=== PATIENT | female | born 2000 | race Caucasian/White ===

== ENCOUNTER 2023-06-15 19:53 | Emergency (ER) | payer OTHER, SELFPAY ==
[2023-06-15 19:58] VITALS: BP 107/81; PULSE 113; RESP 15; TEMP 37.2; O2SAT 98; BMI 21.9
--- NOTE | 2023-06-15 21:20 | ED.GENADUL1 ---
Documented by User: LEDY Mares 06/15/23 21:56 HPI - General Adult General Chief complaint: Nausea/Vomiting/Diarrhea Stated complaint: DIZZY Time Seen by Provider: 06/15/23 20:05 Source: patient Mode of arrival: walk-in Limitations: no limitations History of Present Illness HPI narrative: Patient is a 22-year-old female who presents to the emergency department for the evaluation of multiple complaints. Patient is well-known to this emergency department for a longstanding history of Crohn's disease and chronic pain to the abdomen. She states she has not had a Crohn's exacerbation in over a year, she had a colostomy placed in 2018. She sees a GI doctor at the [facility], she is not currently on any daily medications for Crohn's disease due to her recent 3 months ago. She has not had any fevers. She reports 3 days of nausea, vomiting. She has had decreased output to her colostomy bag. She reports a headache, she took a negative COVID test at home. She was apparently at [facility] 2 days ago for the same and states she was given a prescription for potassium pills. She states she saw potassium pill in her colostomy bag so she does not believe it is absorbing. She states she feels dizzy after vomiting. Related Data Allergies Allergy/AdvReac Type Severity Reaction Status Date / Time iron Allergy Intermediate Hives Verified 06/15/23 20:04 ketorolac [From Toradol] Allergy Intermediate hives Verified 06/15/23 20:04 Penicillins Allergy Intermediate Hives Verified 06/15/23 20:04 tramadol Allergy Intermediate Hives Verified 06/15/23 20:04 vancomycin Allergy Intermediate Hives Verified 06/15/23 20:04 chg Allergy Intermediate Hives Uncoded 06/15/23 20:04 Review of Systems ROS Constitutional Denies: fever or chills Ears, nose, mouth, and throat Denies: throat pain or nasal congestion Cardiovascular Denies: chest pain Respiratory Denies: shortness of breath or cough Gastrointestinal Reports: abdominal pain, nausea and vomiting; Denies: diarrhea Genitourinary Denies: painful urination Musculoskeletal Denies: back pain or neck pain Integumentary/Breast Denies: rash Neurological Reports: headache Endocrine Denies: excessive urination Exam Narrative Exam Narrative: Gen.: Awake, alert, in no distress Head: Normocephalic, atraumatic ENT: Moist mucous membranes Respiratory: No respiratory distress, lungs clear bilaterally Cardio: Regular rate and rhythm Gastrointestinal: Abdomen is soft, diffusely tender to palpation with voluntary guarding, colostomy noted to the right abdomen Extremities: Moves extremities equally Psych: Normal mood and affect Neuro: No focal neuro deficit Skin: Warm, dry, intact Constitutional Vital Signs, click to edit/add: Last Vital Signs Temp 98.9 F 06/15/23 19:58 Pulse 79 06/15/23 23:53 Resp 18 06/15/23 23:53 BP 107/72 06/15/23 23:53 Pulse Ox 100 06/15/23 23:53 O2 Del Method Room Air 06/15/23 19:58 Course Vital Signs Vital signs: Vital Signs Temperature 98.9 F 06/15/23 19:58 Pulse Rate 113 H 06/15/23 19:58 Respiratory Rate 15 06/15/23 19:58 Blood Pressure 107/81 06/15/23 19:58 Pulse Oximetry 98 06/15/23 19:58 Oxygen Delivery Method Room Air 06/15/23 19:58 Temperature 98.9 F 06/15/23 19:58 Pulse Rate 79 06/15/23 23:53 Respiratory Rate 18 06/15/23 23:53 Blood Pressure 107/72 06/15/23 23:53 Pulse Oximetry 100 06/15/23 23:53 Oxygen Delivery Method Room Air 06/15/23 19:58 Medical Decision Making MDM Narrative Medical decision making narrative: 2153: Patient found to be orthostatic positive, she was ordered to have IV fluids, medications for nausea and abdominal pain. Patient states she needs to have Benadryl with her medications for pain. I obtain records from [facility] showing the patient was there 2 days ago and signed out AGAINST MEDICAL ADVICE. Case is turned over to attending physician Medical Records Medical records reviewed: Yes I reviewed the patient's medical records Lab Data Labs: Lab Results 06/15/23 06/15/23 06/15/23 Range/Units 21:35 21:50 22:40 WBC 13.1 H (4.0-11.0) 10^3/uL RBC 4.23 (4.20-5.40) 10^6/uL Hgb 11.6 L (12.0-16.0) g/dL Hct 35.2 L (36.0-48.0) % MCV 83.2 (81.0-99.0) fL MCH 27.4 (26.7-34.0) pg MCHC 33.0 (29.9-35.2) g/dL RDW 12.7 (11.0-15.0) % Plt Count 276 (150-450) 10^3/uL MPV 10.1 (9.5-13.5) fL Neut % (Auto) 69.0 (43.0-75.0) % Lymph % (Auto) 20.7 (20.5-60.0) % [place] % (Auto) 6.3 (1.7-12.0) % Eos % (Auto) 3.1 (0.9-7.0) % Baso % (Auto) 0.7 (0.2-2.0) % Neut # (Auto) 9.1 H (1.4-6.5) 10^3/uL Lymph # (Auto) 2.7 (1.2-3.8) 10^3/uL [place] # (Auto) 0.8 (0.3-0.8) 10^3/uL Eos # (Auto) 0.4 (0.0-0.7) 10^3/uL Baso # (Auto) 0.1 (0.0-0.1) 10^3/uL Abs Immat Gran (auto) 0.03 (0.00-0.03) 10^3/uL Imm/Tot Granulo (auto) 0.2 (0.0-0.5) % ESR 34 H (<=20) mm/hr Sodium 126 L (136-145) mmol/L Potassium >10.0 H* 3.1 L (3.5-5.1) mmol/L Chloride 103 (98-107) mmol/L Carbon Dioxide 23.5 (21.0-32.0) mmol/L Anion Gap 9.88260 BUN 17.0 (7.0-18.0) mg/dL Creatinine 1.16 H (0.55-1.02) mg/dL Est GFR ( Amer) >60 (>=60) Est GFR (Non-Af Amer) 57 L (>=60) BUN/Creatinine Ratio 14.7 Glucose 94 (74-106) mg/dL Lactate 0.7 (0.4-2.0) mmol/L Calcium 8.4 L (8.5-10.1) mg/dL Total Bilirubin 1.9 H (0.2-1.0) mg/dL AST 52 H (15-37) U/L ALT 62 H (14-59) U/L Alkaline Phosphatase 185 H (46-116) U/L C-Reactive Protein <0.50 (<=0.50) mg/dL Total Protein 7.6 (6.4-8.2) g/dL Albumin 3.9 (3.4-5.0) g/dL Globulin 3.7 g/dL Albumin/Globulin Ratio 1.1 Lipase 12.0 L (16.0-77.0) U/L Serum HCG, Qual Negative (NEGATIVE) Urine Color Yellow (YELLOW) Urine Clarity Clear (CLEAR) Urine pH 5.5 (5.0-9.0) Ur Specific [place] >=1.030 A (1.005-1.025) Urine Protein 30 A (NEG/TRACE) mg/dL Urine Glucose (UA) Negative (NEGATIVE) mg/dL Urine Ketones Negative (NEGATIVE) mg/dL Urine Occult Blood Trace-i (NEGATIVE) Urine Nitrite Negative (NEGATIVE) Urine Bilirubin Negative (NEGATIVE) Urine Urobilinogen 0.2 (0.2-1.0) EU/dL Ur Leukocyte Esterase Negative (NEGATIVE) Urine RBC 0-2 (0-2) #/HPF Urine WBC 2-5 A (NONE SEEN) #/HPF Ur Squamous Epith Cells Few A (NONE/RARE) #/LPF Urine Crystals None seen (None Seen) #/HPF Urine Bacteria Moderate A (NONE SEEN) #/HPF Urine Casts None seen (NONE SEEN) #/LPF Urine Mucus None seen (NONE SEEN) Ur Culture Indicated? Yes Influenza Type A Ag Negative Influenza Type B Ag Negative Discharge Plan Discharge Chief Complaint: Nausea/Vomiting/Diarrhea Clinical Impression: Nausea and vomiting, Abdominal pain Patient Disposition: Home, Self-Care Time of Disposition Decision: 01:08 Condition: Good Instructions: Acute Nausea and Vomiting (ED), Acute Abdominal Pain (ED) Stand Alone Forms: Portal Instructions Referrals: Physician,Non-Staff, MD [Primary Care Provider] - 1 week Discharge Date/Time: 06/16/23 01:50 Documented by User: Polly Dominguez MD 06/16/23 03:31 HPI - General Adult General Chief complaint: Nausea/Vomiting/Diarrhea Stated complaint: DIZZY Time Seen by Provider: 06/15/23 20:05 Related Data Allergies Allergy/AdvReac Type Severity Reaction Status Date / Time iron Allergy Intermediate Hives Verified 06/15/23 20:04 ketorolac [From Toradol] Allergy Intermediate hives Verified 06/15/23 20:04 Penicillins Allergy Intermediate Hives Verified 06/15/23 20:04 tramadol Allergy Intermediate Hives Verified 06/15/23 20:04 vancomycin Allergy Intermediate Hives Verified 06/15/23 20:04 chg Allergy Intermediate Hives Uncoded 06/15/23 20:04 Exam Constitutional Vital Signs, click to edit/add: Last Vital Signs Temp 98.9 F 06/15/23 19:58 Pulse 79 06/15/23 23:53 Resp 18 06/15/23 23:53 BP 107/72 06/15/23 23:53 Pulse Ox 100 06/15/23 23:53 O2 Del Method Room Air 06/15/23 19:58 Course Vital Signs Vital signs: Vital Signs Temperature 98.9 F 06/15/23 19:58 Pulse Rate 113 H 06/15/23 19:58 Respiratory Rate 15 06/15/23 19:58 Blood Pressure 107/81 06/15/23 19:58 Pulse Oximetry 98 06/15/23 19:58 Oxygen Delivery Method Room Air 06/15/23 19:58 Temperature 98.9 F 06/15/23 19:58 Pulse Rate 79 06/15/23 23:53 Respiratory Rate 18 06/15/23 23:53 Blood Pressure 107/72 06/15/23 23:53 Pulse Oximetry 100 06/15/23 23:53 Oxygen Delivery Method Room Air 06/15/23 19:58 Medical Decision Making MDM Narrative Medical decision making narrative: 2153: Patient found to be orthostatic positive, she was ordered to have IV fluids, medications for nausea and abdominal pain. Patient states she needs to have Benadryl with her medications for pain. I obtain records from [facility] showing the patient was there 2 days ago and signed out AGAINST MEDICAL ADVICE. Case is turned over to attending physician This patient was seen and examined in conjunction with the PA, please refer to her full H&P. She was medicated with 4 mg of morphine for her pain prior to going to CT scan. CT scan which included in the body of this report does not show any acute Crohn's exacerbation. Patient was seen and evaluated. The results of the CT scan and labs were discussed with her at length and her mother was on a call with her to listen to the findings. The patient states that she has had decreased output from her ostomy recently. She wanted to know she is not having a Crohn's exacerbation what was causing her pain. I explained to her that she may be a little bit dehydrated which is causing some abdominal cramping but otherwise everything looked okay. She does feel compelled being discharged home but will receive additional IV fluids while she is awaiting a ride. Medical Records Medical records narrative: The [place] [id number] CT Scan Report Signed Patient: BONNIE JOHANSEN MR#: [id number] : 2000 Acct:[id number] Age/Sex: 22 / F ADM Date: 06/15/23 Loc: ER Attending Dr: Ordering Physician: Polly Dominguez Date of Service: 06/15/23 Procedure(s): CT abdomen pelvis wo con Accession Number(s): [id number] cc: Physician,Non-Staff M.D.~ The [address] [address] Patient Name: BONNIE JOHANSEN MRN: [id number] date: 2000 Sex: F Assigned Patient Location: ER Current Patient Location: ER Accession/Order Number: [id number] Exam Date: 06/15/2023 23:52 Report Date: 06/16/2023 00:49 At the request of: POLLY DOMINGUEZ Procedure: CT abdomen pelvis wo con EXAM: CT abdomen pelvis wo con HISTORY: abd pain, hx Crohn's COMPARISON: CT abdomen pelvis, 12/26/2021. TECHNIQUE: Nonenhanced CT imaging the abdomen and pelvis was performed with sagittal and coronal reconstructions. Dose reduction techniques were achieved by using automated exposure control and/or adjustment of mA and/or kV according to patient size and/or use of iterative reconstruction technique. FINDINGS: CT ABDOMEN: The lung bases are clear. The imaged heart is unremarkable. The exam is limited by the lack of IV contrast. Solid organ lesions or acute abnormalities could be missed. Allowing for this, the liver is mildly enlarged but otherwise unremarkable. The gallbladder, pancreas, spleen, adrenal glands, kidneys, stomach, small bowel, aorta and IVC are grossly unremarkable. Numerous nonenlarged subcentimeter mesenteric lymph nodes are again noted. No pathologically enlarged nodes are identified in the abdomen or pelvis. CT PELVIS: Right hemicolectomy with right lower quadrant ileostomy are unchanged. There is fatty infiltration in the mildly thickened wall of the decompressed transverse and descending colon compatible with prior colitis. No acute inflammation is seen. The pelvic small bowel loops and urinary bladder are unremarkable. There is a tampon in the vagina. The uterus is mildly enlarged with a mildly lobular contour favoring underlying fibroids. No inflammatory fat stranding, free fluid, loculated fluid or free air is seen in the abdomen or pelvis. Postoperative scarring is noted in the anterior abdominal wall in the suprapubic region. No acute osseous abnormality or suspicious bony lesion is seen. CT/CT abdomen pelvis wo con IMPRESSION: Allowing for exam limitations due to the lack of contrast, no acute diagnostic abnormality is seen in the abdomen or pelvis. Specifically, no acute exacerbation of the patient's Crohn's disease is identified on this nonenhanced exam. Chronic changes are described above. Electronically authenticated by: GENIE HALL Date: 06/16/2023 00:49 Lab Data Labs: Lab Results 06/15/23 06/15/23 06/15/23 Range/Units 21:35 21:50 22:40 WBC 13.1 H (4.0-11.0) 10^3/uL RBC 4.23 (4.20-5.40) 10^6/uL Hgb 11.6 L (12.0-16.0) g/dL Hct 35.2 L (36.0-48.0) % MCV 83.2 (81.0-99.0) fL MCH 27.4 (26.7-34.0) pg MCHC 33.0 (29.9-35.2) g/dL RDW 12.7 (11.0-15.0) % Plt Count 276 (150-450) 10^3/uL MPV 10.1 (9.5-13.5) fL Neut % (Auto) 69.0 (43.0-75.0) % Lymph % (Auto) 20.7 (20.5-60.0) % Schley % (Auto) 6.3 (1.7-12.0) % Eos % (Auto) 3.1 (0.9-7.0) % Baso % (Auto) 0.7 (0.2-2.0) % Neut # (Auto) 9.1 H (1.4-6.5) 10^3/uL Lymph # (Auto) 2.7 (1.2-3.8) 10^3/uL [place] # (Auto) 0.8 (0.3-0.8) 10^3/uL Eos # (Auto) 0.4 (0.0-0.7) 10^3/uL Baso # (Auto) 0.1 (0.0-0.1) 10^3/uL Abs Immat Gran (auto) 0.03 (0.00-0.03) 10^3/uL Imm/Tot Granulo (auto) 0.2 (0.0-0.5) % ESR 34 H (<=20) mm/hr Sodium 126 L (136-145) mmol/L Potassium >10.0 H* 3.1 L (3.5-5.1) mmol/L Chloride 103 (98-107) mmol/L Carbon Dioxide 23.5 (21.0-32.0) mmol/L Anion Gap 9.86429 BUN 17.0 (7.0-18.0) mg/dL Creatinine 1.16 H (0.55-1.02) mg/dL Est GFR ( Amer) >60 (>=60) Est GFR (Non-Af Amer) 57 L (>=60) BUN/Creatinine Ratio 14.7 Glucose 94 (74-106) mg/dL Lactate 0.7 (0.4-2.0) mmol/L Calcium 8.4 L (8.5-10.1) mg/dL Total Bilirubin 1.9 H (0.2-1.0) mg/dL AST 52 H (15-37) U/L ALT 62 H (14-59) U/L Alkaline Phosphatase 185 H (46-116) U/L C-Reactive Protein <0.50 (<=0.50) mg/dL Total Protein 7.6 (6.4-8.2) g/dL Albumin 3.9 (3.4-5.0) g/dL Globulin 3.7 g/dL Albumin/Globulin Ratio 1.1 Lipase 12.0 L (16.0-77.0) U/L Serum HCG, Qual Negative (NEGATIVE) Urine Color Yellow (YELLOW) Urine Clarity Clear (CLEAR) Urine pH 5.5 (5.0-9.0) Ur Specific [place] >=1.030 A (1.005-1.025) Urine Protein 30 A (NEG/TRACE) mg/dL Urine Glucose (UA) Negative (NEGATIVE) mg/dL Urine Ketones Negative (NEGATIVE) mg/dL Urine Occult Blood Trace-i (NEGATIVE) Urine Nitrite Negative (NEGATIVE) Urine Bilirubin Negative (NEGATIVE) Urine Urobilinogen 0.2 (0.2-1.0) EU/dL Ur Leukocyte Esterase Negative (NEGATIVE) Urine RBC 0-2 (0-2) #/HPF Urine WBC 2-5 A (NONE SEEN) #/HPF Ur Squamous Epith Cells Few A (NONE/RARE) #/LPF Urine Crystals None seen (None Seen) #/HPF Urine Bacteria Moderate A (NONE SEEN) #/HPF Urine Casts None seen (NONE SEEN) #/LPF Urine Mucus None seen (NONE SEEN) Ur Culture Indicated? Yes Influenza Type A Ag Negative Influenza Type B Ag Negative Discharge Plan Discharge Chief Complaint: Nausea/Vomiting/Diarrhea Clinical Impression: Nausea and vomiting, Abdominal pain Patient Disposition: Home, Self-Care Time of Disposition Decision: 01:08 Condition: Good Instructions: Acute Nausea and Vomiting (ED), Acute Abdominal Pain (ED) Stand Alone Forms: Portal Instructions Referrals: Physician,Non-Staff, MD [Primary Care Provider] - 1 week Discharge Date/Time: 06/16/23 01:50
[2023-06-15 21:27] VITALS: BP 100/76; PULSE 97
[2023-06-15 21:28] VITALS: BP 111/82; BP 119/102; PULSE 105; PULSE 125
[2023-06-15] MEDS: METOCLOPRAMIDE HCL 10 MG/2 ML VIAL IVP (22:00)
[2023-06-15] MEDS: DIPHENHYDRAMINE HCL 50 MG/ML (1ML) VIAL 25 MG IV (22:00)
[2023-06-15] MEDS: 0.9 % SODIUM CHLORIDE 1,000 ML 999 ML IV (22:00)
[2023-06-15] MEDS: HYOSCYAMINE SULFATE 0.125 MG TAB.SUBL SL (22:00)
[2023-06-15 22:01] LABS: Basophils Absolute Auto 0.1 10^3/uL (0.0-0.1); Basophils Percent Auto 0.7 % (0.2-2.0); Bilirubin Urine NEGATIVE (NEGATIVE); Blood Urine TRACE-I (NEGATIVE); Clarity Urine CLEAR (CLEAR); Color Urine YELLOW (YELLOW); Eosinophils Absolute Auto 0.4 10^3/uL (0.0-0.7); Eosinophils Percent Auto 3.1 % (0.9-7.0); Glucose Urine UA NEGATIVE (NEGATIVE); Hematocrit 35.2 % (36.0-48.0); Hemoglobin 11.6 g/dL (12.0-16.0); Immature Granulocytes Abs Auto 0.03 10^3/uL (0.00-0.03); Immature Granulocytes Pct Auto 0.2 % (0.0-0.5); Ketones Urine NEGATIVE (NEGATIVE); Leukocyte Esterase Urine NEGATIVE (NEGATIVE); Lymphocytes Absolute Auto 2.7 10^3/uL (1.2-3.8); Lymphocytes Percent Auto 20.7 % (20.5-60.0); Mean Corpuscular Hemoglobin 27.4 pg (26.7-34.0); Mean Corpuscular Volume 83.2 fL (81.0-99.0); Mean Platelet Volume 10.1 fL (9.5-13.5); Monocytes Absolute Auto 0.8 10^3/uL (0.3-0.8); Monocytes Percent Auto 6.3 % (1.7-12.0); Neutrophils Absolute Auto 9.1 10^3/uL (1.4-6.5); Nitrite Urine NEGATIVE (NEGATIVE); Platelet Count 276 10^3/uL (150-450); Protein Urine 30 mg/dL (NEG/TRACE); Red Blood Count 4.23 10^6/uL (4.20-5.40); Red Cell Distribution Width 12.7 % (11.0-15.0); Specific Gravity Urine >=1.030 (1.005-1.025); Urobilinogen Urine 0.2 EU/dL (0.2-1.0); White Blood Count 13.1 10^3/uL (4.0-11.0); pH Urine 5.5 (5.0-9.0)
[2023-06-15 22:03] LABS: Urine Microscopic Indicated YES
[2023-06-15 22:08] LABS: Erythrocyte Sedimentation Rate 34 mm/hr (<=20)
[2023-06-15 22:11] LABS: Bacteria Urine MODERATE #/HPF (NONE SEEN); Cast Seen? NONE SEEN #/LPF (NONE SEEN); Crystals Seen? None Seen #/HPF (None Seen); Mucus Urine NONE SEEN (NONE SEEN); RBC Urine 0-2 #/HPF (0-2); Squamous Epithelial Cell Urine FEW #/LPF (NONE/RARE)
[2023-06-15 22:12] LABS: Influenza Virus A Antigen Negative; Influenza Virus B Antigen Negative; Internal Control Within Normal Limits
[2023-06-15 22:12] LABS: Urine Culture Indicated YES
[2023-06-15 22:13] LABS: HCG Qualitative NEGATIVE (NEGATIVE)
[2023-06-15 22:16] LABS: Alanine Aminotransferase 62 U/L (14-59); Albumin Globulin Ratio 1.1; Albumin Level 3.9 g/dL (3.4-5.0); Alkaline Phosphatase 185 U/L (46-116); Aspartate Amino Transferase 52 U/L (15-37); BUN Creatinine Ratio 14.7; Bilirubin Total 1.9 mg/dL (0.2-1.0); Calcium 8.4 mg/dL (8.5-10.1); Carbon Dioxide 23.5 mmol/L (21.0-32.0); Chloride 103 mmol/L (98-107); Estimated GFR (African America >60 (>=60); Estimated GFR (Non-African Ame 57 (>=60); Globulin 3.7 g/dL; Glucose 94 mg/dL (74-106); Sodium 126 mmol/L (136-145); Total Protein 7.6 g/dL (6.4-8.2)
[2023-06-15 22:19] LABS: Lactate/Lactic Acid 0.7 mmol/L (0.4-2.0)
[2023-06-15 22:29] LABS: Potassium >10.0 mmol/L (3.5-5.1)
[2023-06-15 22:30] LABS: C Reactive Protein <0.50 mg/dL (<=0.50)
--- NOTE | 2023-06-15 22:34 | CT_ITS ---
The [address] [address] Patient Name: BONNIE JOHANSEN MRN: [id number] date: 2000 Sex: F Assigned Patient Location: ER Current Patient Location: ER Accession/Order Number: [id number] Exam Date: 06/15/2023 23:52 Report Date: 06/16/2023 00:49 At the request of: MELLISSA MARKER Procedure: CT abdomen pelvis wo con EXAM: CT abdomen pelvis wo con HISTORY: abd pain, hx Crohn's COMPARISON: CT abdomen pelvis, 12/26/2021. TECHNIQUE: Nonenhanced CT imaging the abdomen and pelvis was performed with sagittal and coronal reconstructions. Dose reduction techniques were achieved by using automated exposure control and/or adjustment of mA and/or kV according to patient size and/or use of iterative reconstruction technique. FINDINGS: CT ABDOMEN: The lung bases are clear. The imaged heart is unremarkable. The exam is limited by the lack of IV contrast. Solid organ lesions or acute abnormalities could be missed. Allowing for this, the liver is mildly enlarged but otherwise unremarkable. The gallbladder, pancreas, spleen, adrenal glands, kidneys, stomach, small bowel, aorta and IVC are grossly unremarkable. Numerous nonenlarged subcentimeter mesenteric lymph nodes are again noted. No pathologically enlarged nodes are identified in the abdomen or pelvis. CT PELVIS: Right hemicolectomy with right lower quadrant ileostomy are unchanged. There is fatty infiltration in the mildly thickened wall of the decompressed transverse and descending colon compatible with prior colitis. No acute inflammation is seen. The pelvic small bowel loops and urinary bladder are unremarkable. There is a tampon in the vagina. The uterus is mildly enlarged with a mildly lobular contour favoring underlying fibroids. No inflammatory fat stranding, free fluid, loculated fluid or free air is seen in the abdomen or pelvis. Postoperative scarring is noted in the anterior abdominal wall in the suprapubic region. No acute osseous abnormality or suspicious bony lesion is seen. CT/CT abdomen pelvis wo con IMPRESSION: Allowing for exam limitations due to the lack of contrast, no acute diagnostic abnormality is seen in the abdomen or pelvis. Specifically, no acute exacerbation of the patient's Crohn's disease is identified on this nonenhanced exam. Chronic changes are described above. Electronically authenticated by: GENIE HALL Date: 06/16/2023 00:49
[2023-06-15 23:01] LABS: Potassium 3.1 mmol/L (3.5-5.1)
[2023-06-15] MEDS: MORPHINE SULFATE 4 MG/ML VIAL IV (23:40)
[2023-06-15 23:53] VITALS: BP 107/72; PULSE 79; RESP 18; O2SAT 100
[2023-06-16] MEDS: 0.9 % SODIUM CHLORIDE 1,000 ML 1000 ML IV (01:27)
== END 2023-06-16 01:50 | disposition home or self-care (01) ==
PROVIDERS: Physician Assistant; Emergency Provider Emergency Medicine
DX: R11.2 Nausea with vomiting, unspecified (principal); R10.9 Unspecified abdominal pain; K50.90 Crohn's disease, unspecified, without complications; Z93.3 Colostomy status; R51.9 Headache, unspecified; R42 Dizziness and giddiness
CPT/HCPCS: 36415; 74176; 80053; 81001; 83605; 83690; 84132; 84703; 85025; 85652; 86140; 87086; 87804; 96361; 96374; 96375; 99284

== ENCOUNTER 2024-04-03 20:57 | Emergency (ER) | payer OTHER, SELFPAY ==
[2024-04-03 21:05] VITALS: BP 114/75; PULSE 57; TEMP 37; O2SAT 99; BMI 22.9
--- NOTE | 2024-04-03 21:21 | PC.NURSE ---
Patient states she had bright red blood in her colostomy bag at 1860. Patient currently has bag full of yellow liquid stool, no blood noted at this time. stoma is nice and pink. patient bag is leaking. 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
--- NOTE | 2024-04-03 21:22 | ED_ITS ---
HPI - GI Bleed General Chief complaint: GI Bleed Stated complaint: Package Dye Stand Loader Issues Time Seen by Provider: 04/03/24 21:06 Source: patient Mode of arrival: walk-in Limitations: no limitations History of Present Illness HPI Narrative: patient states she has history of Crohn's disease. has colostomy bag. States she is scheduled for reversal surgery at [facility]. States tonight she noticed blood from her stoma. States called [facility] and was advised to go to ER. States her colostomy bag is also leaking and she does not have any replacement bags no fever. States she does have abdominal pain. Related Data Allergies Allergy/AdvReac Type Severity Reaction Status Date / Time iron Allergy Intermediate Hives Verified 04/03/24 21:14 ketorolac (From Toradol) Allergy Intermediate hives Verified 04/03/24 21:14 Penicillins Allergy Intermediate Hives Verified 04/03/24 21:14 tramadol Allergy Intermediate Hives Verified 04/03/24 21:14 vancomycin Allergy Intermediate Hives Verified 04/03/24 21:14 chg Allergy Intermediate Hives Uncoded 04/03/24 21:14 Review of Systems ROS Status of ROS 10 or more systems reviewed and unremark able except as noted in history and below PFSH PFSH Social History Little interest or pleasure in doing things: not at all Feeling down, depressed, or hopeless: not at all Exam Constitutional Vital Signs, click to edit/add: Last Vital Signs Temp 98.6 F 04/03/24 21:05 Pulse 71 04/03/24 21:54 Resp 18 04/03/24 21:05 BP 102/75 04/03/24 21:54 Pulse Ox 99 04/03/24 21:05 Common normals: no apparent distress, average body habitus, oriented x3, no limitations, healthy appearing, alert and well nourished [facility] Common normals: normocephalic and head/scalp atraumatic Eye Common normals: PERRL and EOMs intact bilaterally Respiratory Common normals: normal respiratory effort, no retractions, no use of accessory muscles and clear to auscultation bilaterally Cardio Common normals: regular rate, regular rhythm, S1 normal heart sound and S2 normal heart sound GI Common normals: Normal to inspection, nondistended, normoactive bowel sounds present (colostomy bag in place. Stoma viewed thru the bag appears normal), soft to palpation and non-tender (no evidence of blood in the bag. mild leakage from right side of bag) Extremity Common normals: normal to inspection and full ROM Neuro Common normals: oriented x3, CN's II-XII intact bilaterally and moves all extremities Psych Appearance: grossly normal Course Vital Signs Vital signs: Vital Signs Temperature 98.6 F 04/03/24 21:05 Pulse Rate 57 L 04/03/24 21:05 Respiratory Rate 18 04/03/24 21:05 Blood Pressure 114/75 04/03/24 21:05 Pulse Oximetry 99 04/03/24 21:05 Temperature 98.6 F 04/03/24 21:05 Pulse Rate 71 04/03/24 21:54 Respiratory Rate 18 04/03/24 21:05 Blood Pressure 102/75 04/03/24 21:54 Pulse Oximetry 99 04/03/24 21:05 MDM - GI Bleed MDM Narrative Medical decision making narrative: patient presents complaining of bleeding from her colostomy bag. content in bag appear normal in appearance. bag changed and stoma appears normal as well. No evidence of bleeding. CBC remains at baseline. Patient discharged home to followup with GI. States she is suppose to have her colostomy reversed next week Lab Data Labs: Lab Results 04/03/24 Range/Units 21:30 WBC 9.8 (4.0-11.0) 10^3/uL RBC 4.16 L (4.20-5.40) 10^6/uL Hgb 11.0 L (12.0-16.0) g/dL Hct 33.8 L (36.0-48.0) % MCV 81.3 (81.0-99.0) fL MCH 26.4 L (26.7-34.0) pg MCHC 32.5 (29.9-35.2) g/dL RDW 13.2 (11.0-15.0) % Plt Count 187 (150-450) 10^3/uL MPV 10.2 (9.5-13.5) fL Neut % (Auto) 57.0 (43.0-75.0) % Lymph % (Auto) 28.8 (20.5-60.0) % [place] % (Auto) 5.9 (1.7-12.0) % Eos % (Auto) 7.3 H (0.9-7.0) % Baso % (Auto) 0.8 (0.2-2.0) % Neut # (Auto) 5.6 (1.4-6.5) 10^3/uL Lymph # (Auto) 2.8 (1.2-3.8) 10^3/uL [place] # (Auto) 0.6 (0.3-0.8) 10^3/uL Eos # (Auto) 0.7 (0.0-0.7) 10^3/uL Baso # (Auto) 0.1 (0.0-0.1) 10^3/uL Abs Immat Gran (auto) 0.02 (0.00-0.03) 10^3/uL Imm/Tot Granulo (auto) 0.2 (0.0-0.5) % Sodium 137 (136-145) mmol/L Potassium 3.6 (3.5-5.1) mmol/L Chloride 102 (98-107) mmol/L Carbon Dioxide 25.2 (21.0-32.0) mmol/L Anion Gap 13.4 BUN 9.0 (7.0-18.0) mg/dL Creatinine 1.31 H (0.55-1.02) mg/dL Est GFR ( Amer) 60 (>=60 mL/min/1.73m^2) Est GFR (Non-Af Amer) 49 L (>=60 mL/min/1.73m^2) BUN/Creatinine Ratio 6.9 Glucose 127 H (74-106) mg/dL Calcium 9.4 (8.5-10.1) mg/dL Discharge Plan Discharge Chief Complaint: GI Bleed Clinical Impression: Abdominal pain Patient Disposition: Home, Self-Care Print Language: Albanian Instructions: Colostomy Care (ED), Abdominal Pain (ED) Referrals: [facility]ILY[facility] [Primary Care Provider] - 1 week
[2024-04-03 21:36] LABS: Basophils Absolute Auto 0.1 10^3/uL (0.0-0.1); Basophils Percent Auto 0.8 % (0.2-2.0); Eosinophils Absolute Auto 0.7 10^3/uL (0.0-0.7); Eosinophils Percent Auto 7.3 % (0.9-7.0); Hematocrit 33.8 % (36.0-48.0); Immature Granulocytes Abs Auto 0.02 10^3/uL (0.00-0.03); Immature Granulocytes Pct Auto 0.2 % (0.0-0.5); Lymphocytes Absolute Auto 2.8 10^3/uL (1.2-3.8); Lymphocytes Percent Auto 28.8 % (20.5-60.0); Mean Corpuscular HGB Conc 32.5 g/dL (29.9-35.2); Mean Corpuscular Hemoglobin 26.4 pg (26.7-34.0); Mean Corpuscular Volume 81.3 fL (81.0-99.0); Mean Platelet Volume 10.2 fL (9.5-13.5); Monocytes Absolute Auto 0.6 10^3/uL (0.3-0.8); Monocytes Percent Auto 5.9 % (1.7-12.0); Neutrophils Absolute Auto 5.6 10^3/uL (1.4-6.5); Platelet Count 187 10^3/uL (150-450); Red Blood Count 4.16 10^6/uL (4.20-5.40); Red Cell Distribution Width 13.2 % (11.0-15.0); White Blood Count 9.8 10^3/uL (4.0-11.0)
[2024-04-03 21:50] LABS: Anion Gap 13.4; BUN Creatinine Ratio 6.9; Calcium 9.4 mg/dL (8.5-10.1); Carbon Dioxide 25.2 mmol/L (21.0-32.0); Chloride 102 mmol/L (98-107); Estimated GFR (African America 60 (>=60 mL/min/1.73m^2); Estimated GFR (Non-African Ame 49 (>=60 mL/min/1.73m^2); Glucose 127 mg/dL (74-106); Potassium 3.6 mmol/L (3.5-5.1); Sodium 137 mmol/L (136-145)
[2024-04-03 21:54] VITALS: BP 102/75; BP 115/77; BP 98/75; PULSE 71; PULSE 80; PULSE 83
--- NOTE | 2024-04-03 22:09 | PC.NURSE ---
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 Pt states that she changed the colostomy bag and still has blood in her bag. Pt shows financial writer bag and small amount of very watery light red noted in colostomy drainage bag. Dr Gonzalez aware.
== END 2024-04-03 22:26 | disposition home or self-care (01) ==
PROVIDERS: Emergency Provider Internal Medicine
DX: R10.9 Unspecified abdominal pain (principal); K50.90 Crohn's disease, unspecified, without complications; Z43.3 Encounter for attention to colostomy
CPT/HCPCS: 36415; 80048; 85025; 99283

== ENCOUNTER 2024-08-06 16:51 | Inpatient (IN) | payer OTHER, SELFPAY ==
[2024-08-06 16:59] VITALS: BP 97/80; PULSE 115; TEMP 36.8; O2SAT 99; BMI 19.5
--- NOTE | 2024-08-06 19:40 | ED.GENADUL1 ---
HPI HPI - General Adult General Chief complaint: Abdominal Pain Stated complaint: nausea, abdominal pain Time Seen by Provider: 08/06/24 19:33 Source: patient Mode of arrival: walk-in Limitations: no limitations History of Present Illness HPI narrative: 23-year-old female presents for abdominal pain and some blood in her stool. She has a history of Crohn's disease and she believes she is having a flareup. No fever or hematemesis. This is her first flareup since March. She states she has not been able to drink much liquids and feels like she might be dehydrated. Her pain is moderate and continuous. Related Data Allergies Allergy/AdvReac Type Severity Reaction Status Date / Time iron Allergy Intermediate Hives Verified 04/03/24 21:14 ketorolac (From Toradol) Allergy Intermediate hives Verified 04/03/24 21:14 Penicillins Allergy Intermediate Hives Verified 04/03/24 21:14 tramadol Allergy Intermediate Hives Verified 04/03/24 21:14 vancomycin Allergy Intermediate Hives Verified 04/03/24 21:14 chg Allergy Intermediate Hives Uncoded 04/03/24 21:14 Opioid HPI Opioid Management Most Recent Opioid Data: Last Pain Scale 8 08/06/24 21:44 08/06/24 Last ED Pain Assessment 08/06/24 20:51 Review of Systems ROS Narrative A ten point review of systems is negative except as noted above. PFSH PFSH Social History Little interest or pleasure in doing things: not at all Feeling down, depressed, or hopeless: not at all Exam Narrative Exam Narrative: Nurses note and vital signs reviewed and patient is not hypoxic. General: The patient appears in no apparent distress. Skin: Warm, dry, no pallor noted. There is no rash noted. Head: Normocephalic, atraumatic Eye: Normal conjunctiva, no drainage Ears, Nose, Mouth, and Throat: oral mucosa is slightly dry. Nares patent. Cardiovascular: Regular Rate and Rhythm, mildly tachycardic Respiratory: Patient is in no distress, no accessory muscle use, lungs are clear to auscultation, no wheezing, rales or rhonchi Back: non-tender GI: Soft and nondistended. Mild diffuse tenderness. Old healed surgical scars present. Musculoskeletal: The patient has no evidence of calf tenderness, no pitting edema, symmetrical pulses noted bilaterally Neurological: A&O, normal speech Psychiatric: Cooperative Constitutional Vital Signs, click to edit/add: Last Vital Signs Temp 98.2 F 08/06/24 16:59 Pulse 86 08/06/24 23:57 Resp 16 08/06/24 23:57 BP 128/74 08/06/24 23:57 Pulse Ox 98 08/06/24 23:57 O2 Del Method Room Air 08/06/24 23:57 Course Vital Signs Vital signs: Vital Signs Temperature 98.2 F 08/06/24 16:59 Pulse Rate 115 H 08/06/24 16:59 Respiratory Rate 18 08/06/24 16:59 Blood Pressure 97/80 08/06/24 16:59 Pulse Oximetry 99 08/06/24 16:59 Oxygen Delivery Method Room Air 08/06/24 16:59 Temperature 98.2 F 08/06/24 16:59 Pulse Rate 86 08/06/24 23:57 Respiratory Rate 16 08/06/24 23:57 Blood Pressure 128/74 08/06/24 23:57 Pulse Oximetry 98 08/06/24 23:57 Oxygen Delivery Method Room Air 08/06/24 23:57 Medical Decision Making MDM Narrative Medical decision making narrative: WBC is 12,000. CT scan is consistent with Crohn's exacerbation. I spoke with Dr. Montoya, covering Dr. Key who is the patient's regular call center dispatcher. He recommends that the patient be admitted. We are unable to admit her here due to the lack of coverage of GI and general surgery. He recommends transferring the patient to the [facility] and I have spoken to Dr. Valentin there who accepts the patient. Dr. Montoya recommended that we order C. difficile test, stool culture, and fecal calprotectin. He recommended waiting for the C. difficile test before administering any IV steroids. He understands that we will not get the C. difficile test back tonight. The patient is excepted at the [facility] and she is agreeable and stable for transfer. Differential Diagnosis Differential Diagnosis: Crohn's exacerbation, abscess, perforation, bowel obstruction Lab Data Lab results reviewed: Yes I reviewed the patient's lab results Labs: Lab Results 08/06/24 08/06/24 Range/Units 19:45 20:20 WBC 12.4 H (4.0-11.0) 10^3/uL RBC 3.87 L (4.20-5.40) 10^6/uL Hgb 9.6 L (12.0-16.0) g/dL Hct 29.9 L (36.0-48.0) % MCV 77.3 L (81.0-99.0) fL MCH 24.8 L (26.7-34.0) pg MCHC 32.1 (29.9-35.2) g/dL RDW 14.8 (11.0-15.0) % Plt Count 301 (150-450) 10^3/uL MPV 9.0 L (9.5-13.5) fL Neut % (Auto) 62.1 (43.0-75.0) % Lymph % (Auto) 25.5 (20.5-60.0) % [place] % (Auto) 8.2 (1.7-12.0) % Eos % (Auto) 3.2 (0.9-7.0) % Baso % (Auto) 0.6 (0.2-2.0) % Neut # (Auto) 7.7 H (1.4-6.5) 10^3/uL Lymph # (Auto) 3.2 (1.2-3.8) 10^3/uL [place] # (Auto) 1.0 H (0.3-0.8) 10^3/uL Eos # (Auto) 0.4 (0.0-0.7) 10^3/uL Baso # (Auto) 0.1 (0.0-0.1) 10^3/uL Abs Immat Gran (auto) 0.05 H (0.00-0.03) 10^3/uL Imm/Tot Granulo (auto) 0.4 (0.0-0.5) % Sodium 133 L (136-145) mmol/L Potassium 3.6 (3.5-5.1) mmol/L Chloride 99 (98-107) mmol/L Carbon Dioxide 32.1 H (21.0-32.0) mmol/L Anion Gap 5.5 BUN 8.0 (7.0-18.0) mg/dL Creatinine 1.08 H (0.55-1.02) mg/dL Est GFR ( Amer) >60 (>=60 mL/min/1.73m^2) Est GFR (Non-Af Amer) >60 (>=60 mL/min/1.73m^2) BUN/Creatinine Ratio 7.4 Glucose 95 (74-106) mg/dL Calcium 8.0 L (8.5-10.1) mg/dL Total Bilirubin 0.6 (0.2-1.0) mg/dL Direct Bilirubin 0.2 (0.0-0.2) mg/dL AST 9 L (15-37) U/L ALT 8 L (14-59) U/L Alkaline Phosphatase 41 L (46-116) U/L Total Protein 5.8 L (6.4-8.2) g/dL Albumin 2.1 L (3.4-5.0) g/dL Globulin 3.7 g/dL Albumin/Globulin Ratio 0.6 Lipase <10.0 L (16.0-77.0) U/L Serum HCG, Qual Negative (NEGATIVE) Urine Color Dk. yellow (YELLOW) Urine Clarity Clear (CLEAR) Urine pH 6.5 (5.0-9.0) Ur Specific [place] 1.020 (1.005-1.025) Urine Protein 30 A (NEG/TRACE) mg/dL Urine Glucose (UA) Negative (NEGATIVE) mg/dL Urine Ketones Negative (NEGATIVE) mg/dL Urine Occult Blood Negative (NEGATIVE) Urine Nitrite Negative (NEGATIVE) Urine Bilirubin Small A (NEGATIVE) Urine Urobilinogen 0.2 (0.2-1.0) EU/dL Ur Leukocyte Esterase Negative (NEGATIVE) Urine RBC 0-2 (0-2) #/HPF Urine WBC 0-2 A (NONE SEEN) #/HPF Ur Squamous Epith Cells Rare (NONE/RARE) #/LPF Urine Crystals None seen (None Seen) #/HPF Urine Bacteria Small A (NONE SEEN) #/HPF Urine Casts None seen (NONE SEEN) #/LPF Urine Mucus Trace A (NONE SEEN) Ur Culture Indicated? Yes-[facility] [place] Imaging Data CT scan - abdomen: Radiologist's impression: ITS Impressions Abdomen/Pelvis CT 08/06/24 20:26 IMPRESSION: Imaging findings on this examination are consistent with colitis related to the transverse, descending and rectosigmoid colon. This is most likely inflammatory colitis secondary to the patient's reported clinical history of Crohn's disease. Electronically authenticated by: HUONG REYES Date: 08/06/2024 22:14 Discharge Plan Discharge Chief Complaint: Abdominal Pain Clinical Impression: Exacerbation of Crohn's disease Patient Disposition: [facility] Time of Disposition Decision: 01:37 Discharge Location: [facility] Condition: Fair Mode of Transportation: EMS
[2024-08-06 19:57] LABS: Basophils Absolute Auto 0.1 10^3/uL (0.0-0.1); Basophils Percent Auto 0.6 % (0.2-2.0); Eosinophils Absolute Auto 0.4 10^3/uL (0.0-0.7); Eosinophils Percent Auto 3.2 % (0.9-7.0); Hematocrit 29.9 % (36.0-48.0); Hemoglobin 9.6 g/dL (12.0-16.0); Immature Granulocytes Abs Auto 0.05 10^3/uL (0.00-0.03); Immature Granulocytes Pct Auto 0.4 % (0.0-0.5); Lymphocytes Absolute Auto 3.2 10^3/uL (1.2-3.8); Lymphocytes Percent Auto 25.5 % (20.5-60.0); Mean Corpuscular HGB Conc 32.1 g/dL (29.9-35.2); Mean Corpuscular Hemoglobin 24.8 pg (26.7-34.0); Mean Corpuscular Volume 77.3 fL (81.0-99.0); Monocytes Percent Auto 8.2 % (1.7-12.0); Neutrophils Absolute Auto 7.7 10^3/uL (1.4-6.5); Neutrophils Percent Auto 62.1 % (43.0-75.0); Platelet Count 301 10^3/uL (150-450); Red Blood Count 3.87 10^6/uL (4.20-5.40); Red Cell Distribution Width 14.8 % (11.0-15.0); White Blood Count 12.4 10^3/uL (4.0-11.0)
[2024-08-06 20:12] LABS: Alanine Aminotransferase 8 U/L (14-59); Albumin Globulin Ratio 0.6; Albumin Level 2.1 g/dL (3.4-5.0); Alkaline Phosphatase 41 U/L (46-116); Anion Gap 5.5; Aspartate Amino Transferase 9 U/L (15-37); BUN Creatinine Ratio 7.4; Bilirubin Direct 0.2 mg/dL (0.0-0.2); Bilirubin Total 0.6 mg/dL (0.2-1.0); Carbon Dioxide 32.1 mmol/L (21.0-32.0); Chloride 99 mmol/L (98-107); Estimated GFR (African America >60 (>=60 mL/min/1.73m^2); Estimated GFR (Non-African Ame >60 (>=60 mL/min/1.73m^2); Globulin 3.7 g/dL; Glucose 95 mg/dL (74-106); Lipase <10.0 U/L (16.0-77.0); Potassium 3.6 mmol/L (3.5-5.1); Sodium 133 mmol/L (136-145); Total Protein 5.8 g/dL (6.4-8.2)
[2024-08-06] MEDS: MORPHINE SULFATE 4 MG/ML VIAL IV ×2 (20:12→21:44)
[2024-08-06] MEDS: 0.9 % SODIUM CHLORIDE 1,000 ML 1000 ML IV (20:12)
[2024-08-06] MEDS: ONDANSETRON PF 4 MG/2 ML VIAL IV (20:13)
[2024-08-06] MEDS: DIPHENHYDRAMINE HCL 50 MG/ML VIAL 25 MG IV ×2 (20:13→21:33)
[2024-08-06 20:16] LABS: HCG Qualitative NEGATIVE (NEGATIVE); Internal Control Within Normal Limits
--- NOTE | 2024-08-06 20:25 | PC.NURSE ---
L SC port accessed with Perez needle x 1 attempt with good blood return. Labs drawn and sent using sterile technique. Pt tolerated this procedure well.
--- NOTE | 2024-08-06 20:26 | CT_ITS ---
The [address] [address] Patient Name: OBNNIE JOHANSEN MRN: [id number] date: 2000 Sex: F Assigned Patient Location: ER Current Patient Location: ER Accession/Order Number: [id number] Exam Date: 08/06/2024 21:09 Report Date: 08/06/2024 22:14 At the request of: LAVONNE MASTERSON Procedure: CT abdomen pelvis w con CT ABDOMEN AND PELVIS WITH CONTRAST: INDICATION: Pain, history of Crohn's disease. COMPARISON: 06/15/2023. TECHNIQUE:Multiple thin section transaxial slices were acquired through the abdomen and pelvis with intravenous contrast. Coronal and sagittal reconstructed images were reviewed. Oral contrastWas not administered. FINDINGS: LOWER CHEST: The lower chest is unremarkable. LIVER: The liver is unremarkable. GALLBLADDER AND BILIARY SYSTEM: No obvious ductal dilation. No calcified stones. SPLEEN: The spleen is unremarkable. PANCREAS: The pancreas is unremarkable. ADRENAL GLANDS: The adrenal glands are unremarkable. KIDNEYS AND URETERS: There is no hydronephrosis of the kidneys.No obstructing urologic calcifications are present. VASCULATURE: Vascularity is unremarkable. PERITONEUM/RETROPERITONEUM: There is a small amount of presacral edema. No free air is present. There are no organized fluid collections. LYMPH NODES: No suspicious lymphadenopathy. GASTROINTESTINAL TRACT: There is a nonobstructive bowel gas pattern.There is irregular enhancing wall thickening associated with the rectosigmoid colon, transverse and descending colon consistent with colitis. Postsurgical changes are present from partial bowel resection in the right abdomen.The appendix is absent. BLADDER: The urinary bladder is unremarkable. REPRODUCTIVE SYSTEM: Reproductive system is unremarkable. BODY WALL: Unremarkable. BONES: Osseous structures are unremarkable. CT/CT abdomen pelvis w con IMPRESSION: Imaging findings on this examination are consistent with colitis related to the transverse, descending and rectosigmoid colon. This is most likely inflammatory colitis secondary to the patient's reported clinical history of Crohn's disease. Electronically authenticated by: HUONG REYES Date: 08/06/2024 22:14
[2024-08-06 20:27] LABS: Bilirubin Urine SMALL (NEGATIVE); Blood Urine NEGATIVE (NEGATIVE); Clarity Urine CLEAR (CLEAR); Color Urine DK. YELLOW (YELLOW); Glucose Urine UA NEGATIVE (NEGATIVE); Ketones Urine NEGATIVE (NEGATIVE); Leukocyte Esterase Urine NEGATIVE (NEGATIVE); Nitrite Urine NEGATIVE (NEGATIVE); Protein Urine 30 mg/dL (NEG/TRACE); Urobilinogen Urine 0.2 EU/dL (0.2-1.0); pH Urine 6.5 (5.0-9.0)
[2024-08-06 20:37] LABS: Bacteria Urine SMALL #/HPF (NONE SEEN); Cast Seen? NONE SEEN #/LPF (NONE SEEN); Crystals Seen? None Seen #/HPF (None Seen); Mucus Urine TRACE (NONE SEEN); RBC Urine 0-2 #/HPF (0-2); Squamous Epithelial Cell Urine RARE #/LPF (NONE/RARE); Urine Culture Indicated YES-FRMC; WBC Urine 0-2 #/HPF (NONE SEEN)
--- NOTE | 2024-08-06 22:38 | PC.NURSE ---
Attempting to get a hold of Dr. Key GI. [phone].
--- NOTE | 2024-08-06 22:53 | PC.NURSE ---
Dr Potts speaks with on-call GI from [facility].
--- NOTE | 2024-08-06 23:02 | PC.NURSE ---
Awaiting acceptance and a room at the [facility].
[2024-08-06 23:57] VITALS: BP 128/74; PULSE 86; O2SAT 98
[2024-08-07] VITALS (7 sets, daily range): BP systolic 99–118; BP diastolic 63–81; PULSE 64–90; TEMP 36.7–36.9; O2SAT 93–100; BMI 18.5
--- NOTE | 2024-08-07 00:57 | PC.NURSE ---
Popsicle given as per pt request.
[2024-08-07] MEDS: MORPHINE SULFATE 4 MG/ML VIAL IV ×3 (01:53→13:16)
[2024-08-07] MEDS: DIPHENHYDRAMINE HCL 50 MG/ML VIAL 25 MG IV (11:25)
[2024-08-07] MEDS: ONDANSETRON PF 4 MG/2 ML VIAL IV ×2 (11:25→17:43)
--- NOTE | 2024-08-07 13:55 | PM.HP ---
HPI H&P: HPI History of Present Illness Chief complaint: nausea, abdominal pain [place] Narrative: 23-year-old female with history of Crohn's disease presented to ER with 2-day history of nausea, vomiting, abdominal pain with diarrhea. She also reports small amount of blood in her stool. She denies fever. Her pain is intermittent and a 10 out of 10 at its worst. Workup in ER revealed colitis likely secondary to Crohn's flareup. Since our facility does not have GI coverage, ED provider initiated a transfer to [facility] however because of bed unavailability, she was admitted to [facility] where she gets a bed at [facility]. Her C. difficile testing is pending. Patient started on IV Solu-Medrol along with Cipro/Flagyl. At the time of my evaluation, patient had just received IV morphine and felt better overall. But she is still feeling nauseous and has mild abdominal discomfort at this moment. Of note, she previously had a ileostomy and had it reversed in March 2024 and since then this is her first Crohn's flareup. She is currently on low-dose prednisone for Crohn's. Opioid HPI Opioid Management Most Recent Pain and Opioid Data: Last Pain Scale 9 08/07/24 13:16 08/07/24 Last ED Pain Assessment 08/06/24 20:51 Last MAR Pain Assessment 08/07/24 13:16 Last ORT Total Score 13 08/07/24 12:47 08/07/24 Last ORT Risk Category High Risk 08/07/24 12:47 08/07/24 Review of Systems ROS Status of ROS 10 or more systems reviewed and unremarkable except as noted in history and below [facility] Medical History (Updated 08/07/24 @ 13:59 by Shaikh Giancarlo MD) Diarrhea ?R19.7 - Diarrhea, unspecified (ICD-10) Anxiety ?F41.9 - Anxiety disorder, unspecified (ICD-10) IBS (irritable bowel syndrome) ?K58.9 - Irritable bowel syndrome, unspecified (ICD-10) Crohn disease ?K50.90 - Crohn's disease, unspecified, without complications (ICD-10) Surgical History (Updated 08/07/24 @ 06:32 by Asya Joseph RN) History of colostomy reversal ?Z98.890 - Other specified postprocedural states (ICD-10) History of colon resection ?Z90.49 - Acquired absence of other specified parts of digestive tract (ICD-10) Social History Highest level of school completed/degree received: high school graduate Little interest or pleasure in doing things: not at all Feeling down, depressed, or hopeless: not at all Meds Home Medications and Allergies Home Medications ?Medication ?Instructions ?Recorded ?Confirmed ?Type calcium polycarbophil 625 mg mg 08/07/24 History tablet (Fiber (calcium polycarbophil)) diphenoxylate-atropine 2.5 2 tab PO Q6H PRN diarrhea 08/07/24 08/07/24 History mg-0.025 mg tablet loperamide 2 mg capsule 4 mg PO Q6H PRN loose stool 08/07/24 08/07/24 History ondansetron 4 mg disintegrating 4 mg PO Q6H PRN nausea and vomiting 08/07/24 08/07/24 History tablet prednisone 5 mg tablet mg PO 08/07/24 History Allergies Allergy/AdvReac Type Severity Reaction Status Date / Time iron Allergy Intermediate Hives Verified 04/03/24 21:14 ketorolac (From Toradol) Allergy Intermediate hives Verified 04/03/24 21:14 Penicillins Allergy Intermediate Hives Verified 04/03/24 21:14 tramadol Allergy Intermediate Hives Verified 04/03/24 21:14 vancomycin Allergy Intermediate Hives Verified 04/03/24 21:14 chg Allergy Intermediate Hives Uncoded 04/03/24 21:14 Exam Constitutional Vital Signs, click to edit/add: Last Vital Signs Temp 98.0 F 08/07/24 12:47 Pulse 82 08/07/24 12:47 Resp 16 08/07/24 12:47 BP 106/63 08/07/24 12:47 Pulse Ox 100 08/07/24 12:47 O2 Del Method Room Air 08/07/24 12:47 Documenting provider has reviewed patient's vital signs: yes Common normals: no apparent distress and oriented x3 General appearance: cooperative HENMT Common normals: normocephalic and head/scalp atraumatic Head and scalp: normocephalic and atraumatic Eye Common normals: conjunctivae normal and no scleral icterus Conjunctiva: conjunctiva(e) normal Respiratory Common normals: normal respiratory effort and clear to auscultation bilaterally Effort & inspection: able to speak in complete sentences Auscultation: clear to auscultation bilaterally Cardio Common normals: regular rate, S1 normal heart sound and S2 normal heart sound Rate: regular rate Heart sounds: S1 normal and S2 normal GI Common normals: Normal to inspection, nondistended, normoactive bowel sounds present, soft to palpation, non-tender and no hepatosplenomegaly Palpation: soft and no hepatosplenomegaly Other: Well-healed surgical scar in right lower abdomen Extremity Common normals: no clubbing, cyanosis or edema Neuro Common normals: oriented x3, moves all extremities and no focal motor deficits Psych Common normals: mental status grossly normal, denies hallucinations, denies homicidal ideation and denies suicidal ideation Results Labs Labs: Short CBC 08/06/24 Range/Units 19:45 WBC 12.4 H (4.0-11.0) 10^3/uL Hgb 9.6 L (12.0-16.0) g/dL Hct 29.9 L (36.0-48.0) % Plt Count 301 (150-450) 10^3/uL BMP 08/06/24 19:45 Sodium 133 L Potassium 3.6 Chloride 99 Carbon Dioxide 32.1 H BUN 8.0 Creatinine 1.08 H Glucose 95 Calcium 8.0 L Liver Function 08/06/24 Range/Units 19:45 Total Bilirubin 0.6 (0.2-1.0) mg/dL Direct Bilirubin 0.2 (0.0-0.2) mg/dL AST 9 L (15-37) U/L ALT 8 L (14-59) U/L Alkaline Phosphatase 41 L (46-116) U/L Albumin 2.1 L (3.4-5.0) g/dL Urine 08/06/24 Range/Units 20:20 Urine Color Dk. yellow (YELLOW) Urine Clarity Clear (CLEAR) Urine pH 6.5 (5.0-9.0) Ur Specific [place] 1.020 (1.005-1.025) Urine Protein 30 A (NEG/TRACE) mg/dL Urine Glucose (UA) Negative (NEGATIVE) mg/dL Assessment and Plan Assessment and Plan (1) Exacerbation of Crohn's disease: Qualifiers: Digestive disease complication type: with rectal bleeding Qualified Code(s): K50.911 - Crohn's disease, unspecified, with rectal bleeding (2) Abdominal pain: Qualifiers: Abdominal location: generalized Qualified Code(s): R10.84 - Generalized abdominal pain (3) Nausea and vomiting: Qualifiers: Vomiting type: unspecified Qualified Code(s): R11.2 - Nausea with vomiting, unspecified Plan Admitted for Crohn's flareup. Started on IV hydration, IV Solu-Medrol along with Cipro/Flagyl. On full liquid diet. Advance diet as tolerated. awaiting bed availability at [facility]. Continue with supportive care and use Zofran as needed for nausea, vomiting. Patient is on oral oxy/IV morphine as needed for pain. Patient requested IV Benadryl as needed for itching which is a chronic and ongoing issue for her. Ordered Benadryl 12.5 every 6 as needed for itching.
[2024-08-07] MEDS: LACTATED RINGER'S SOLUTION 1,000 ML 125 ML IV ×2 (15:02→21:40)
[2024-08-07] MEDS: METHYLPREDNISOLONE SOD SUCC PF 40 MG/ML VIAL IVP ×2 (15:03→23:20)
[2024-08-07] MEDS: METRONIDAZOLE/SODIUM CHLORIDE 500 MG/100 ML PREMIX 100 MG IV ×2 (15:05→23:20)
[2024-08-07 15:44] LABS: C. Difficile PCR NEGATIVE
[2024-08-07] MEDS: CIPROFLOXACIN IN 5 % DEXTROSE 400 MG/200 ML PREMIX 200 MG IV (16:14)
[2024-08-07] MEDS: MORPHINE SULFATE 2 MG/ML SYRINGE IV ×2 (17:43→22:47)
[2024-08-07] MEDS: OXYCODONE HCL 5 MG TABLET PO (20:12)
[2024-08-07] MEDS: DIPHENHYDRAMINE HCL 25 MG CAPSULE PO (21:40)
[2024-08-08] VITALS (8 sets, daily range): BP systolic 88–97; BP diastolic 51–68; PULSE 72–81; TEMP 36.5–36.8; O2SAT 4–99
[2024-08-08] MEDS: OXYCODONE HCL 5 MG TABLET PO ×4 (02:23→23:02)
[2024-08-08] MEDS: MORPHINE SULFATE 2 MG/ML SYRINGE IV ×5 (03:51→21:11)
[2024-08-08] MEDS: CIPROFLOXACIN IN 5 % DEXTROSE 400 MG/200 ML PREMIX 200 MG IV ×2 (03:52→15:32)
[2024-08-08] MEDS: ONDANSETRON PF 4 MG/2 ML VIAL IV (03:52)
[2024-08-08] MEDS: METRONIDAZOLE/SODIUM CHLORIDE 500 MG/100 ML PREMIX 100 MG IV ×3 (06:47→22:06)
[2024-08-08] MEDS: METHYLPREDNISOLONE SOD SUCC PF 40 MG/ML VIAL IVP ×3 (06:47→22:06)
[2024-08-08 07:06] LABS: Basophils Percent Auto 0.2 % (0.2-2.0); Hematocrit 24.1 % (36.0-48.0); Hemoglobin 7.6 g/dL (12.0-16.0); Immature Granulocytes Abs Auto 0.04 10^3/uL (0.00-0.03); Immature Granulocytes Pct Auto 0.5 % (0.0-0.5); Lymphocytes Absolute Auto 1.3 10^3/uL (1.2-3.8); Lymphocytes Percent Auto 16.4 % (20.5-60.0); Mean Corpuscular HGB Conc 31.5 g/dL (29.9-35.2); Mean Corpuscular Hemoglobin 24.7 pg (26.7-34.0); Mean Corpuscular Volume 78.2 fL (81.0-99.0); Monocytes Absolute Auto 0.2 10^3/uL (0.3-0.8); Monocytes Percent Auto 2.5 % (1.7-12.0); Neutrophils Absolute Auto 6.6 10^3/uL (1.4-6.5); Neutrophils Percent Auto 80.4 % (43.0-75.0); Platelet Count 211 10^3/uL (150-450); Red Blood Count 3.08 10^6/uL (4.20-5.40); White Blood Count 8.2 10^3/uL (4.0-11.0)
[2024-08-08 07:32] LABS: Alanine Aminotransferase <6 U/L (14-59); Albumin Globulin Ratio 0.6; Albumin Level 1.6 g/dL (3.4-5.0); Alkaline Phosphatase 28 U/L (46-116); Anion Gap 10.9; Aspartate Amino Transferase 10 U/L (15-37); BUN Creatinine Ratio 3.9; Bilirubin Total 0.3 mg/dL (0.2-1.0); Calcium 7.6 mg/dL (8.5-10.1); Carbon Dioxide 29.6 mmol/L (21.0-32.0); Chloride 100 mmol/L (98-107); Estimated GFR (African America >60 (>=60 mL/min/1.73m^2); Estimated GFR (Non-African Ame >60 (>=60 mL/min/1.73m^2); Globulin 2.9 g/dL; Glucose 175 mg/dL (74-106); Potassium 3.5 mmol/L (3.5-5.1); Sodium 137 mmol/L (136-145); Total Protein 4.5 g/dL (6.4-8.2)
[2024-08-08] MEDS: POTASSIUM CHLORIDE 10 MEQ ER TABLET 40 MEQ PO (09:27)
--- NOTE | 2024-08-08 10:29 | P.IMPN_ITS ---
Progress Note: A&P Assessment and Plan (1) Exacerbation of Crohn's disease: Qualifiers: Digestive disease complication type: with rectal bleeding Qualified Code(s): K50.911 - Crohn's disease, unspecified, with rectal bleeding (2) Abdominal pain: Qualifiers: Abdominal location: generalized Qualified Code(s): R10.84 - Generalized abdominal pain (3) Nausea and vomiting: Qualifiers: Vomiting type: unspecified Qualified Code(s): R11.2 - Nausea with vomiting, unspecified (4) Rectal bleeding: (5) Anemia due to blood loss: Plan Patient continues to have multiple bowel movements along with rectal bleeding. She reports more than 5 bowel movements within past 24 hours. She continues to feel nauseous, poor appetite. No vomiting. Her pain is persistent requiring combination of p.o. and IV narcotics. Continue with IV hydration. Continue with Solu-Medrol along with Cipro Flagyl. Advance diet as tolerated. Her hemoglobin earlier today was 7.6 likely because of blood loss. Repeat H&H at 12 and if low , will order transfusion to keep hemoglobin above 7. Patient needs continued inpatient treatment/monitoring for her Crohn's flareup as she continues to have multiple bowel movements with bleeding and will need transfusion if her hemoglobin falls below 7. Patient was initially admitted for observation but we will change her to inpatient because of failing to improve after 24 hours of observation despite treatment with IV steroids, IV antibiotic. Still waiting for transfer to [facility]. Internal Medicine - PN: Subj Subjective Interval history: Seen and examined. Patient reports anorexia, nausea. No episodes of vomiting. She had more than 5 bowel movements with bright red blood in it. Her abdominal pain is persistent, unchanged from yesterday when she was admitted. No fever. Anemia with hemoglobin of 7.5 noted which is a considerable drop from her baseline hemoglobin of 10-11. No improvement overall despite initial period of observation for 24 hours, treatment with IV steroids, abx. Exam Constitutional Vital Signs, click to edit/add: Last Vital Signs Temp 97.7 F 08/08/24 07:44 Pulse 72 08/08/24 07:46 Resp 16 08/08/24 07:46 BP 93/57 08/08/24 07:44 Pulse Ox 95 08/08/24 07:44 O2 Del Method Room Air 08/08/24 07:44 Documenting provider has reviewed patient's vital signs: yes Common normals: oriented x3 General appearance: cooperative and ill appearing Nutritional appearance: underweight HENMT Common normals: normocephalic and head/scalp atraumatic Head and scalp: normocephalic and atraumatic Eye Common normals: conjunctivae normal and no scleral icterus Conjunctiva: conjunctiva(e) normal Respiratory Common normals: normal respiratory effort and clear to auscultation bilaterally Effort & inspection: able to speak in complete sentences Auscultation: clear to auscultation bilaterally Cardio Common normals: regular rate, S1 normal heart sound and S2 normal heart sound Rate: regular rate Heart sounds: S1 normal and S2 normal GI Common normals: Normal to inspection, nondistended, normoactive bowel sounds present, no hepatosplenomegaly and no masses Palpation: tender (generalized tenderness ) Other: Well-healed surgical scar in right lower abdomen Extremity Common normals: no clubbing, cyanosis or edema Neuro Common normals: oriented x3, moves all extremities and no focal motor deficits Psych Common normals: mental status grossly normal, denies hallucinations, denies homicidal ideation and denies suicidal ideation Internal Medicine - PN: Obj Da Labs Labs: Laboratory Results - last 24 hr 08/06/24 08/08/24 08/08/24 23:43 06:50 08:02 WBC 8.2 RBC 3.08 L Hgb 7.6 L Hct 24.1 L MCV 78.2 L MCH 24.7 L MCHC 31.5 RDW 15.0 Plt Count 211 MPV 10.0 Neut % (Auto) 80.4 H Lymph % (Auto) 16.4 L [place] % (Auto) 2.5 Eos % (Auto) 0.0 L Baso % (Auto) 0.2 Neut # (Auto) 6.6 H Lymph # (Auto) 1.3 [place] # (Auto) 0.2 L Eos # (Auto) 0.0 Baso # (Auto) 0.0 Abs Immat Gran (auto) 0.04 H Imm/Tot Granulo (auto) 0.5 Sodium 137 Potassium 3.5 Chloride 100 Carbon Dioxide 29.6 Anion Gap 10.9 BUN 4.0 L Creatinine 1.03 H Est GFR ( Amer) >60 Est GFR (Non-Af Amer) >60 BUN/Creatinine Ratio 3.9 Glucose 175 H Calcium 7.6 L Total Bilirubin 0.3 AST 10 L ALT <6 L Alkaline Phosphatase 28 L Total Protein 4.5 L Albumin 1.6 L Globulin 2.9 Albumin/Globulin Ratio 0.6 C. difficile Toxin PCR Negative Blood Type A Positive Antibody Screen Negative
[2024-08-08] MEDS: DIPHENHYDRAMINE HCL 50 MG/ML VIAL 12.5 MG IV ×3 (10:43→23:02)
--- NOTE | 2024-08-08 11:11 | CM.NOTE ---
Rounds made with Dr. Mondragon. Dr. Mondragon discussed diagnostic tests and treatment plan. Discussed low hgb and that will recheck later today and may require blood transfusion. Renee verbalized understanding. Plan is for transfer to [facility], currently there is no bed available. Renee with continued pain and bloody diarrhea will change to Inpatient status.
[2024-08-08] MEDS: LACTATED RINGER'S SOLUTION 1,000 ML 125 ML IV ×2 (11:52→20:26)
[2024-08-08 13:21] LABS: Hematocrit 24.5 % (36.0-48.0); Hemoglobin 7.7 g/dL (12.0-16.0)
[2024-08-08] MEDS: OMEPRAZOLE 40 MG CAPSULE.DR PO (14:22)
[2024-08-09] VITALS (10 sets, daily range): BP systolic 98–117; BP diastolic 62–83; PULSE 60–79; TEMP 36.4–36.8; O2SAT 94–100
[2024-08-09] MEDS: MORPHINE SULFATE 2 MG/ML SYRINGE IV ×2 (02:07→08:18)
[2024-08-09 03:07] LABS: Calprotectin, Fecal 3190 ug/g (0-120)
[2024-08-09] MEDS: CIPROFLOXACIN IN 5 % DEXTROSE 400 MG/200 ML PREMIX 200 MG IV ×2 (04:04→16:03)
[2024-08-09] MEDS: DIPHENHYDRAMINE HCL 50 MG/ML VIAL 12.5 MG IV ×2 (06:05→17:51)
[2024-08-09] MEDS: METHYLPREDNISOLONE SOD SUCC PF 40 MG/ML VIAL IVP ×3 (06:06→22:14)
[2024-08-09] MEDS: LACTATED RINGER'S SOLUTION 1,000 ML 125 ML IV (06:06)
[2024-08-09] MEDS: OXYCODONE HCL 5 MG TABLET PO ×3 (06:06→17:52)
[2024-08-09] MEDS: METRONIDAZOLE/SODIUM CHLORIDE 500 MG/100 ML PREMIX 100 MG IV ×3 (06:06→22:14)
[2024-08-09] MEDS: OMEPRAZOLE 40 MG CAPSULE.DR PO (06:06)
[2024-08-09 06:35] LABS: Basophils Percent Auto 0.2 % (0.2-2.0); Hemoglobin 7.2 g/dL (12.0-16.0); Immature Granulocytes Abs Auto 0.09 10^3/uL (0.00-0.03); Immature Granulocytes Pct Auto 0.7 % (0.0-0.5); Lymphocytes Percent Auto 15.4 % (20.5-60.0); Mean Corpuscular HGB Conc 31.3 g/dL (29.9-35.2); Mean Corpuscular Hemoglobin 25.3 pg (26.7-34.0); Mean Corpuscular Volume 80.7 fL (81.0-99.0); Mean Platelet Volume 9.9 fL (9.5-13.5); Monocytes Absolute Auto 0.6 10^3/uL (0.3-0.8); Monocytes Percent Auto 4.4 % (1.7-12.0); Neutrophils Absolute Auto 10.4 10^3/uL (1.4-6.5); Neutrophils Percent Auto 79.3 % (43.0-75.0); Platelet Count 223 10^3/uL (150-450); Red Blood Count 2.85 10^6/uL (4.20-5.40); Red Cell Distribution Width 15.1 % (11.0-15.0); White Blood Count 13.1 10^3/uL (4.0-11.0)
[2024-08-09 06:52] LABS: Alanine Aminotransferase 7 U/L (14-59); Albumin Globulin Ratio 0.5; Albumin Level 1.5 g/dL (3.4-5.0); Alkaline Phosphatase 35 U/L (46-116); Anion Gap 7.4; Aspartate Amino Transferase 6 U/L (15-37); Bilirubin Total 0.1 mg/dL (0.2-1.0); Calcium 7.3 mg/dL (8.5-10.1); Carbon Dioxide 27.7 mmol/L (21.0-32.0); Chloride 106 mmol/L (98-107); Estimated GFR (African America >60 (>=60 mL/min/1.73m^2); Estimated GFR (Non-African Ame >60 (>=60 mL/min/1.73m^2); Glucose 249 mg/dL (74-106); Potassium 4.1 mmol/L (3.5-5.1); Sodium 137 mmol/L (136-145); Total Protein 4.5 g/dL (6.4-8.2)
--- NOTE | 2024-08-09 10:02 | CM.NOTE ---
Rounds made with Dr. Mondragon, pt continues with abdominal pain. Pt does states the pain has improved and BM have slowed down since admission. Pt still not back to baseline. Pt will require 1 unit PRBC's today. No bed availability at [facility].
--- NOTE | 2024-08-09 10:58 | P.IMPN_ITS ---
Progress Note: A&P Assessment and Plan (1) Exacerbation of Crohn's disease: Qualifiers: Digestive disease complication type: with rectal bleeding Qualified Code(s): K50.911 - Crohn's disease, unspecified, with rectal bleeding (2) Abdominal pain: Qualifiers: Abdominal location: generalized Qualified Code(s): R10.84 - Generalized abdominal pain (3) Nausea and vomiting: Qualifiers: Vomiting type: unspecified Qualified Code(s): R11.2 - Nausea with vomiting, unspecified (4) Rectal bleeding: (5) Anemia due to blood loss: Plan Patient gradually improving clinically with improvement in nausea and is now tolerating p.o. diet. She continues to have multiple bowel movements with rectal bleeding but overall subjectively feels better. Hemoglobin earlier today was 7.2. Ordered 1 unit of packed red blood cell transfusion. Repeat H&H at 4 PM. Discontinue IV fluids and IV narcotics. Continue with p.o. oxycodone as needed for pain. Continue with Solu-Medrol along with Cipro Flagyl. Patient needs continued inpatient treatment/monitoring for her Crohn's flareup as she continues to have multiple bowel movements with bleeding. She will also need monitoring of her hemoglobin after transfusion. Still waiting for transfer to [facility]. Internal Medicine - PN: Subj Subjective Interval history: Seen and examined. Patient denies nausea, vomiting. Still has about 5-7 bowel movements. She was still noticing blood in her stool but it has improved considerably from admission. Her abdominal pain is persistent but gradually improving. Her hemoglobin on morning labs was 7.2. Ordered 1 unit packed red blood cell transfusion. Patient is tolerating p.o. diet. Exam Constitutional Vital Signs, click to edit/add: Last Vital Signs Temp 97.8 F 08/09/24 04:32 Pulse 69 08/09/24 04:32 Resp 12 08/09/24 04:32 BP 98/63 08/09/24 04:32 Pulse Ox 94 L 08/09/24 04:32 O2 Del Method Room Air 08/09/24 04:32 Documenting provider has reviewed patient's vital signs: yes Common normals: oriented x3 General appearance: cooperative and ill appearing Nutritional appearance: underweight Respiratory Common normals: normal respiratory effort and clear to auscultation bilaterally Effort & inspection: able to speak in complete sentences Auscultation: clear to auscultation bilaterally Cardio Common normals: regular rate, S1 normal heart sound and S2 normal heart sound Rate: regular rate Heart sounds: S1 normal and S2 normal GI Common normals: Normal to inspection, nondistended, normoactive bowel sounds present, no hepatosplenomegaly and no masses Palpation: tender (generalized tenderness ) Other: Well-healed surgical scar in right lower abdomen Extremity Common normals: no clubbing, cyanosis or edema Neuro Common normals: oriented x3, moves all extremities and no focal motor deficits Psych Common normals: mental status grossly normal, denies hallucinations, denies homicidal ideation and denies suicidal ideation Internal Medicine - PN: Obj Da Labs Labs: Laboratory Results - last 24 hr 08/06/24 08/08/24 08/08/24 23:43 08:02 13:16 WBC RBC Hgb 7.7 L Hct 24.5 L MCV MCH MCHC RDW Plt Count MPV Neut % (Auto) Lymph % (Auto) [place] % (Auto) Eos % (Auto) Baso % (Auto) Neut # (Auto) Lymph # (Auto) [place] # (Auto) Eos # (Auto) Baso # (Auto) Abs Immat Gran (auto) Imm/Tot Granulo (auto) Sodium Potassium Chloride Carbon Dioxide Anion Gap BUN Creatinine Est GFR ( Amer) Est GFR (Non-Af Amer) BUN/Creatinine Ratio Glucose Calcium Total Bilirubin AST ALT Alkaline Phosphatase Total Protein Albumin Globulin Albumin/Globulin Ratio Stool Calprotectin 3190 H Blood Type A Positive Antibody Screen Negative Crossmatch See Detail 08/09/24 06:05 WBC 13.1 H RBC 2.85 L Hgb 7.2 L Hct 23.0 L* MCV 80.7 L MCH 25.3 L MCHC 31.3 RDW 15.1 H Plt Count 223 MPV 9.9 Neut % (Auto) 79.3 H Lymph % (Auto) 15.4 L [place] % (Auto) 4.4 Eos % (Auto) 0.0 L Baso % (Auto) 0.2 Neut # (Auto) 10.4 H Lymph # (Auto) 2.0 [place] # (Auto) 0.6 Eos # (Auto) 0.0 Baso # (Auto) 0.0 Abs Immat Gran (auto) 0.09 H Imm/Tot Granulo (auto) 0.7 H Sodium 137 Potassium 4.1 Chloride 106 Carbon Dioxide 27.7 Anion Gap 7.4 BUN 5.0 L Creatinine 1.01 Est GFR ( Amer) >60 Est GFR (Non-Af Amer) >60 BUN/Creatinine Ratio 5.0 Glucose 249 H Calcium 7.3 L Total Bilirubin 0.1 L AST 6 L ALT 7 L Alkaline Phosphatase 35 L Total Protein 4.5 L Albumin 1.5 L Globulin 3.0 Albumin/Globulin Ratio 0.5 Stool Calprotectin Blood Type Antibody Screen Crossmatch
[2024-08-09] MEDS: DIPHENHYDRAMINE HCL 50 MG/ML VIAL IVP (11:12)
[2024-08-09] MEDS: 0.9 % SODIUM CHLORIDE 250 ML 10 ML IV (14:55)
[2024-08-09 16:04] LABS: Hematocrit 27.8 % (36.0-48.0); Hemoglobin 8.8 g/dL (12.0-16.0)
[2024-08-10] VITALS (7 sets, daily range): BP systolic 95–114; BP diastolic 60–79; PULSE 58–74; TEMP 36.5–36.7; O2SAT 96–99
[2024-08-10] MEDS: OXYCODONE HCL 5 MG TABLET PO ×4 (00:19→19:34)
[2024-08-10] MEDS: DIPHENHYDRAMINE HCL 50 MG/ML VIAL 12.5 MG IV ×4 (00:19→19:33)
[2024-08-10] MEDS: CIPROFLOXACIN IN 5 % DEXTROSE 400 MG/200 ML PREMIX 200 MG IV ×2 (04:26→16:03)
[2024-08-10 05:17] LABS: Hematocrit 27.7 % (36.0-48.0); Hemoglobin 8.6 g/dL (12.0-16.0); Mean Corpuscular Hemoglobin 25.5 pg (26.7-34.0); Mean Corpuscular Volume 82.2 fL (81.0-99.0); Mean Platelet Volume 9.5 fL (9.5-13.5); Platelet Count 275 10^3/uL (150-450); Red Blood Count 3.37 10^6/uL (4.20-5.40); Red Cell Distribution Width 15.6 % (11.0-15.0); White Blood Count 16.2 10^3/uL (4.0-11.0)
[2024-08-10 05:23] LABS: Alanine Aminotransferase 8 U/L (14-59); Albumin Globulin Ratio 0.5; Albumin Level 1.6 g/dL (3.4-5.0); Alkaline Phosphatase 35 U/L (46-116); Anion Gap 8.1; Aspartate Amino Transferase 7 U/L (15-37); Bilirubin Total 0.4 mg/dL (0.2-1.0); Calcium 7.3 mg/dL (8.5-10.1); Carbon Dioxide 25.8 mmol/L (21.0-32.0); Chloride 110 mmol/L (98-107); Estimated GFR (African America >60 (>=60 mL/min/1.73m^2); Estimated GFR (Non-African Ame >60 (>=60 mL/min/1.73m^2); Glucose 227 mg/dL (74-106); Potassium 3.9 mmol/L (3.5-5.1); Sodium 140 mmol/L (136-145); Total Protein 4.6 g/dL (6.4-8.2)
[2024-08-10] MEDS: OMEPRAZOLE 40 MG CAPSULE.DR PO (05:46)
[2024-08-10 06:04] LABS: Band Neutrophils Absolute 0.2 10^3/uL (0.0-0.3); Lymphocytes Absolute Manual 2.43 10^3/uL (1.20-3.80); Monocytes Absolute Manual 0.32 10^3/uL (0.30-0.80); Segmented Neut Absolute Manual 13.28 10^3/uL (1.4-6.5)
[2024-08-10] MEDS: METHYLPREDNISOLONE SOD SUCC PF 40 MG/ML VIAL IVP ×3 (06:06→23:50)
[2024-08-10] MEDS: METRONIDAZOLE/SODIUM CHLORIDE 500 MG/100 ML PREMIX 100 MG IV ×3 (06:06→23:49)
--- NOTE | 2024-08-10 10:57 | CM.NOTE ---
Rounds made with Dr. Mondragon, pt continues with liquid stools. Pt states she continues to have about 10 BM's per day. No discharge today. No bed availability at [facility] today.
--- NOTE | 2024-08-10 11:06 | PM.IMPN1 ---
Progress Note: A&P Assessment and Plan (1) Exacerbation of Crohn's disease: Qualifiers: Digestive disease complication type: with rectal bleeding Qualified Code(s): K50.911 - Crohn's disease, unspecified, with rectal bleeding (2) Abdominal pain: Qualifiers: Abdominal location: generalized Qualified Code(s): R10.84 - Generalized abdominal pain (3) Nausea and vomiting: Qualifiers: Vomiting type: unspecified Qualified Code(s): R11.2 - Nausea with vomiting, unspecified (4) Rectal bleeding: (5) Anemia due to blood loss: Plan Continues to clinically improve and denies nausea, vomiting. She continues to have watery diarrhea and abdominal pain that is overall better but she is still has more than 5 bowel movements per day. She received 1 unit of packed red blood cells on 08/09/2024. Her hemoglobin has since remained stable. Continue with IV Solu-Medrol, Cipro/Flagyl. Continue with supportive care. Awaiting bed availability at [facility]. Continue with current course of treatment and monitoring Internal Medicine - PN: Subj Subjective Interval history: Seen and examined. Gradually improving. Continues to have frequent bowel movements daily but overall consistently is getting less watery Tolerating diet. Denies nausea, vomiting. Abdominal pain is better also.. Exam Constitutional Vital Signs, click to edit/add: Last Vital Signs Temp 97.7 F 08/10/24 08:26 Pulse 58 L 08/10/24 08:26 Resp 16 08/10/24 08:26 BP 97/60 08/10/24 08:26 Pulse Ox 96 08/10/24 08:26 O2 Del Method Room Air 08/10/24 08:26 Documenting provider has reviewed patient's vital signs: yes Common normals: oriented x3 General appearance: cooperative and ill appearing Nutritional appearance: underweight Respiratory Common normals: normal respiratory effort and clear to auscultation bilaterally Effort & inspection: able to speak in complete sentences Auscultation: clear to auscultation bilaterally Cardio Common normals: regular rate, S1 normal heart sound and S2 normal heart sound Rate: regular rate Heart sounds: S1 normal and S2 normal GI Common normals: Normal to inspection, nondistended, normoactive bowel sounds present, no hepatosplenomegaly and no masses Palpation: tender (generalized tenderness ) Other: Well-healed surgical scar in right lower abdomen Extremity Common normals: no clubbing, cyanosis or edema Neuro Common normals: oriented x3, moves all extremities and no focal motor deficits Psych Common normals: mental status grossly normal, denies hallucinations, denies homicidal ideation and denies suicidal ideation Internal Medicine - PN: Obj Da Labs Labs: Laboratory Results - last 24 hr 08/08/24 08/09/24 08/10/24 08:02 15:57 04:30 WBC 16.2 H RBC 3.37 L Hgb 8.8 L 8.6 L Hct 27.8 L 27.7 L MCV 82.2 MCH 25.5 L MCHC 31.0 RDW 15.6 H Plt Count 275 MPV 9.5 Seg Neuts % (Manual) 82.0 H Band Neutrophils % 1.0 Lymphocytes % (Manual) 15.0 L Monocytes % (Manual) 2.0 Eosinophils % (Manual) 0.0 L Basophils % (Manual) 0.0 L Neutrophils # (Manual) 13.28 H Band Neutrophils # 0.2 Lymphocytes # (Manual) 2.43 Monocytes # (Manual) 0.32 Eosinophils # (Manual) 0.00 Basophils # (Manual) 0.00 Sodium 140 Potassium 3.9 Chloride 110 H Carbon Dioxide 25.8 Anion Gap 8.1 BUN 5.0 L Creatinine 1.00 Est GFR ( Amer) >60 Est GFR (Non-Af Amer) >60 BUN/Creatinine Ratio 5.0 Glucose 227 H Calcium 7.3 L Total Bilirubin 0.4 AST 7 L ALT 8 L Alkaline Phosphatase 35 L Total Protein 4.6 L Albumin 1.6 L Globulin 3.0 Albumin/Globulin Ratio 0.5 Blood Type A Positive Antibody Screen Negative Crossmatch See Detail
[2024-08-11] MEDS: DIPHENHYDRAMINE HCL 50 MG/ML VIAL 12.5 MG IV ×2 (01:46→08:12)
[2024-08-11] MEDS: OXYCODONE HCL 5 MG TABLET PO ×2 (01:46→08:12)
[2024-08-11 03:00] VITALS: BP 113/74; PULSE 67; TEMP 36.5; O2SAT 97
[2024-08-11] MEDS: CIPROFLOXACIN IN 5 % DEXTROSE 400 MG/200 ML PREMIX 200 MG IV (04:51)
[2024-08-11 05:24] VITALS: O2SAT 98
[2024-08-11] MEDS: OMEPRAZOLE 40 MG CAPSULE.DR PO (05:59)
[2024-08-11] MEDS: METHYLPREDNISOLONE SOD SUCC PF 40 MG/ML VIAL IVP (06:07)
[2024-08-11] MEDS: METRONIDAZOLE/SODIUM CHLORIDE 500 MG/100 ML PREMIX 100 MG IV (06:07)
[2024-08-11 06:37] LABS: Alanine Aminotransferase <6 U/L (14-59); Albumin Globulin Ratio 0.6; Albumin Level 1.6 g/dL (3.4-5.0); Alkaline Phosphatase 33 U/L (46-116); Anion Gap 9.4; Aspartate Amino Transferase 12 U/L (15-37); Bilirubin Total 0.2 mg/dL (0.2-1.0); Calcium 7.2 mg/dL (8.5-10.1); Carbon Dioxide 24.5 mmol/L (21.0-32.0); Chloride 108 mmol/L (98-107); Estimated GFR (African America >60 (>=60 mL/min/1.73m^2); Estimated GFR (Non-African Ame >60 (>=60 mL/min/1.73m^2); Globulin 2.7 g/dL; Glucose 194 mg/dL (74-106); Potassium 3.9 mmol/L (3.5-5.1); Sodium 138 mmol/L (136-145); Total Protein 4.3 g/dL (6.4-8.2)
[2024-08-11 06:38] LABS: Basophils Percent Auto 0.2 % (0.2-2.0); Eosinophils Percent Auto 0.1 % (0.9-7.0); Hematocrit 26.6 % (36.0-48.0); Hemoglobin 8.2 g/dL (12.0-16.0); Immature Granulocytes Abs Auto 0.39 10^3/uL (0.00-0.03); Immature Granulocytes Pct Auto 2.5 % (0.0-0.5); Lymphocytes Absolute Auto 2.4 10^3/uL (1.2-3.8); Lymphocytes Percent Auto 15.7 % (20.5-60.0); Mean Corpuscular HGB Conc 30.8 g/dL (29.9-35.2); Mean Corpuscular Hemoglobin 25.4 pg (26.7-34.0); Mean Corpuscular Volume 82.4 fL (81.0-99.0); Mean Platelet Volume 8.5 fL (9.5-13.5); Monocytes Absolute Auto 0.6 10^3/uL (0.3-0.8); Monocytes Percent Auto 3.8 % (1.7-12.0); Neutrophils Absolute Auto 11.9 10^3/uL (1.4-6.5); Neutrophils Percent Auto 77.7 % (43.0-75.0); Platelet Count 225 10^3/uL (150-450); Red Blood Count 3.23 10^6/uL (4.20-5.40); Red Cell Distribution Width 16.5 % (11.0-15.0); White Blood Count 15.3 10^3/uL (4.0-11.0)
[2024-08-11 09:02] VITALS: BP 103/63; PULSE 60; TEMP 36.5; O2SAT 98
--- NOTE | 2024-08-11 10:19 | P.DS_ITS ---
DS: Providers Provider Date of admission: 08/08/24 10:05 Primary care physician: [facility] Admitting clinician: Shaikh Giancarlo Attending physician on admission: Shaikh Giancarlo Consults: 08/07/24 Consult to Dietitian Routine Reason for consultation: 20 lb weight loss in the last few weeks Has provider been notified: Yes Attending physician on discharge: Shaikh Giancarlo Discharging clinician: Shaikh Giancarlo Anticipated date of discharge: 08/11/24 DS: Diagnosis Discharge Diagnosis (1) Exacerbation of Crohn's disease: Qualifiers: Digestive disease complication type: with rectal bleeding Qualified Code(s): K50.911 - Crohn's disease, unspecified, with rectal bleeding (2) Abdominal pain: Qualifiers: Abdominal location: generalized Qualified Code(s): R10.84 - Generalized abdominal pain (3) Nausea and vomiting: Qualifiers: Vomiting type: unspecified Qualified Code(s): R11.2 - Nausea with vomiting, unspecified (4) Rectal bleeding: (5) Anemia due to blood loss: DS: Summary Hospital Course Hospital Course: 23-year-old female with history of Crohn's disease presented to ER with 2-day history of nausea, vomiting, abdominal pain with diarrhea. He reported 5-10 large bowel movements with fresh red blood in it. She was also complaining of intractable nausea and vomiting and inability to eat for past 2 days along with severe abdominal pain that was generalized and all over. Patient's workup was consistent with Crohn's flareup. Since we do not have GI, transfer request was initiated and patient was accepted for transfer to [facility]. However due to unavailability of beds, she was admitted to our facility and started on IV Solu-Medrol and empirical Cipro/Flagyl. She was also started on IV fluids along with antiemetics as needed. Patient continued to have large quantities of watery diarrhea with blood along with abdominal pain with gradual improvement in her symptoms and today she reported only 2 bowel movements in past 12 hours. Her diet was advanced on second day of admission and she has been tolerating regular diet without nausea or vomiting. She has been intermittently needing oral narcotics for pain but otherwise her pain is reasonably well-controlled. Of note, patient needed 1 unit of packed red blood cell transfusion for hemoglobin of 7.2. Her baseline hemoglobin is about 9. While awaiting transfer to [facility], she has improved considerably and sufficiently that she can be discharged home and can follow-up with GI in 1 to 2 weeks. She will be discharged on oral ciprofloxacin/Flagyl along with prednisone taper and Zofran as needed for nausea and vomiting. I will send her home on a few days of oral oxycodone as needed for abdominal pain. Patient was educated on worrisome signs and symptoms and was instructed to return to ED if she develop intractable nausea, vomiting, abdominal pain or diarrhea. Patient was also instructed to follow-up with PCP in 1 to 2 weeks. Status at Discharge Functional status at discharge: independent ambulation Overall status at discharge: patient is back to baseline Time Spent with Patient Time attestation: Total time spent providing and/or coordinating discharge services: Time spent: greater than 30 minutes Exam Constitutional Vital Signs, click to edit/add: Last Vital Signs Temp 97.7 F 08/11/24 09:02 Pulse 60 08/11/24 09:02 Resp 18 08/11/24 09:02 BP 103/63 08/11/24 09:02 Pulse Ox 98 08/11/24 09:02 O2 Del Method Room Air 08/11/24 09:02 Documenting provider has reviewed patient's vital signs: yes Common normals: oriented x3 General appearance: cooperative Nutritional appearance: underweight Respiratory Common normals: normal respiratory effort and clear to auscultation bilaterally Effort & inspection: able to speak in complete sentences Auscultation: clear to auscultation bilaterally Cardio Common normals: regular rate, S1 normal heart sound and S2 normal heart sound Rate: regular rate Heart sounds: S1 normal and S2 normal GI Common normals: Normal to inspection, nondistended, normoactive bowel sounds present, no hepatosplenomegaly and no masses Other: Well-healed surgical scar in right lower abdomen Extremity Common normals: no clubbing, cyanosis or edema Neuro Common normals: oriented x3, moves all extremities and no focal motor deficits Psych Common normals: mental status grossly normal, denies hallucinations, denies homicidal ideation and denies suicidal ideation DS: Data Data Completed and Pending Labs on day of discharge: Labs from last 24 hours 08/11/24 08/11/24 08/08/24 06:31 06:12 08:02 WBC 15.3 H RBC 3.23 L Hgb 8.2 L Hct 26.6 L MCV 82.4 MCH 25.4 L MCHC 30.8 RDW 16.5 H Plt Count 225 MPV 8.5 L Neut % (Auto) 77.7 H Lymph % (Auto) 15.7 L [place] % (Auto) 3.8 Eos % (Auto) 0.1 L Baso % (Auto) 0.2 Neut # (Auto) 11.9 H Lymph # (Auto) 2.4 [place] # (Auto) 0.6 Eos # (Auto) 0.0 Baso # (Auto) 0.0 Abs Immat Gran (auto) 0.39 H Imm/Tot Granulo (auto) 2.5 H Sodium 138 Potassium 3.9 Chloride 108 H Carbon Dioxide 24.5 Anion Gap 9.4 BUN 5.0 L Creatinine 1.01 Est GFR ( Amer) >60 Est GFR (Non-Af Amer) >60 BUN/Creatinine Ratio 5.0 Glucose 194 H Calcium 7.2 L Total Bilirubin 0.2 AST 12 L ALT <6 L Alkaline Phosphatase 33 L Total Protein 4.3 L Albumin 1.6 L Globulin 2.7 Albumin/Globulin Ratio 0.6 Crossmatch See Detail Discharge Plan Discharge Disposition: Home, Self-Care Condition: Fair Discharge Medications: New ondansetron 4 mg tablet,disintegrating 4 mg PO Q6H PRN (Reason: nausea and vomiting) 3 Days Qty: 10 0RF oxycodone 5 mg tablet 5 mg PO Q6H PRN (Reason: pain) 3 Days Qty: 10 0RF ciprofloxacin HCl 500 mg tablet 500 mg PO BID Qty: 10 0RF metronidazole 500 mg tablet 500 mg PO BID Qty: 10 0RF prednisone 20 mg tablet 20 mg PO DAILY Qty: 20 0RF Rx Instructions: 3 tabs x 3 days, 2 tabs x 3 days, 1 tab x 3 days, 1/2 tab for 4 days Activity: increase activity as tolerated Diet: advance to your usual diet Print Language: Tajik Forms: Portal Instructions Follow Up Appointments: F/u with PCP in one week F/.u with GI in 2 weeks
[2024-08-11] MEDS: HEPARIN SODIUM (PORCINE) PF LOCK FLUSH 500 UNIT/5 ML SYRINGE IV (11:40)
--- NOTE | 2024-08-14 14:32 | CM.DCFOLLOWU ---
Person spoke with: Renee How are you feeling? Much better How is your pain? No pain Did you understand your discharge instructions? Yes Do you have any questions about your discharge instructions? No Were you given any prescriptions at discharge? Yes Were you able to get your prescriptions filled? Yes Do you understand how to take your medications as ordered? Yes Do you have any questions about your follow up appointment and do you plan to keep your follow up appointment? No I am calling to schedule today Is there anything else that you would like to discuss? No Questions/Comments/Concerns/Other:
== END 2024-08-11 12:14 | disposition home or self-care (01) | DRG 245 ==
LOC: ER 08-07 01:37 → MS 08-07 16:18
PROVIDERS: Emergency Medicine; Admitting Provider Internal Medicine; Emergency Provider Emergency Medicine; Visit Provider Internal Medicine
DX: K50.911 Crohn's disease, unspecified, with rectal bleeding (principal); R10.84 Generalized abdominal pain; R11.2 Nausea with vomiting, unspecified; F41.9 Anxiety disorder, unspecified; Z79.899 Other long term (current) drug therapy; Z79.52 Long term (current) use of systemic steroids; D50.0 Iron deficiency anemia secondary to blood loss (chronic); R63.0 Anorexia; R63.6 Underweight; Z68.1 Body mass index [BMI] 19.9 or less, adult
CPT/HCPCS: 36415; 36430; 36591; 36592; 74177; 80053; 80076; 81001; 83690; 83993; 84703; 85007; 85014; 85018; 85025; 85027; 86850; 86900; 86901; 86923; 87045; 87046; 87086; 87427; 87493; 94761; 96361; 96365; 96366; 96367; 96368; 96375; 96376; 99285; G0378; J0744; J1200; J1642; J1836; J2270; J2405; J2919; P9016; Q9967

== ENCOUNTER 2024-08-29 18:21 | Inpatient (IN) | payer OTHER, SELFPAY ==
[2024-08-29] VITALS (30 sets, daily range): BP systolic 95–141; BP diastolic 72–93; PULSE 97–111; TEMP 36.6–37; O2SAT 84–100; BMI 18.3; BMI 18.6
--- NOTE | 2024-08-29 18:46 | ED_ITS ---
HPI HPI - General Adult General Chief complaint: Abdominal Pain Stated complaint: SOB, BOWEL MOVEMENT BLOOD Time Seen by Provider: 08/29/24 18:32 Mode of arrival: walk-in History of Present Illness HPI narrative: The patient is a 23-year-old female with a history of Crohn's disease. The patient is presenting to the emergency department today for abdominal pain. Duration of symptoms has been for 5 days. Attempting to eat or drink makes it worse. Nothing makes it better. It is associated with nausea. She is also having diarrhea stools and then developed blood over the last 2 days. Patient is also short of breath. She did notes last time that she was severely anemic and needed a blood transfusion and that is what they attributed her shortness of breath to. Patient denies any history of tobacco abuse, vaping, or asthma. P atient denies any fever or chills. No cough, cold, flulike symptoms. No known sick contacts or recent travel. Patient is a patient of the [facility]. Patient actually had a colostomy for several years and then recently had a reversal at the end of 2023. Patient states that she is going to inquire about getting her ostomy placed again as she stated that she was less symptomatic there. Patient takes Intivio every 4 weeks. Her last dose was August 27. Patient stated that she spoke to her GI team at the [facility] on Tuesday and they instructed her to monitor her symptoms but to come to the emergency department if her symptoms worsen or change. Patient states she is unable to tolerate the nausea, abdominal pain and now there is blood in her stool so she wanted to present for evaluation. She admits that she came to the emergency department last month for the same. She that time was much worse off than she has now. She states that she got better before needing to be transferred to the [facility]. Patient states that she is compliant with all of her medications. She states that she does not have any dietary indiscretions. Related Data Previous Rx's ?Medication ?Instructions ?Recorded ciprofloxacin HCl 500 mg tablet 500 mg PO BID #10 tabs 08/11/24 metronidazole 500 mg tablet 500 mg PO BID #10 tabs 08/11/24 ondansetron 4 mg disintegrating 4 mg PO Q6H PRN nausea and 08/11/24 tablet vomiting 3 days #10 tabs oxycodone 5 mg tablet 5 mg PO Q6H PRN pain 3 days #10 08/11/24 tabs prednisone 20 mg tablet 20 mg PO DAILY #20 tabs 08/11/24 Allergies Allergy/AdvReac Type Severity Reaction Status Date / Time adhesive Allergy Intermediate Blister Verified 08/07/24 15:01 iron Allergy Intermediate Hives Verified 04/03/24 21:14 ketorolac (From Toradol) Allergy Intermediate hives Verified 04/03/24 21:14 Penicillins Allergy Intermediate Hives Verified 04/03/24 21:14 vancomycin Allergy Intermediate Hives Verified 04/03/24 21:14 tramadol AdvReac Intermediate JAW Verified 08/07/24 15:01 CLENCHING Opioid HPI Opioid Management Most Recent Opioid Data: Last Pain Scale 9 08/29/24 22:50 08/29/24 Last ORT Total Score 13 08/07/24 12:47 08/07/24 Last ORT Risk Category High Risk 08/07/24 12:47 08/07/24 Review of Systems ROS Narrative 10 Systems were reviewed, and unless not ed in the HPI, all other systems are reviewed, unremarkable, or noncontributory. 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) Rectal bleeding ?K62.5 - Hemorrhage of anus and rectum (ICD-10) Exacerbation of Crohn's disease ?K50.90 - Crohn's disease, unspecified, without complications (ICD-10) Abdominal pain ?R10.9 - Unspecified abdominal pain (ICD-10) Nausea and vomiting ?R11.2 - Nausea with vomiting, unspecified (ICD-10) Diarrhea ?R19.7 - Diarrhea, unspecified (ICD-10) Anxiety ?F41.9 - Anxiety disorder, unspecified (ICD-10) IBS (irritable bowel syndrome) ?K58.9 - Irritable bowel syndrome, unspecified (ICD-10) Crohn disease ?K50.90 - Crohn's disease, unspecified, without complications (ICD-10) Surgical History History of colostomy reversal ?Z98.890 - Other specified postprocedural states (ICD-10) History of colon resection ?Z90.49 - Acquired absence of other specified parts of digestive tract (ICD- 10) Social History Highest level of school completed/degree received: high school graduate Little interest or pleasure in doing things: not at all Feeling down, depressed, or hopeless: not at all Exam Narrative Exam Narrative: Prior to examining the patient, I have washed with hospital approved and provided Antiseptic Hand Obstetrics/Gynecology Nurse and have also applied gloves.? Prior to touching the patient, I asked for consent to examine the patient.? General: Alert and oriented, well nourished, mild distress. Eye: PERRL, EOMI, normal conjunctiva. HENT: Normocephalic, normal hearing, moist oral mucosa, no scleral icterus Neck: Supple, non-tender, no carotid bruits, no JVD, no lymphadenopathy. Lungs: Clear to auscultation and percussion, non-labored respiration. No rhonchi, rales, wheezing Heart: Normal rate, regular rhythm, no murmur, gallop or edema. Abdomen: Soft, diffusely tender without any guarding or rebound. No peritoneal signs. It is nondistended and no sounds, normal bowel sounds, no masses. RN saw the patient's stool when she collected the stool sample and there was some blood streaks present. Musculoskeletal: Normal range of motion and strength, no tenderness or swelling. Skin: Skin is warm, dry and pink, no rashes or lesions. Pale in color Neurologic: Awake, alert, and oriented X3, CN II-XII intact. Psychiatric: Cooperative, appropriate mood and affect.? Following the conclusion of the examination, I have washed my hands thoroughly after removing examination gloves. Constitutional Vital Signs, click to edit/add: Last Vital Signs Temp 98.6 F 08/29/24 20:06 Pulse 104 H 08/29/24 20:06 Resp 18 08/29/24 20:06 BP 117/85 08/29/24 23:30 Pulse Ox 100 08/29/24 23:30 O2 Del Method Room Air 08/29/24 18:24 Course Course Hospital Course: The patient is a 23-year-old female with a history of Crohn's disease. She is presenting today for abdominal pain and diarrhea stools with blood. Patient states that her pain is about an 8 out of 10. When she was here last month it was about a 10 out of 10. Patient states that she had an ostomy reversal in 2023 and that since then she started to have flares more frequently again. The patient indicates that she is on an immune modulating agent. She states despite being compliant and having had her last dose 3 days ago she is still having symptoms. The patient states that she is not pain and having baseline itching from medications and nausea. While in the emergency department she had numerous doses of IV narcotic analgesia, IV antiemetic and IV Benadryl. When the patient originally arrived she was also complaining of shortness of breath. Last time the patient had evidence of blood loss anemia so severe she required 1 unit of blood. Her baseline hemoglobin is 9. Today it is 10.4. Patient's oxygen saturation, respiratory rate, heart rate, and blood pressure are all within normal range. Reevaluation(s) Reevaluation #1: Every time I go into the patient's room she appears comfortable and nontoxic and in no acute distress. He had every time I go into the patient's room she is asking for more Benadryl, more Zofran, and more IV opiate medication. Every time she has got stable vital signs and has been comfortably texting her playing on her phone. Consultations Consultation #1: I spoke with Dr. Young from the [facility]. Dr. Young is an internal medicine physician who is covering for gastroenterology. I reviewed the entire case with her. She was reviewing the case from her and his she was familiarizing herself with the patient. She stated that the patient is currently on Intrivio. She said her last virtual visit with her physician was about a month ago. At that time she had had a CT scan of the abdomen pelvis around the same time. The patient stated her pain today is not nearly as bad as it was a month ago when she was here. She stated that everything had been looking good for the patient and she did not feel inclined to have her sent up to [facility] emergently. She stated however if her stool studies came back abnormal that they could certainly call and consult with a broke beater operator up there and that they may facilitate transfer at that time. Time: 22:20 Consultation #2: Spoke with nurse practitioner Ruth who did agree to accept the patient in admission. Time: 22:40 Vital Signs Vital signs: Vital Signs Temperature 97.9 F 08/29/24 18:24 Pulse Rate 111 H 08/29/24 18:24 Respiratory Rate 20 08/29/24 18:24 Blood Pressure 141/93 H 08/29/24 18:24 Pulse Oximetry 99 08/29/24 18:24 Oxygen Delivery Method Room Air 08/29/24 18:24 Temperature 98.6 F 08/29/24 20:06 Pulse Rate 104 H 08/29/24 20:06 Respiratory Rate 18 08/29/24 20:06 Blood Pressure 117/85 08/29/24 23:30 Pulse Oximetry 100 08/29/24 23:30 Oxygen Delivery Method Room Air 08/29/24 18:24 Medical Decision Making Medical Records Medical records reviewed: Yes I reviewed the patient's medical records Medical records narrative: I reviewed the patient's medical records from her previous hospitalization when she saw my colleague on the last admission. At that time, the patient was found to be anemic likely blood loss in nature. Her baseline hemoglobin is 9. She received 1 unit of packed red blood cells. She was admitted to our hospital pending a transfer bed at [facility]. There was per the request of Dr. Medina who is her regular broke beater operator. At that time that patient had a C. difficile culture, stool culture, fecal CalProTectin. She was admitted with IV Solu-Medrol and empiric coverage with Cipro and Flagyl. Lab Data Lab results reviewed: Yes I reviewed the patient's lab results Labs: Lab Results 08/29/24 08/29/24 Range/Units 19:20 21:15 WBC 9.2 (4.0-11.0) 10^3/uL RBC 4.02 L (4.20-5.40) 10^6/uL Hgb 10.4 L (12.0-16.0) g/dL Hct 32.4 L (36.0-48.0) % MCV 80.6 L (81.0-99.0) fL MCH 25.9 L (26.7-34.0) pg MCHC 32.1 (29.9-35.2) g/dL RDW 17.4 H (11.0-15.0) % Plt Count 208 (150-450) 10^3/uL MPV 9.5 (9.5-13.5) fL Neut % (Auto) 62.5 (43.0-75.0) % Lymph % (Auto) 27.9 (20.5-60.0) % [place] % (Auto) 7.0 (1.7-12.0) % Eos % (Auto) 2.0 (0.9-7.0) % Baso % (Auto) 0.4 (0.2-2.0) % Neut # (Auto) 5.8 (1.4-6.5) 10^3/uL Lymph # (Auto) 2.6 (1.2-3.8) 10^3/uL [place] # (Auto) 0.7 (0.3-0.8) 10^3/uL Eos # (Auto) 0.2 (0.0-0.7) 10^3/uL Baso # (Auto) 0.0 (0.0-0.1) 10^3/uL Abs Immat Gran (auto) 0.02 (0.00-0.03) 10^3/uL Imm/Tot Granulo (auto) 0.2 (0.0-0.5) % Sodium 132 L (136-145) mmol/L Potassium 4.0 (3.5-5.1) mmol/L Chloride 98 (98-107) mmol/L Carbon Dioxide 28.0 (21.0-32.0) mmol/L Anion Gap 10.0 BUN 6.0 L (7.0-18.0) mg/dL Creatinine 0.94 (0.55-1.02) mg/dL Est GFR ( Amer) >60 (>=60 mL/min/1.73m^2) Est GFR (Non-Af Amer) >60 (>=60 mL/min/1.73m^2) BUN/Creatinine Ratio 6.4 Glucose 77 (74-106) mg/dL Lactate 0.9 (0.4-2.0) mmol/L Calcium 7.8 L (8.5-10.1) mg/dL Total Bilirubin 0.6 (0.2-1.0) mg/dL AST 104 H (15-37) U/L ALT 39 (14-59) U/L Alkaline Phosphatase 86 (46-116) U/L C-Reactive Protein <0.50 (<=0.50) mg/dL Total Protein 5.5 L (6.4-8.2) g/dL Albumin 2.0 L (3.4-5.0) g/dL Globulin 3.5 g/dL Albumin/Globulin Ratio 0.6 Serum HCG, Qual Negative (NEGATIVE) C. difficile Toxin PCR Negative Blood Type A Positive Antibody Screen Negative The patient has no evidence of leukocytosis. The patient is anemic. But her baseline hemoglobin is 9 and today it is 10.4. She has no evidence of any acute kidney injury. Her lactate is normal. Calcium was low at 7.8 but was supplem ented. Patient's AST is isolated and elevated from baseline but I do not have an etiology for this and nothing is consistent with the remaining liver enzymes. Her C-reactive protein is less than 0.5. Her C. difficile toxin is negative. We are currently still waiting for fecal cultures as well as fecal Calprotectin. Imaging Data Abdominal x-ray: Attestation: I have reviewed the pertinent imaging results. Radiologist's impression: Board-certified radiologist interpretation. Impression: 1. Air-fluid levels with features of early partial small bowel obstruction. 2. Findings could be due to underlying distal enteritis. 3. No pneumatosis. 4. No free air. 5. Surgical clips in the right abdomen is related to prior partial bowel resection. 6. Dextroconvex curvature of the thoracolumbar junction Discharge Plan Discharge Chief Complaint: Abdominal Pain Clinical Impression: Crohn's colitis, Lower GI bleed, Hypocalcemia Patient Disposition: Admitted As Inpatient Time of Disposition Decision: 23:28 Condition: Fair
[2024-08-29 19:35] LABS: Basophils Percent Auto 0.4 % (0.2-2.0); Eosinophils Absolute Auto 0.2 10^3/uL (0.0-0.7); Hematocrit 32.4 % (36.0-48.0); Hemoglobin 10.4 g/dL (12.0-16.0); Immature Granulocytes Abs Auto 0.02 10^3/uL (0.00-0.03); Immature Granulocytes Pct Auto 0.2 % (0.0-0.5); Lymphocytes Absolute Auto 2.6 10^3/uL (1.2-3.8); Lymphocytes Percent Auto 27.9 % (20.5-60.0); Mean Corpuscular HGB Conc 32.1 g/dL (29.9-35.2); Mean Corpuscular Hemoglobin 25.9 pg (26.7-34.0); Mean Corpuscular Volume 80.6 fL (81.0-99.0); Mean Platelet Volume 9.5 fL (9.5-13.5); Monocytes Absolute Auto 0.7 10^3/uL (0.3-0.8); Neutrophils Absolute Auto 5.8 10^3/uL (1.4-6.5); Neutrophils Percent Auto 62.5 % (43.0-75.0); Platelet Count 208 10^3/uL (150-450); Red Blood Count 4.02 10^6/uL (4.20-5.40); Red Cell Distribution Width 17.4 % (11.0-15.0); White Blood Count 9.2 10^3/uL (4.0-11.0)
[2024-08-29] MEDS: DIPHENHYDRAMINE HCL 50 MG/ML VIAL 12.5 MG IVP ×2 (19:42→22:50)
[2024-08-29] MEDS: 0.9 % SODIUM CHLORIDE 1,000 ML 1000 ML IV (19:44)
[2024-08-29] MEDS: METHYLPREDNISOLONE SOD SUCC PF 125 MG/2 ML VIAL IVP (19:47)
[2024-08-29] MEDS: ONDANSETRON PF 4 MG/2 ML VIAL IV ×2 (19:49→22:50)
[2024-08-29] MEDS: MORPHINE SULFATE 4 MG/ML VIAL IV ×2 (19:50→22:50)
[2024-08-29 19:52] LABS: HCG Qualitative NEGATIVE (NEGATIVE); Internal Control Within Normal Limits
[2024-08-29 19:56] LABS: Lactate/Lactic Acid 0.9 mmol/L (0.4-2.0)
[2024-08-29 20:03] LABS: Alanine Aminotransferase 39 U/L (14-59); Albumin Globulin Ratio 0.6; Alkaline Phosphatase 86 U/L (46-116); Aspartate Amino Transferase 104 U/L (15-37); BUN Creatinine Ratio 6.4; Bilirubin Total 0.6 mg/dL (0.2-1.0); C Reactive Protein <0.50 mg/dL (<=0.50); Calcium 7.8 mg/dL (8.5-10.1); Chloride 98 mmol/L (98-107); Estimated GFR (African America >60 (>=60 mL/min/1.73m^2); Estimated GFR (Non-African Ame >60 (>=60 mL/min/1.73m^2); Globulin 3.5 g/dL; Glucose 77 mg/dL (74-106); Sodium 132 mmol/L (136-145); Total Protein 5.5 g/dL (6.4-8.2)
[2024-08-29] MEDS: METRONIDAZOLE/SODIUM CHLORIDE 500 MG/100 ML PREMIX 100 MG IV (20:08)
--- NOTE | 2024-08-29 20:45 | PC.NURSE ---
this patient awake and alert sitting upright on the bed watching something on her cell phone, this patient voices no concerns and shows no signs of distress
[2024-08-29] MEDS: CIPROFLOXACIN IN 5 % DEXTROSE 400 MG/200 ML PREMIX 200 MG IV (21:17)
[2024-08-29] MEDS: CALCIUM GLUCONATE 1,000 MG/10 ML VIAL 1000 MG IVP (21:32)
--- NOTE | 2024-08-29 22:20 | PC.NURSE ---
this patient is complete with her 2nd IV ATB, i also told this patient that her order for pain need to be verify by the pharmacy dept then i will be back with your pain medication
[2024-08-29 23:25] LABS: C. Difficile PCR NEGATIVE
[2024-08-30] VITALS (14 sets, daily range): BP systolic 91–104; BP diastolic 55–71; PULSE 57–107; TEMP 36.3–36.7; O2SAT 96–99
[2024-08-30] MEDS: DEXTROSE 5%-LACTATED RINGERS 1,000 ML 100 ML IV (00:19)
[2024-08-30 00:49] LABS: Bilirubin Urine NEGATIVE (NEGATIVE); Blood Urine NEGATIVE (NEGATIVE); Clarity Urine CLEAR (CLEAR); Color Urine LT. YELLOW (YELLOW); Glucose Urine UA NEGATIVE (NEGATIVE); Ketones Urine NEGATIVE (NEGATIVE); Leukocyte Esterase Urine NEGATIVE (NEGATIVE); Nitrite Urine NEGATIVE (NEGATIVE); Protein Urine NEGATIVE (NEG/TRACE); Urobilinogen Urine 0.2 EU/dL (0.2-1.0)
[2024-08-30 01:01] LABS: Bacteria Urine TRACE #/HPF (NONE SEEN); Cast Seen? NONE SEEN #/LPF (NONE SEEN); Crystals Seen? None Seen #/HPF (None Seen); Mucus Urine NONE SEEN (NONE SEEN); RBC Urine 0-2 #/HPF (0-2); Squamous Epithelial Cell Urine RARE #/LPF (NONE/RARE); WBC Urine 0-2 #/HPF (NONE SEEN)
[2024-08-30] MEDS: MORPHINE SULFATE 2 MG/ML SYRINGE IV ×2 (03:19→07:54)
[2024-08-30] MEDS: METRONIDAZOLE/SODIUM CHLORIDE 500 MG/100 ML PREMIX 100 MG IV ×3 (03:19→20:34)
[2024-08-30 04:50] LABS: Basophils Percent Auto 0.3 % (0.2-2.0); Eosinophils Percent Auto 0.1 % (0.9-7.0); Hematocrit 27.9 % (36.0-48.0); Hemoglobin 8.9 g/dL (12.0-16.0); Immature Granulocytes Abs Auto 0.05 10^3/uL (0.00-0.03); Immature Granulocytes Pct Auto 0.7 % (0.0-0.5); Lymphocytes Absolute Auto 1.6 10^3/uL (1.2-3.8); Lymphocytes Percent Auto 23.5 % (20.5-60.0); Mean Corpuscular HGB Conc 31.9 g/dL (29.9-35.2); Mean Corpuscular Hemoglobin 25.9 pg (26.7-34.0); Mean Corpuscular Volume 81.3 fL (81.0-99.0); Mean Platelet Volume 10.3 fL (9.5-13.5); Monocytes Absolute Auto 0.1 10^3/uL (0.3-0.8); Monocytes Percent Auto 1.9 % (1.7-12.0); Neutrophils Percent Auto 73.5 % (43.0-75.0); Platelet Count 185 10^3/uL (150-450); Red Blood Count 3.43 10^6/uL (4.20-5.40); Red Cell Distribution Width 17.7 % (11.0-15.0); White Blood Count 6.8 10^3/uL (4.0-11.0)
[2024-08-30 05:10] LABS: Alanine Aminotransferase 35 U/L (14-59); Albumin Globulin Ratio 0.5; Albumin Level 1.7 g/dL (3.4-5.0); Alkaline Phosphatase 77 U/L (46-116); Aspartate Amino Transferase 36 U/L (15-37); BUN Creatinine Ratio 4.8; Bilirubin Total 0.3 mg/dL (0.2-1.0); Calcium 7.6 mg/dL (8.5-10.1); Carbon Dioxide 28.6 mmol/L (21.0-32.0); Chloride 101 mmol/L (98-107); Estimated GFR (African America >60 (>=60 mL/min/1.73m^2); Estimated GFR (Non-African Ame >60 (>=60 mL/min/1.73m^2); Globulin 3.1 g/dL; Glucose 260 mg/dL (74-106); Magnesium 1.2 mg/dL (1.8-2.4); Potassium 4.6 mmol/L (3.5-5.1); Sodium 133 mmol/L (136-145); Total Protein 4.8 g/dL (6.4-8.2)
[2024-08-30 05:12] LABS: C Reactive Protein <0.50 mg/dL (<=0.50)
[2024-08-30] MEDS: ONDANSETRON PF 4 MG/2 ML VIAL IV (05:22)
[2024-08-30] MEDS: DIPHENHYDRAMINE HCL 50 MG/ML VIAL 25 MG IVP (05:23)
--- NOTE | 2024-08-30 09:18 | PC.NURSE ---
Pt awake in bed @ 0739 AOx4 C/o 02/27 abd pain , and tender to palpation requesting pain Meds. RN informed. Lungs auscultated clear on all sides. NO sings of edema. BP 93/56 p 59 o2 98 T 97.6. Last BM 08/30/24 soft with tinge of blood.
--- NOTE | 2024-08-30 10:15 | CM.NOTE ---
Rounds made with Dr. Bill, pt continues to c/o abdominal pain. Pt does state she is starting to feel hungry. No discharge today, will attempt to increase diet to CL.
[2024-08-30] MEDS: METHYLPREDNISOLONE SOD SUCC PF 125 MG/2 ML VIAL 60 MG IVP ×3 (10:35→21:48)
[2024-08-30] MEDS: CIPROFLOXACIN IN 5 % DEXTROSE 400 MG/200 ML PREMIX 200 MG IV ×2 (10:36→21:46)
[2024-08-30] MEDS: OXYCODONE HCL/ACETAMINOPHEN 5MG/325MG 1 TAB PO ×3 (11:28→23:06)
[2024-08-30] MEDS: DIPHENHYDRAMINE HCL 25 MG CAPSULE 50 MG PO ×3 (11:30→23:06)
--- NOTE | 2024-08-30 11:38 | PM.HP ---
HPI H&P: HPI History of Present Illness Chief complaint: LOWER GI BLEED, CROHNS COLITIS Narrative: 23 y/o female with a history of Crohn's disease to ER with abdominal pain and blood in stool. C/o worsening pain for 5 days. Pain worse after eating or drinking. Developed severe nausea then diarrhea. Noticed blood in stool for 2 days. Developed mild SOB and history of anemia requiring transfusion during a flare. To ER and Hbd 10.4. C. diff negative. X-ray abdomen with air fluid levels. WBC normal. Continued pain and nausea and admitted for treatment. Initially NPO and on IV fluids. Reports pain persists but improved this am. Hgb lower at 8.9. Follows with GI and on intivio. Mild nausea and starting to feel hungry. Opioid HPI Opioid Management Most Recent Pain and Opioid Data: Last Pain Scale 7 08/30/24 11:28 08/30/24 Last Pain Assessment 08/30/24 10:00 Last MAR Pain Assessment 08/30/24 11:28 Last ORT Total Score 1 08/29/24 23:46 08/29/24 Last ORT Risk Category Low Risk 08/29/24 23:46 08/29/24 Review of Systems ROS Constitutional Denies: fever, chills or fatigue Cardiovascular Denies: chest pain, palpitations or edema Respiratory Denies: shortness of breath, cough or wheezing Gastrointestinal Reports: abdominal pain, nausea, vomiting, diarrhea and blood in stool Genitourinary Denies: painful urination [facility] Medical History (Updated 08/30/24 @ 11:45 by Umang Bill MD) Crohn's colitis ?K50.10 - Crohn's disease of large intestine without complications (ICD-10) Hypocalcemia ?E83.51 - Hypocalcemia (ICD-10) Rectal bleeding ?K62.5 - Hemorrhage of anus and rectum (ICD-10) Exacerbation of Crohn's disease ?K50.90 - Crohn's disease, unspecified, without complications (ICD-10) Abdominal pain ?R10.9 - Unspecified abdominal pain (ICD-10) Nausea and vomiting ?R11.2 - Nausea with vomiting, unspecified (ICD-10) Diarrhea ?R19.7 - Diarrhea, unspecified (ICD-10) Anxiety ?F41.9 - Anxiety disorder, unspecified (ICD-10) IBS (irritable bowel syndrome) ?K58.9 - Irritable bowel syndrome, unspecified (ICD-10) Crohn disease ?K50.90 - Crohn's disease, unspecified, without complications (ICD-10) Surgical History History of colostomy reversal ?Z98.890 - Other specified postprocedural states (ICD-10) History of colon resection ?Z90.49 - Acquired absence of other specified parts of digestive tract (ICD-10) Social History Highest level of school completed/degree received: high school graduate Little interest or pleasure in doing things: not at all Feeling down, depressed, or hopeless: not at all Meds Home Medications and Allergies Home Medications ?Medication ?Instructions ?Recorded ?Confirmed ?Type ciprofloxacin HCl 500 mg tablet 500 mg PO BID #10 tabs 08/11/24 Rx metronidazole 500 mg tablet 500 mg PO BID #10 tabs 08/11/24 Rx ondansetron 4 mg disintegrating 4 mg PO Q6H PRN nausea and 08/11/24 Rx tablet vomiting 3 days #10 tabs oxycodone 5 mg tablet 5 mg PO Q6H PRN pain 3 days #10 08/11/24 Rx tabs prednisone 20 mg tablet 20 mg PO DAILY #20 tabs 08/11/24 Rx Allergies Allergy/AdvReac Type Severity Reaction Status Date / Time adhesive Allergy Intermediate Blister Verified 08/07/24 15:01 iron Allergy Intermediate Hives Verified 04/03/24 21:14 ketorolac (From Toradol) Allergy Intermediate hives Verified 04/03/24 21:14 Penicillins Allergy Intermediate Hives Verified 04/03/24 21:14 vancomycin Allergy Intermediate Hives Verified 04/03/24 21:14 tramadol AdvReac Intermediate JAW Verified 08/07/24 15:01 CLENCHING Exam Constitutional Vital Signs, click to edit/add: Last Vital Signs Temp 97.6 F 08/30/24 08:09 Pulse 61 08/30/24 09:03 Resp 16 08/30/24 09:03 BP 98/61 08/30/24 09:03 Pulse Ox 98 08/30/24 10:45 O2 Del Method Room Air 08/30/24 10:45 Documenting provider has reviewed patient's vital signs: yes Common normals: no apparent distress, oriented x3 and alert HENMT Common normals: normocephalic Eye Common normals: PERRL and EOMs intact bilaterally Respiratory Common normals: normal respiratory effort and clear to auscultation bilaterally Cardio Common normals: regular rate, regular rhythm, no gallops, no murmurs and no rub GI Auscultation: normoactive bowel sounds Palpation: soft and tender (Diffuse TTP); no guarding Extremity Common normals: no pedal edema Results Labs Labs: Short CBC 08/29/24 08/30/24 Range/Units 19:20 03:25 WBC 9.2 6.8 (4.0-11.0) 10^3/uL Hgb 10.4 L 8.9 L (12.0-16.0) g/dL Hct 32.4 L 27.9 L (36.0-48.0) % Plt Count 208 185 (150-450) 10^3/uL BMP 08/29/24 08/30/24 19:20 03:25 Sodium 132 L 133 L Potassium 4.0 4.6 Chloride 98 101 Carbon Dioxide 28.0 28.6 BUN 6.0 L 5.0 L Creatinine 0.94 1.05 H Glucose 77 260 H Calcium 7.8 L 7.6 L Liver Function 08/29/24 08/30/24 Range/Units 19:20 03:25 Total Bilirubin 0.6 0.3 (0.2-1.0) mg/dL AST 104 H 36 (15-37) U/L ALT 39 35 (14-59) U/L Alkaline Phosphatase 86 77 (46-116) U/L Albumin 2.0 L 1.7 L (3.4-5.0) g/dL Urine 08/30/24 Range/Units 00:17 Urine Color Lt. yellow (YELLOW) Urine Clarity Clear (CLEAR) Urine pH 6.0 (5.0-9.0) Ur Specific [place] 1.010 (1.005-1.025) Urine Protein Negative (NEG/TRACE) mg/dL Urine Glucose (UA) Negative (NEGATIVE) mg/dL Assessment and Plan Assessment and Plan (1) Crohn's disease with rectal bleeding: Qualifiers: Gastrointestinal tract location: unspecified location Qualified Code(s): K50.911 - Crohn's disease, unspecified, with rectal bleeding (2) Anemia due to blood loss: (3) Abdominal pain, generalized: (4) Lower GI bleed: Plan Admitted with Crohn' exacerbation and rectal bleeding. Started on cipro and flagyl. Added solu-medrol. Symptoms slightly improved but continued pain and worsening anemia overnight. Gradually advance diet as tolerated. Start oral pain medication and continue medication for nausea. Likely will need 2-3 days in the hospital.
--- NOTE | 2024-08-30 16:19 | PC.NURSE ---
upholstery instructor verifies and co-signs student nurse charting.
--- NOTE | 2024-08-30 16:21 | PC.NURSE ---
leadership development instructor verifies and co-signs student nurse charting.
[2024-08-31 04:04] VITALS: BP 100/66; PULSE 61; TEMP 36.5; O2SAT 99
[2024-08-31] MEDS: METHYLPREDNISOLONE SOD SUCC PF 125 MG/2 ML VIAL 60 MG IVP ×3 (04:26→16:46)
[2024-08-31] MEDS: METRONIDAZOLE/SODIUM CHLORIDE 500 MG/100 ML PREMIX 100 MG IV ×2 (04:26→11:10)
[2024-08-31 05:11] LABS: Basophils Percent Auto 0.2 % (0.2-2.0); Hematocrit 26.6 % (36.0-48.0); Hemoglobin 8.5 g/dL (12.0-16.0); Immature Granulocytes Pct Auto 0.8 % (0.0-0.5); Lymphocytes Absolute Auto 2.4 10^3/uL (1.2-3.8); Lymphocytes Percent Auto 18.2 % (20.5-60.0); Mean Corpuscular Hemoglobin 26.3 pg (26.7-34.0); Mean Corpuscular Volume 82.4 fL (81.0-99.0); Monocytes Absolute Auto 0.5 10^3/uL (0.3-0.8); Monocytes Percent Auto 3.9 % (1.7-12.0); Neutrophils Absolute Auto 9.9 10^3/uL (1.4-6.5); Neutrophils Percent Auto 76.9 % (43.0-75.0); Platelet Count 258 10^3/uL (150-450); Red Blood Count 3.23 10^6/uL (4.20-5.40); Red Cell Distribution Width 17.8 % (11.0-15.0); White Blood Count 12.9 10^3/uL (4.0-11.0)
[2024-08-31 05:24] LABS: Alanine Aminotransferase 20 U/L (14-59); Albumin Globulin Ratio 0.6; Albumin Level 1.7 g/dL (3.4-5.0); Alkaline Phosphatase 67 U/L (46-116); Anion Gap 7.7; Aspartate Amino Transferase 12 U/L (15-37); BUN Creatinine Ratio 5.2; Bilirubin Total 0.2 mg/dL (0.2-1.0); Calcium 7.5 mg/dL (8.5-10.1); Carbon Dioxide 29.6 mmol/L (21.0-32.0); Chloride 104 mmol/L (98-107); Estimated GFR (African America >60 (>=60 mL/min/1.73m^2); Estimated GFR (Non-African Ame >60 (>=60 mL/min/1.73m^2); Globulin 2.8 g/dL; Glucose 268 mg/dL (74-106); Magnesium 1.2 mg/dL (1.8-2.4); Potassium 4.3 mmol/L (3.5-5.1); Sodium 137 mmol/L (136-145); Total Protein 4.5 g/dL (6.4-8.2)
[2024-08-31 07:31] VITALS: BP 113/80; PULSE 87; TEMP 36.4; O2SAT 98
--- NOTE | 2024-08-31 07:39 | PC.NURSE ---
Pt resting in bed asleep. Aroused by name. AOx4 C/O 12/27 cramping pain in abd. not requesting pain meds at the moment. Had BM 08/30 loose stool no signs of blood. Normal bowel sounds slight tenderness upon palpitation. Been able to tolerated full diet with no issues. Bed in lowest position side rails up call light in reach.
[2024-08-31 07:43] VITALS: PULSE 88; O2SAT 98
[2024-08-31] MEDS: CIPROFLOXACIN IN 5 % DEXTROSE 400 MG/200 ML PREMIX 200 MG IV (09:30)
[2024-08-31] MEDS: DIPHENHYDRAMINE HCL 25 MG CAPSULE 50 MG PO ×2 (09:33→17:41)
[2024-08-31] MEDS: OXYCODONE HCL/ACETAMINOPHEN 5MG/325MG 1 TAB PO ×2 (09:33→17:41)
[2024-08-31 10:30] LABS: Estimated Average Glucose 103 mg/dL; Glycohemoglobin A1C 5.2 % (4.5-6.2)
--- NOTE | 2024-08-31 10:35 | CM.NOTE ---
Rounds made with Dr. Bill, pt continues to c/o abdominal pain and occasional nausea. No discharge today.
[2024-08-31] MEDS: MAGNESIUM SULFATE IN WATER 2 GM/50 ML PREMIX IV (10:39)
--- NOTE | 2024-08-31 10:55 | P.PN_ITS ---
Progress Note: Subjective Subjective Interval history: Patient slightly improved overnight. Tolerating oral intake but still increased pain after eating. Continues to have diarrhea and occasional blood with stool. Pain tolerable with oral percocet. Hgb stable. Afebrile. C/o weakness and not ambulating much around room. No chest pain or palpitations. No SOB or cough. Exam Constitutional Vital Signs, click to edit/add: Last Vital Signs Temp 97.5 F L 08/31/24 07:31 Pulse 88 08/31/24 07:43 Resp 16 08/31/24 07:43 BP 113/80 08/31/24 07:31 Pulse Ox 98 08/31/24 07:43 O2 Del Method Room Air 08/31/24 07:31 Documenting provider has reviewed patient's vital signs: yes Common normals: no apparent distress, oriented x3 and alert HENMT Common normals: normocephalic Eye Common normals: PERRL and EOMs intact bilaterally Respiratory Common normals: normal respiratory effort and clear to auscultation bilaterally Cardio Common normals: regular rate, regular rhythm, no gallops, no murmurs and no rub GI Common normals: Normal to inspection, nondistended, normoactive bowel sounds present and non-tender Extremity Common normals: no pedal edema Progress Note: Objective Labs Labs: Short CBC 08/31/24 Range/Units 04:50 WBC 12.9 H (4.0-11.0) 10^3/uL Hgb 8.5 L (12.0-16.0) g/dL Hct 26.6 L (36.0-48.0) % Plt Count 258 (150-450) 10^3/uL BMP 08/31/24 04:50 Sodium 137 Potassium 4.3 Chloride 104 Carbon Dioxide 29.6 BUN 5.0 L Creatinine 0.97 Glucose 268 H Calcium 7.5 L Liver Function 08/31/24 Range/Units 04:50 Total Bilirubin 0.2 (0.2-1.0) mg/dL AST 12 L (15-37) U/L ALT 20 (14-59) U/L Alkaline Phosphatase 67 (46-116) U/L Albumin 1.7 L (3.4-5.0) g/dL Progress Note: A&P Assessment and Plan (1) Crohn's disease with rectal bleeding: Qualifiers: Gastrointestinal tract location: unspecified location Qualified Code(s): K50.911 - Crohn's disease, unspecified, with rectal bleeding (2) Anemia due to blood loss: (3) Abdominal pain, generalized: (4) Lower GI bleed: (5) Hypomagnesemia: Plan Patient slowly improving. Continue antibiotics and steroids. Increase oral intake and increase ambulation. Continue medication for pain and nausea. Mag nesium low and replace. Hgb stable and monitor labs. Likely ready for discharge in next 1-2 days.
[2024-08-31 11:01] VITALS: BP 92/53; PULSE 88; TEMP 36.5; O2SAT 98
[2024-08-31 11:08] VITALS: O2SAT 98
[2024-08-31] MEDS: CALCIUM CARBONATE 500 MG (200MG ELEMENTAL) TAB CHEW 1500 MG PO ×2 (11:13→17:41)
[2024-08-31 14:00] VITALS: BP 114/76; PULSE 70; TEMP 36.3; O2SAT 98
--- NOTE | 2024-08-31 16:06 | DIETREC ---
Recommend [place]/Low Fiber diet d/t dx Crohn's. [place] text to Dr. Bill, diet education provided to pt. Monitor diet tolerance and continue to follow PRN.
--- NOTE | 2024-08-31 18:30 | PM.DS1 ---
DS: Providers Provider Date of admission: 08/30/24 11:07 Primary care physician: [facility] DS: Diagnosis Discharge Diagnosis (1) Crohn's disease with rectal bleeding: Qualifiers: Gastrointestinal tract location: unspecified location Qualified Code(s): K50.911 - Crohn's disease, unspecified, with rectal bleeding (2) Anemia due to blood loss: (3) Abdominal pain, generalized: (4) Lower GI bleed: (5) Hypomagnesemia: DS: Summary Hospital Course Hospital Course: Reason for admission: See H&P for details. 23 y/o female with a history of Crohn's disease to ER with abdominal pain and blood in stool. C/o worsening pain for 5 days. Pain worse after eating or drinking. Developed severe nausea then diarrhea. Noticed blood in stool for 2 days. Developed mild SOB and history of anemia requiring transfusion during a flare. To ER and Hgb 10.4. C. diff negative. X-ray abdomen with air fluid levels. WBC normal. Continued pain and nausea and admitted for treatment. Hospital course: Initially NPO and on IV fluids. Started cipro and flagyl. Started solu-medrol for inflammation. Reports pain persists but improved. Repeat Hgb lower at 8.9. Follows with GI and on intivio. Mild nausea and started to feel hungry. Started liquid diet and oral percocet. Gradually improved. Less pain and nausea. Able to tolerate oral intake. Advanced to regular diet and tolerated well. Mild abdominal pain but tolerable with medication. [place] well and wanted to go home. Will take cipro and flagyl for 10 days. Use zofran and oxycodone PRN. Follow up with GI in 2-4 weeks. Time Spent with Patient Time attestation: Total time spent providing and/or coordinating discharge services: Time spent: greater than 30 minutes Exam Constitutional Vital Signs, click to edit/add: Last Vital Signs Temp 97.4 F L 08/31/24 14:00 Pulse 70 08/31/24 14:00 Resp 16 08/31/24 14:00 BP 114/76 08/31/24 14:00 Pulse Ox 98 08/31/24 14:00 O2 Del Method Room Air 08/31/24 14:00 Documenting provider has reviewed patient's vital signs: yes Common normals: no apparent distress, oriented x3 and alert HENMT Common normals: normocephalic Eye Common normals: PERRL and EOMs intact bilaterally Respiratory Common normals: normal respiratory effort and clear to auscultation bilaterally Cardio Common normals: regular rate, regular rhythm, no gallops, no murmurs and no rub GI Common normals: Normal to inspection, nondistended, normoactive bowel sounds present and non-tender Extremity Common normals: no pedal edema DS: Data Data Completed and Pending Labs on day of discharge: Labs from last 24 hours 08/31/24 04:50 WBC 12.9 H RBC 3.23 L Hgb 8.5 L Hct 26.6 L MCV 82.4 MCH 26.3 L MCHC 32.0 RDW 17.8 H Plt Count 258 MPV 10.0 Neut % (Auto) 76.9 H Lymph % (Auto) 18.2 L [place] % (Auto) 3.9 Eos % (Auto) 0.0 L Baso % (Auto) 0.2 Neut # (Auto) 9.9 H Lymph # (Auto) 2.4 [place] # (Auto) 0.5 Eos # (Auto) 0.0 Baso # (Auto) 0.0 Abs Immat Gran (auto) 0.10 H Imm/Tot Granulo (auto) 0.8 H Sodium 137 Potassium 4.3 Chloride 104 Carbon Dioxide 29.6 Anion Gap 7.7 BUN 5.0 L Creatinine 0.97 Est GFR ( Amer) >60 Est GFR (Non-Af Amer) >60 BUN/Creatinine Ratio 5.2 Glucose 268 H Estimat Average Glucose 103 Hemoglobin A1c 5.2 Calcium 7.5 L Magnesium 1.2 L Total Bilirubin 0.2 AST 12 L ALT 20 Alkaline Phosphatase 67 Total Protein 4.5 L Albumin 1.7 L Globulin 2.8 Albumin/Globulin Ratio 0.6 Discharge Plan Discharge Disposition: Home, Self-Care Condition: Fair Discharge Medications: New ondansetron 4 mg tablet,disintegrating 4 mg PO Q6H PRN (Reason: nausea and vomiting) Qty: 20 0RF prednisone 50 mg tablet 50 mg PO DAILY 5 Days Qty: 5 0RF Continued ciprofloxacin HCl 500 mg tablet 500 mg PO BID 10 Days Qty: 20 0RF Changed metronidazole 500 mg tablet 500 mg PO QID 10 Days Qty: 40 0RF oxycodone 5 mg tablet 5 mg PO QID PRN (Reason: pain) 5 Days Qty: 20 0RF Discontinued ondansetron 4 mg tablet,disintegrating 4 mg PO Q6H PRN (Reason: nausea and vomiting) 3 Days Qty: 10 0RF prednisone 20 mg tablet 20 mg PO DAILY Qty: 20 0RF Rx Instructions: 3 tabs x 3 days, 2 tabs x 3 days, 1 tab x 3 days, 1/2 tab for 4 days Activity: increase activity as tolerated Diet: advance to your usual diet Print Language: Albanian Patient Instructions: Ciprofloxacin (By mouth), Oxycodone/Acetaminophen (By mouth), Prednisone (By mouth), Metronidazole (By mouth), Ondansetron (By mouth), Crohn Disease (DC), Abdominal Pain (DC) Forms: Portal Instructions Follow Up Appointments: Call on Tuesday to follow up with your Crohns doctor.
[2024-09-01 08:15] LABS: Calprotectin, Fecal 875 ug/g (0-120)
--- NOTE | 2024-09-04 14:49 | CM.DCFOLLOWU ---
Person spoke with: Renee How are you feeling? Better How is your pain? No pain Did you understand your discharge instructions? Yes Do you have any questions about your discharge instructions? No Were you given any prescriptions at discharge? Yes Were you able to get your prescriptions filled? Yes Do you understand how to take your medications as ordered? Yes Do you have any questions about your follow up appointment and do you plan to keep your follow up appointment? I called and scheduled appt yesterday Is there anything else that you would like to discuss? No Questions/Comments/Concerns/Other:
== END 2024-08-31 19:00 | disposition home or self-care (01) | DRG 245 ==
LOC: ER 23:28 → MS 08-30 06:11
PROVIDERS: Registered Nurse; Admitting Provider Family Medicine; Emergency Provider Emergency Medicine; Visit Provider Family Medicine
DX: K50.911 Crohn's disease, unspecified, with rectal bleeding (principal); D62 Acute posthemorrhagic anemia; E83.42 Hypomagnesemia; Z79.52 Long term (current) use of systemic steroids; E83.51 Hypocalcemia; Z79.61 Long term (current) use of immunomodulator; Z88.0 Allergy status to penicillin; Z88.1 Allergy status to other antibiotic agents; Z88.5 Allergy status to narcotic agent; Z91.048 Other nonmedicinal substance allergy status; Z88.8 Allergy status to other drugs, medicaments and biological substances; F41.9 Anxiety disorder, unspecified; E87.6 Hypokalemia; Z68.1 Body mass index [BMI] 19.9 or less, adult; E43 Unspecified severe protein-calorie malnutrition; Z88.6 Allergy status to analgesic agent; Z90.49 Acquired absence of other specified parts of digestive tract
CPT/HCPCS: 36415; 36592; 74019; 80053; 81001; 83036; 83605; 83735; 83993; 84703; 85025; 86140; 86850; 86900; 86901; 87045; 87046; 87427; 87493; 94761; 96365; 96367; 96375; 96376; 99285; J0612; J0744; J1200; J1836; J2270; J2405; J2919; J3475

== ENCOUNTER 2024-09-09 16:12 | Inpatient (IN) | payer OTHER, SELFPAY ==
[2024-09-09 16:16] VITALS: BP 105/77; PULSE 94; TEMP 36.4; O2SAT 100; BMI 17.9
--- NOTE | 2024-09-09 16:25 | ED_ITS ---
Documented by User: LEDY Mares 09/09/24 21:26 HPI - Abdominal Pain General Chief Complaint: Abdominal Pain Stated Complaint: ABDOMINAL PAIN, BLOOD IN STOOL Time Seen by Provider: 09/09/24 16:13 Source: patient Mode of arrival: walk-in History of Present Illness HPI narrative: Patient is a 23-year-old female with a history of Crohn's who is well-known to this emergency department and other local emergency departments. She presents with worsening abdominal pain, blood in her stool and vomiting. She was seen in this emergency department about 2 weeks ago and admitted for Crohn's exacerbation. She was also admitted to this facility 1 month ago for pain control pending a transfer to [facility]. She receives all of her GI care at the [facility]. She states yesterday she finished Cipro and Flagyl which were prescribed to her when she was discharged from the hospital on 08/31/2024. She has not had any fevers. She has no concern for . She states she has an in person follow-up with the [facility] on September 19. She had a telephone encounter for follow-up after her recent discharge from this facility. She states her home Zofran is not improving her vomiting. Related Data Home Medications ?Medication ?Instructions ?Recorded ?Confirmed No Known Home Medications 09/09/24 09/09/24 Allergies Allergy/AdvReac Type Severity Reaction Status Date / Time adhesive Allergy Intermediate Blister Verified 08/07/24 15:01 iron Allergy Intermediate Hives Verified 04/03/24 21:14 ketorolac (From Toradol) Allergy Intermediate hives Verified 04/03/24 21:14 Penicillins Allergy Intermediate Hives Verified 04/03/24 21:14 vancomycin Allergy Intermediate Hives Verified 04/03/24 21:14 tramadol AdvReac Intermediate JAW Verified 08/07/24 15:01 [place] Review of Systems ROS Constitutional Denies: fever or chills Ears, nose, mouth, and throat Denies: throat pain or nasal congestion Cardiovascular Denies: chest pain Respiratory Denies: shortness of breath or cough Gastrointestinal Reports: abdominal pain, nausea, vomiting, diarrhea and blood in stool Musculoskeletal Denies: back pain Integumentary/Breast Denies: rash Neurological Denies: numbness in extremities or weakness in extremities Hematologic/Lymphatic Denies: easy bruising or easy bleeding [facility] Medical History (Updated 09/09/24 @ 21:26 by LEDY Mares) Hypomagnesemia ?E83.42 - Hypomagnesemia (ICD-10) Crohn's disease with rectal bleeding ?K50.911 - Crohn's disease, unspecified, with rectal bleeding (ICD-10) 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) Crohn's colitis ?K50.10 - Crohn's disease of large intestine without complications (ICD-10) Hypocalcemia ?E83.51 - Hypocalcemia (ICD-10) Rectal bleeding ?K62.5 - Hemorrhage of anus and rectum (ICD-10) Exacerbation of Crohn's disease ?K50.90 - Crohn's disease, unspecified, without complications (ICD-10) Abdominal pain ?R10.9 - Unspecified abdominal pain (ICD-10) Nausea and vomiting ?R11.2 - Nausea with vomiting, unspecified (ICD-10) Diarrhea ?R19.7 - Diarrhea, unspecified (ICD-10) Anxiety ?F41.9 - Anxiety disorder, unspecified (ICD-10) IBS (irritable bowel syndrome) ?K58.9 - Irritable bowel syndrome, unspecified (ICD-10) Crohn disease ?K50.90 - Crohn's disease, unspecified, without complications (ICD-10) Surgical History History of colostomy reversal ?Z98.890 - Other specified postprocedural states (ICD-10) History of colon resection ?Z90.49 - Acquired absence of other specified parts of digestive tract (ICD- 10) Social History Highest level of school completed/degree received: high school graduate Little interest or pleasure in doing things: not at all Feeling down, depressed, or hopeless: not at all Exam Narrative Exam Narrative: Gen.: Awake, alert, in no distress Head: Normocephalic, atraumatic ENT: Moist mucous membranes Respiratory: No respiratory distress, lungs clear bilaterally Cardio: Regular rate and rhythm Gastrointestinal: Abdomen is soft, diffusely tender to palpation with voluntary guarding and no rebound Extremities: Moves extremities equally Psych: Normal mood and affect Neuro: No focal neuro deficit Skin: Warm, dry, intact Constitutional Vital Signs, click to edit/add: Last Vital Signs Temp 98.9 F 09/09/24 19:35 Pulse 74 09/10/24 06:12 Resp 16 09/10/24 06:12 BP 97/69 09/10/24 06:12 Pulse Ox 100 09/10/24 06:12 O2 Del Method Room Air 09/10/24 02:47 Course Vital Signs Vital signs: Vital Signs Temperature 97.5 F L 09/09/24 16:16 Pulse Rate 94 H 09/09/24 16:16 Respiratory Rate 16 09/09/24 16:16 Blood Pressure 105/77 09/09/24 16:16 Pulse Oximetry 100 09/09/24 16:16 Oxygen Delivery Method Room Air 09/09/24 16:16 Temperature 98.9 F 09/09/24 19:35 Pulse Rate 74 09/10/24 06:12 Respiratory Rate 16 09/10/24 06:12 Blood Pressure 97/69 09/10/24 06:12 Pulse Oximetry 100 09/10/24 06:12 Oxygen Delivery Method Room Air 09/10/24 02:47 MDM - Abdominal Pain MDM Narrative Medical decision making narrative: This patient was evaluated by me almost immediately on placement in her room, she has diffuse pain in the abdomen with voluntary guarding. An IV was established and labs were drawn. She provided a grossly bloody stool specimen which was sent for culture. PCR was unable to be performed for C. difficile as the specimen was too thick. A stool culture is pending. Patient was medicated with morphine, Zofran and Benadryl. She has a longstanding history of requesting Benadryl IV with narcotics. She is not noted to have any rashes or hives. No evidence of anaphylaxis in the ER. CT was performed without contrast as the patient states she requires another 50 mg of IV Benadryl in order to have a CT with contrast. CT shows the patient has diffuse colitis which is likely inflammatory. She is noted to have improved hemoglobin in the ER from previous and stable kidney function and electrolytes. CRP is elevated, CRP had been previously normal on her last visits. IV Solu-Medrol given. Patient was given additional morphine. She requested multiple doses of narcotics throughout her stay in the ER. She did not have any episodes of emesis. Patient was reevaluated by attending physician. She finished Cipro and Flagyl yesterday, she continues to have evidence of Crohn's exacerbation and now has elevated inflammatory markers. We have no surgical or GI services at this facility and the patient receives all of her GI care at the [facility]. Transfer was initiated to [facility] where the patient has been admitted multiple times in the past. She was accepted by medical hospitalist, Dr. Sheldon ([id number]) for transfer. She is hemodynamically stable at this time. 2122: Care transferred to attending physician for management until bed becomes available. Critical care time 35 min Medical Records Attestation: I reviewed the patient's medical records. Lab Data Attestation: I reviewed the patient's lab results. Labs: Lab Results 09/09/24 09/09/24 Range/Units 16:47 17:20 WBC 12.0 H (4.0-11.0) 10^3/uL RBC 3.85 L (4.20-5.40) 10^6/uL Hgb 9.7 L (12.0-16.0) g/dL Hct 31.2 L (36.0-48.0) % MCV 81.0 (81.0-99.0) fL MCH 25.2 L (26.7-34.0) pg MCHC 31.1 (29.9-35.2) g/dL RDW 18.7 H (11.0-15.0) % Plt Count 281 (150-450) 10^3/uL MPV 9.2 L (9.5-13.5) fL Neut % (Auto) 72.9 (43.0-75.0) % Lymph % (Auto) 19.5 L (20.5-60.0) % [place] % (Auto) 6.7 (1.7-12.0) % Eos % (Auto) 0.3 L (0.9-7.0) % Baso % (Auto) 0.3 (0.2-2.0) % Neut # (Auto) 8.7 H (1.4-6.5) 10^3/uL Lymph # (Auto) 2.3 (1.2-3.8) 10^3/uL [place] # (Auto) 0.8 (0.3-0.8) 10^3/uL Eos # (Auto) 0.0 (0.0-0.7) 10^3/uL Baso # (Auto) 0.0 (0.0-0.1) 10^3/uL Abs Immat Gran (auto) 0.04 H (0.00-0.03) 10^3/uL Imm/Tot Granulo (auto) 0.3 (0.0-0.5) % ESR 16 (<=20) mm/hr Sodium 137 (136-145) mmol/L Potassium 3.3 L (3.5-5.1) mmol/L Chloride 101 (98-107) mmol/L Carbon Dioxide 25.7 (21.0-32.0) mmol/L Anion Gap 13.6 BUN 10.0 (7.0-18.0) mg/dL Creatinine 1.08 H (0.55-1.02) mg/dL Est GFR ( Amer) >60 (>=60 mL/min/1.73m^2) Est GFR (Non-Af Amer) >60 (>=60 mL/min/1.73m^2) BUN/Creatinine Ratio 9.3 Glucose 78 (74-106) mg/dL Lactate 0.8 (0.4-2.0) mmol/L Calcium 7.9 L (8.5-10.1) mg/dL Total Bilirubin 0.5 (0.2-1.0) mg/dL AST 13 L (15-37) U/L ALT 31 (14-59) U/L Alkaline Phosphatase 80 (46-116) U/L C-Reactive Protein 1.44 H (<=0.50) mg/dL Total Protein 5.4 L (6.4-8.2) g/dL Albumin 1.8 L (3.4-5.0) g/dL Globulin 3.6 g/dL Albumin/Globulin Ratio 0.5 Lipase <10.0 L (16.0-77.0) U/L Serum HCG, Qual Negative (NEGATIVE) Urine Color Dk. yellow (YELLOW) Urine Clarity Sl cloudy (CLEAR) Urine pH 6.5 (5.0-9.0) Ur Specific [place] 1.020 (1.005-1.025) Urine Protein 30 A (NEG/TRACE) mg/dL Urine Glucose (UA) Negative (NEGATIVE) mg/dL Urine Ketones Trace A (NEGATIVE) mg/dL Urine Occult Blood Negative (NEGATIVE) Urine Nitrite Negative (NEGATIVE) Urine Bilirubin Small A (NEGATIVE) Urine Urobilinogen 1.0 (0.2-1.0) EU/dL Ur Leukocyte Esterase Trace A (NEGATIVE) Urine RBC 0-2 (0-2) #/HPF Urine WBC 2-5 A (NONE SEEN) #/HPF Ur Squamous Epith Cells Few A (NONE/RARE) #/LPF Ur Transition Epith Cell Rare A (NONE SEEN) #/LPF Urine Crystals None seen (None Seen) #/HPF Urine Bacteria Moderate A (NONE SEEN) #/HPF Urine Casts None seen (NONE SEEN) #/LPF Urine Mucus Large A (NONE SEEN) Ur Culture Indicated? Yes-[facility] [place] Stool Occult Blood Positive A Imaging Data CT scan - abdomen: Attestation: I have reviewed the pertinent imaging results. Radiologist's impression: CT of the abdomen without contrast: Diffuse colitis likely inflammatory Discharge Plan Discharge Chief Complaint: Abdominal Pain Clinical Impression: Abdominal pain, Exacerbation of Crohn's disease, Failure of outpatient treatment Time of Disposition Decision: 21:25 Condition: Good Mode of Transportation: EMS Prescriptions / Home Meds: No Action No Known Home Medications Print Language: Sinhala Referrals: [facility] [Primary Care Provider] - 1 week Documented by User: Zaheer Rg MD 09/10/24 07:19 HPI - Abdominal Pain General Chief Complaint: Abdominal Pain Stated Complaint: ABDOMINAL PAIN, BLOOD IN STOOL Time Seen by Provider: 09/09/24 16:13 Related Data Home Medications ?Medication ?Instructions ?Recorded ?Confirmed No Known Home Medications 09/09/24 09/09/24 Allergies Allergy/AdvReac Type Severity Reaction Status Date / Time adhesive Allergy Intermediate Blister Verified 08/07/24 15:01 iron Allergy Intermediate Hives Verified 04/03/24 21:14 ketorolac (From Toradol) Allergy Intermediate hives Verified 04/03/24 21:14 Penicillins Allergy Intermediate Hives Verified 04/03/24 21:14 vancomycin Allergy Intermediate Hives Verified 04/03/24 21:14 tramadol AdvReac Intermediate JAW Verified 08/07/24 15:01 [facility] [facility] Medical History (Updated 09/09/24 @ 21:26 by LEDY Mares) Hypomagnesemia ?E83.42 - Hypomagnesemia (ICD-10) Crohn's disease with rectal bleeding ?K50.911 - Crohn's disease, unspecified, with rectal bleeding (ICD-10) 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) Crohn's colitis ?K50.10 - Crohn's disease of large intestine without complications (ICD-10) Hypocalcemia ?E83.51 - Hypocalcemia (ICD-10) Rectal bleeding ?K62.5 - Hemorrhage of anus and rectum (ICD-10) Exacerbation of Crohn's disease ?K50.90 - Crohn's disease, unspecified, without complications (ICD-10) Abdominal pain ?R10.9 - Unspecified abdominal pain (ICD-10) Nausea and vomiting ?R11.2 - Nausea with vomiting, unspecified (ICD-10) Diarrhea ?R19.7 - Diarrhea, unspecified (ICD-10) Anxiety ?F41.9 - Anxiety disorder, unspecified (ICD-10) IBS (irritable bowel syndrome) ?K58.9 - Irritable bowel syndrome, unspecified (ICD-10) Crohn disease ?K50.90 - Crohn's disease, unspecified, without complications (ICD-10) Surgical History History of colostomy reversal ?Z98.890 - Other specified postprocedural states (ICD-10) History of colon resection ?Z90.49 - Acquired absence of other specified parts of digestive tract (ICD- 10) Social History Highest level of school completed/degree received: high school graduate Little interest or pleasure in doing things: not at all Feeling down, depressed, or hopeless: not at all Exam Constitutional Vital Signs, click to edit/add: Last Vital Signs Temp 98.9 F 09/09/24 19:35 Pulse 74 09/10/24 06:12 Resp 16 09/10/24 06:12 BP 97/69 09/10/24 06:12 Pulse Ox 100 09/10/24 06:12 O2 Del Method Room Air 09/10/24 02:47 Course Vital Signs Vital signs: Vital Signs Temperature 97.5 F L 09/09/24 16:16 Pulse Rate 94 H 09/09/24 16:16 Respiratory Rate 16 09/09/24 16:16 Blood Pressure 105/77 09/09/24 16:16 Pulse Oximetry 100 09/09/24 16:16 Oxygen Delivery Method Room Air 09/09/24 16:16 Temperature 98.9 F 09/09/24 19:35 Pulse Rate 74 09/10/24 06:12 Respiratory Rate 16 09/10/24 06:12 Blood Pressure 97/69 09/10/24 06:12 Pulse Oximetry 100 09/10/24 06:12 Oxygen Delivery Method Room Air 09/10/24 02:47 MDM - Abdominal Pain MDM Narrative Medical decision making narrative: This patient was evaluated by me almost immediately on placement in her room, she has diffuse pain in the abdomen with voluntary guarding. An IV was established and labs were drawn. She provided a grossly bloody stool specimen which was sent for culture. PCR was unable to be performed for C. difficile as the specimen was too thick. A stool culture is pending. Patient was medicated with morphine, Zofran and Benadryl. She has a longstanding history of requesting Benadryl IV with narcotics. She is not noted to have any rashes or hives. No evidence of anaphylaxis in the ER. CT was performed without contrast as the patient states she requires another 50 mg of IV Benadryl in order to have a CT with contrast. CT shows the patient has diffuse colitis which is likely inflammatory. She is noted to have improved hemoglobin in the ER from previous and stable kidney function and electrolytes. CRP is elevated, CRP had been previously normal on her last visits. IV Solu-Medrol given. Patient was given additional morphine. She requested multiple doses of narcotics throughout her stay in the ER. She did not have any episodes of emesis. Patient was reevaluated by attending physician. She finished Cipro and Flagyl yesterday, she continues to have evidence of Crohn's exacerbation and now has elevated inflammatory markers. We have no surgical or GI services at this facility and the patient receives all of her GI care at the [facility]. Transfer was initiated to [facility] where the patient has been admitted multiple times in the past. She was accepted by medical hospitalist, Dr. Sheldon ([id number]) for transfer. She is hemodynamically stable at this time. 2122: Care transferred to attending physician for management until bed becomes available. Critical care time 35 min Signout note: No events overnight. Patient continues to require as needed medications as ordered. She has remained boarding awaiting bed at [facility] for Crohn's flare. Case was discussed with Dr. Pemberton who agrees admit the patient to the hospital for further care while she awaits transfer. Zaheer Rg DO, [facility] Lab Data Labs: Lab Results 09/09/24 09/09/24 Range/Units 16:47 17:20 WBC 12.0 H (4.0-11.0) 10^3/uL RBC 3.85 L (4.20-5.40) 10^6/uL Hgb 9.7 L (12.0-16.0) g/dL Hct 31.2 L (36.0-48.0) % MCV 81.0 (81.0-99.0) fL MCH 25.2 L (26.7-34.0) pg MCHC 31.1 (29.9-35.2) g/dL RDW 18.7 H (11.0-15.0) % Plt Count 281 (150-450) 10^3/uL MPV 9.2 L (9.5-13.5) fL Neut % (Auto) 72.9 (43.0-75.0) % Lymph % (Auto) 19.5 L (20.5-60.0) % [place] % (Auto) 6.7 (1.7-12.0) % Eos % (Auto) 0.3 L (0.9-7.0) % Baso % (Auto) 0.3 (0.2-2.0) % Neut # (Auto) 8.7 H (1.4-6.5) 10^3/uL Lymph # (Auto) 2.3 (1.2-3.8) 10^3/uL [place] # (Auto) 0.8 (0.3-0.8) 10^3/uL Eos # (Auto) 0.0 (0.0-0.7) 10^3/uL Baso # (Auto) 0.0 (0.0-0.1) 10^3/uL Abs Immat Gran (auto) 0.04 H (0.00-0.03) 10^3/uL Imm/Tot Granulo (auto) 0.3 (0.0-0.5) % ESR 16 (<=20) mm/hr Sodium 137 (136-145) mmol/L Potassium 3.3 L (3.5-5.1) mmol/L Chloride 101 (98-107) mmol/L Carbon Dioxide 25.7 (21.0-32.0) mmol/L Anion Gap 13.6 BUN 10.0 (7.0-18.0) mg/dL Creatinine 1.08 H (0.55-1.02) mg/dL Est GFR ( Amer) >60 (>=60 mL/min/1.73m^2) Est GFR (Non-Af Amer) >60 (>=60 mL/min/1.73m^2) BUN/Creatinine Ratio 9.3 Glucose 78 (74-106) mg/dL Lactate 0.8 (0.4-2.0) mmol/L Calcium 7.9 L (8.5-10.1) mg/dL Total Bilirubin 0.5 (0.2-1.0) mg/dL AST 13 L (15-37) U/L ALT 31 (14-59) U/L Alkaline Phosphatase 80 (46-116) U/L C-Reactive Protein 1.44 H (<=0.50) mg/dL Total Protein 5.4 L (6.4-8.2) g/dL Albumin 1.8 L (3.4-5.0) g/dL Globulin 3.6 g/dL Albumin/Globulin Ratio 0.5 Lipase <10.0 L (16.0-77.0) U/L Serum HCG, Qual Negative (NEGATIVE) Urine Color Dk. yellow (YELLOW) Urine Clarity Sl cloudy (CLEAR) Urine pH 6.5 (5.0-9.0) Ur Specific [place] 1.020 (1.005-1.025) Urine Protein 30 A (NEG/TRACE) mg/dL Urine Glucose (UA) Negative (NEGATIVE) mg/dL Urine Ketones Trace A (NEGATIVE) mg/dL Urine Occult Blood Negative (NEGATIVE) Urine Nitrite Negative (NEGATIVE) Urine Bilirubin Small A (NEGATIVE) Urine Urobilinogen 1.0 (0.2-1.0) EU/dL Ur Leukocyte Esterase Trace A (NEGATIVE) Urine RBC 0-2 (0-2) #/HPF Urine WBC 2-5 A (NONE SEEN) #/HPF Ur Squamous Epith Cells Few A (NONE/RARE) #/LPF Ur Transition Epith Cell Rare A (NONE SEEN) #/LPF Urine Crystals None seen (None Seen) #/HPF Urine Bacteria Moderate A (NONE SEEN) #/HPF Urine Casts None seen (NONE SEEN) #/LPF Urine Mucus Large A (NONE SEEN) Ur Culture Indicated? Yes-[facility] [place] Stool Occult Blood Positive A Discharge Plan Discharge Chief Complaint: Abdominal Pain Clinical Impression: Abdominal pain, Exacerbation of Crohn's disease, Failure of outpatient treatment Time of Disposition Decision: 21:25 Condition: Good Mode of Transportation: EMS Prescriptions / Home Meds: No Action No Known Home Medications Print Language: Sinhala Referrals: [facility] [Primary Care Provider] - 1 week
[2024-09-09] MEDS: ONDANSETRON PF 4 MG/2 ML VIAL IV ×2 (16:46→18:50)
[2024-09-09] MEDS: MORPHINE SULFATE 4 MG/ML VIAL IV ×3 (16:46→22:39)
[2024-09-09] MEDS: DIPHENHYDRAMINE HCL 50 MG/ML VIAL 12.5 MG IVP (16:46)
[2024-09-09] MEDS: HYOSCYAMINE SULFATE 0.125 MG TAB.SUBL SL (16:47)
[2024-09-09] MEDS: 0.9 % SODIUM CHLORIDE 1,000 ML 999 ML IV (16:47)
--- NOTE | 2024-09-09 16:53 | PC.NURSE ---
port access to left chest successful, pt tolerated well, immediate blood return
[2024-09-09 17:03] LABS: Basophils Percent Auto 0.3 % (0.2-2.0); Eosinophils Percent Auto 0.3 % (0.9-7.0); Hematocrit 31.2 % (36.0-48.0); Hemoglobin 9.7 g/dL (12.0-16.0); Immature Granulocytes Abs Auto 0.04 10^3/uL (0.00-0.03); Immature Granulocytes Pct Auto 0.3 % (0.0-0.5); Lymphocytes Absolute Auto 2.3 10^3/uL (1.2-3.8); Lymphocytes Percent Auto 19.5 % (20.5-60.0); Mean Corpuscular HGB Conc 31.1 g/dL (29.9-35.2); Mean Corpuscular Hemoglobin 25.2 pg (26.7-34.0); Mean Platelet Volume 9.2 fL (9.5-13.5); Monocytes Absolute Auto 0.8 10^3/uL (0.3-0.8); Monocytes Percent Auto 6.7 % (1.7-12.0); Neutrophils Absolute Auto 8.7 10^3/uL (1.4-6.5); Neutrophils Percent Auto 72.9 % (43.0-75.0); Platelet Count 281 10^3/uL (150-450); Red Blood Count 3.85 10^6/uL (4.20-5.40); Red Cell Distribution Width 18.7 % (11.0-15.0)
[2024-09-09 17:14] LABS: HCG Qualitative NEGATIVE (NEGATIVE); Internal Control Within Normal Limits
[2024-09-09 17:26] LABS: Lactate/Lactic Acid 0.8 mmol/L (0.4-2.0)
[2024-09-09 17:28] LABS: Erythrocyte Sedimentation Rate 16 mm/hr (<=20)
[2024-09-09 17:32] LABS: Alanine Aminotransferase 31 U/L (14-59); Albumin Globulin Ratio 0.5; Albumin Level 1.8 g/dL (3.4-5.0); Alkaline Phosphatase 80 U/L (46-116); Anion Gap 13.6; Aspartate Amino Transferase 13 U/L (15-37); BUN Creatinine Ratio 9.3; Bilirubin Total 0.5 mg/dL (0.2-1.0); C Reactive Protein 1.44 mg/dL (<=0.50); Calcium 7.9 mg/dL (8.5-10.1); Carbon Dioxide 25.7 mmol/L (21.0-32.0); Chloride 101 mmol/L (98-107); Estimated GFR (African America >60 (>=60 mL/min/1.73m^2); Estimated GFR (Non-African Ame >60 (>=60 mL/min/1.73m^2); Globulin 3.6 g/dL; Glucose 78 mg/dL (74-106); Lipase <10.0 U/L (16.0-77.0); Potassium 3.3 mmol/L (3.5-5.1); Sodium 137 mmol/L (136-145); Total Protein 5.4 g/dL (6.4-8.2)
[2024-09-09 17:36] LABS: Bilirubin Urine SMALL (NEGATIVE); Blood Urine NEGATIVE (NEGATIVE); Clarity Urine SL CLOUDY (CLEAR); Color Urine DK. YELLOW (YELLOW); Glucose Urine UA NEGATIVE (NEGATIVE); Ketones Urine TRACE mg/dL (NEGATIVE); Leukocyte Esterase Urine TRACE (NEGATIVE); Nitrite Urine NEGATIVE (NEGATIVE); Protein Urine 30 mg/dL (NEG/TRACE); pH Urine 6.5 (5.0-9.0)
[2024-09-09 17:53] LABS: Bacteria Urine MODERATE #/HPF (NONE SEEN); Mucus Urine LARGE (NONE SEEN); RBC Urine 0-2 #/HPF (0-2); Squamous Epithelial Cell Urine FEW #/LPF (NONE/RARE)
[2024-09-09 17:54] LABS: Cast Seen? NONE SEEN #/LPF (NONE SEEN); Crystals Seen? None Seen #/HPF (None Seen); Transitional Epi Cells Urine RARE #/LPF (NONE SEEN); Urine Culture Indicated YES-FRMC
[2024-09-09] MEDS: METHYLPREDNISOLONE SOD SUCC PF 125 MG/2 ML VIAL IVP ×2 (18:01→23:51)
[2024-09-09 18:02] VITALS: BP 106/77; PULSE 77; O2SAT 98
[2024-09-09 18:06] LABS: Internal Control Within Normal Limits; Occult Blood Positive
[2024-09-09 18:51] VITALS: BP 108/78; PULSE 70; O2SAT 100
[2024-09-09 19:35] VITALS: BP 103/73; PULSE 71; TEMP 37.2; O2SAT 100
[2024-09-09] MEDS: DIPHENHYDRAMINE HCL 25 MG CAPSULE PO (20:41)
[2024-09-09] MEDS: DICYCLOMINE HCL 10 MG CAPSULE 20 MG PO (20:41)
[2024-09-09 22:20] VITALS: BP 97/76; PULSE 98; O2SAT 99
[2024-09-09 23:57] VITALS: BP 91/68; PULSE 75; O2SAT 97
[2024-09-10] VITALS (9 sets, daily range): BP systolic 91–124; BP diastolic 68–87; PULSE 52–75; TEMP 36.3–36.4; O2SAT 96–100; BMI 19.6
[2024-09-10] MEDS: MORPHINE SULFATE 4 MG/ML VIAL IV ×2 (02:38→06:39)
[2024-09-10] MEDS: METHYLPREDNISOLONE SOD SUCC PF 125 MG/2 ML VIAL IVP ×3 (06:07→17:56)
[2024-09-10] MEDS: DIPHENHYDRAMINE HCL 50 MG/ML VIAL 12.5 MG IVP (07:51)
--- NOTE | 2024-09-10 08:05 | P.HP_ITS ---
HPI H&P: HPI History of Present Illness Chief complaint: ABDOMINAL PAIN,BLOOD IN STOOL COLITIS [place] Narrative: Patient with a history of known Crohn's colitis, presented emergency room with increasing diarrhea and bloody stools, elevated CRP and leukocytosis consistent with acute exacerbation of Crohn's disease, case was discussed with [facility] and they did accept her for transfer, patient awaiting transfer When I saw patient in the emergency room, resting fairly comfortably in bed at rest, complaint is the abdominal pain and diarrhea, patient also concerned about C. difficile as it has been a change in odor in the last few days Opioid HPI Opioid Management Most Recent Pain and Opioid Data: Last Pain Scale 9 09/10/24 06:39 09/10/24 Last Pain Assessment 09/10/24 09:00 Last ED Pain Assessment 09/10/24 02:46 Last MAR Pain Assessment 09/10/24 06:39 Last ORT Total Score 14 09/10/24 08:11 09/10/24 Last ORT Risk Category High Risk 09/10/24 08:11 09/10/24 Review of Systems ROS Status of ROS 10 or more systems reviewed and unremark able except as noted in history and below [facility] Medical History (Updated 09/10/24 @ 10:01 by Adrian Pemberton MD) Hypomagnesemia ?E83.42 - Hypomagnesemia (ICD-10) Crohn's disease with rectal bleeding ?K50.911 - Crohn's disease, unspecified, with rectal bleeding (ICD-10) 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) Crohn's colitis ?K50.10 - Crohn's disease of large intestine without complications (ICD-10) Hypocalcemia ?E83.51 - Hypocalcemia (ICD-10) Rectal bleeding ?K62.5 - Hemorrhage of anus and rectum (ICD-10) Exacerbation of Crohn's disease ?K50.90 - Crohn's disease, unspecified, without complications (ICD-10) Abdominal pain ?R10.9 - Unspecified abdominal pain (ICD-10) Nausea and vomiting ?R11.2 - Nausea with vomiting, unspecified (ICD-10) Diarrhea ?R19.7 - Diarrhea, unspecified (ICD-10) Anxiety ?F41.9 - Anxiety disorder, unspecified (ICD-10) IBS (irritable bowel syndrome) ?K58.9 - Irritable bowel syndrome, unspecified (ICD-10) Crohn disease ?K50.90 - Crohn's disease, unspecified, without complications (ICD-10) Surgical History History of colostomy reversal ?Z98.890 - Other specified postprocedural states (ICD-10) History of colon resection ?Z90.49 - Acquired absence of other specified parts of digestive tract (ICD- 10) Social History Highest level of school completed/degree received: some college, no degree Little interest or pleasure in doing things: not at all Feeling down, depressed, or hopeless: not at all Meds Home Medications and Allergies Home Medications ?Medication ?Instructions ?Recorded ?Confirmed ?Type No Known Home Medications 09/09/24 09/09/24 History Allergies Allergy/AdvReac Type Severity Reaction Status Date / Time adhesive Allergy Intermediate Blister Verified 08/07/24 15:01 iron Allergy Intermediate Hives Verified 04/03/24 21:14 ketorolac (From Toradol) Allergy Intermediate hives Verified 04/03/24 21:14 Penicillins Allergy Intermediate Hives Verified 04/03/24 21:14 vancomycin Allergy Intermediate Hives Verified 04/03/24 21:14 tramadol AdvReac Intermediate JAW Verified 08/07/24 15:01 CLENCHING Exam Constitutional Vital Signs, click to edit/add: Last Vital Signs Temp 98.9 F 09/09/24 19:35 Pulse 54 L 09/10/24 07:49 Resp 20 09/10/24 07:49 BP 102/73 09/10/24 07:49 Pulse Ox 100 09/10/24 07:49 O2 Del Method Room Air 09/10/24 07:49 Documenting provider has reviewed patient's vital signs: yes Common normals: no apparent distress Respiratory Common normals: normal respiratory effort and no retractions Cardio Common normals: regular rate and regular rhythm GI Common normals: Normal to inspection, nondistended, normoactive bowel sounds present and soft to palpation; tender (Diffusely tender without rebound) Extremity Common normals: normal to inspection Results Labs Labs: Short CBC 09/09/24 Range/Units 16:47 WBC 12.0 H (4.0-11.0) 10^3/uL Hgb 9.7 L (12.0-16.0) g/dL Hct 31.2 L (36.0-48.0) % Plt Count 281 (150-450) 10^3/uL BMP 09/09/24 16:47 Sodium 137 Potassium 3.3 L Chloride 101 Carbon Dioxide 25.7 BUN 10.0 Creatinine 1.08 H Glucose 78 Calcium 7.9 L Liver Function 09/09/24 Range/Units 16:47 Total Bilirubin 0.5 (0.2-1.0) mg/dL AST 13 L (15-37) U/L ALT 31 (14-59) U/L Alkaline Phosphatase 80 (46-116) U/L Albumin 1.8 L (3.4-5.0) g/dL Urine 09/09/24 Range/Units 17:20 Urine Color Dk. yellow (YELLOW) Urine Clarity Sl cloudy (CLEAR) Urine pH 6.5 (5.0-9.0) Ur Specific [place] 1.020 (1.005-1.025) Urine Protein 30 A (NEG/TRACE) mg/dL Urine Glucose (UA) Negative (NEGATIVE) mg/dL Assessment and Plan Assessment and Plan (1) Failure of outpatient treatment: (2) Abdominal pain: (3) Hypomagnesemia: (4) Crohn's disease with rectal bleeding: Qualifiers: Gastrointestinal tract location: unspecified location Qualified Code( s): K50.911 - Crohn's disease, unspecified, with rectal bleeding (5) Anemia due to blood loss: (6) Diarrhea: (7) Anxiety: (8) Leukocytosis: (9) Hypokalemia: (10) Severe protein-calorie malnutrition: Plan Admission findings: Vital signs stable but has significant leukocytosis and hypokalemia with acute elevation in CRP consistent with acute exacerbation of Crohn's colitis, patient needs IV medical therapy and 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 Acute elevation in creatinine-will monitor p.o. intake, patient without emesis so far since in ER, if emesis occurs, will need IV fluids Severe protein calorie malnutrition-diet management and supplements Admission status: Patient admitted with increasing abdominal pain and diarrhea consistent with a acute exacerbation of her Crohn's colitis, medically necessary treatment will span 2 midnights. Inpatient status.
[2024-09-10 09:35] LABS: INR 1.18; Partial Thromboplastin Time 28.8 sec (22.3-36.2); Prothrombin Time 12.3 sec (9.0-11.6)
[2024-09-10 09:44] LABS: Magnesium 1.4 mg/dL (1.8-2.4)
[2024-09-10] MEDS: VALPROIC ACID INJ 500 MG in 0.9 % SODIUM CHLORIDE 50 ML 55 MG IV ×2 (09:44→22:37)
[2024-09-10] MEDS: 0.9 % SODIUM CHLORIDE 250 ML 10.417 ML IV (09:45)
[2024-09-10] MEDS: PANTOPRAZOLE SODIUM 40 MG VIAL IV (09:45)
[2024-09-10] MEDS: MAGNESIUM OXIDE 400 MG TABLET PO ×2 (10:29→21:52)
[2024-09-10] MEDS: HYDROMORPHONE HCL 1 MG/ML CARTRIDGE IVP ×4 (10:32→22:36)
[2024-09-10] MEDS: MAGNESIUM SULFATE IN WATER 4 GM/100 ML PIGGYBACK IV (10:56)
[2024-09-10 11:25] LABS: C. Difficile PCR NEGATIVE
[2024-09-10] MEDS: DIPHENHYDRAMINE HCL 50 MG/ML VIAL 25 MG IV ×3 (12:05→22:36)
[2024-09-10] MEDS: POTASSIUM CHLORIDE 40 MEQ in 0.9 % SODIUM CHLORIDE 250 ML 67.5 MEQ IV (12:57)
[2024-09-10] MEDS: VALPROIC ACID INJ 500 MG in 0.9 % SODIUM CHLORIDE 50 ML 50 MG IV (16:45)
[2024-09-10] MEDS: CALCIUM CARBONATE 500 MG (200MG ELEMENTAL) TAB CHEW PO (21:52)
[2024-09-11] MEDS: METHYLPREDNISOLONE SOD SUCC PF 125 MG/2 ML VIAL IVP ×2 (00:06→05:28)
[2024-09-11] MEDS: HYDROMORPHONE HCL 1 MG/ML CARTRIDGE IVP ×2 (02:42→06:48)
[2024-09-11] MEDS: DIPHENHYDRAMINE HCL 50 MG/ML VIAL 25 MG IV ×2 (02:50→06:48)
[2024-09-11 04:00] VITALS: BP 102/69; PULSE 60; TEMP 36.4; O2SAT 98
[2024-09-11] MEDS: VALPROIC ACID INJ 500 MG in 0.9 % SODIUM CHLORIDE 50 ML 55 MG IV (05:28)
[2024-09-11 05:54] LABS: Basophils Percent Auto 0.1 % (0.2-2.0); Hematocrit 29.4 % (36.0-48.0); Immature Granulocytes Abs Auto 0.21 10^3/uL (0.00-0.03); Lymphocytes Absolute Auto 2.5 10^3/uL (1.2-3.8); Lymphocytes Percent Auto 11.6 % (20.5-60.0); Mean Corpuscular HGB Conc 30.6 g/dL (29.9-35.2); Mean Corpuscular Hemoglobin 25.7 pg (26.7-34.0); Mean Platelet Volume 9.3 fL (9.5-13.5); Monocytes Absolute Auto 0.7 10^3/uL (0.3-0.8); Monocytes Percent Auto 3.2 % (1.7-12.0); Neutrophils Absolute Auto 18.2 10^3/uL (1.4-6.5); Neutrophils Percent Auto 84.1 % (43.0-75.0); Platelet Count 364 10^3/uL (150-450); Red Cell Distribution Width 19.3 % (11.0-15.0); White Blood Count 21.6 10^3/uL (4.0-11.0)
[2024-09-11 06:14] LABS: Anion Gap 13.6; BUN Creatinine Ratio 5.6; C Reactive Protein 0.71 mg/dL (<=0.50); Calcium 7.9 mg/dL (8.5-10.1); Carbon Dioxide 23.3 mmol/L (21.0-32.0); Chloride 104 mmol/L (98-107); Estimated GFR (African America >60 (>=60 mL/min/1.73m^2); Estimated GFR (Non-African Ame 52 (>=60 mL/min/1.73m^2); Glucose 301 mg/dL (74-106); Potassium 4.9 mmol/L (3.5-5.1); Sodium 136 mmol/L (136-145)
[2024-09-11 08:00] VITALS: BP 110/74; PULSE 68; TEMP 36.1; O2SAT 96
[2024-09-11] MEDS: MAGNESIUM OXIDE 400 MG TABLET PO (08:41)
[2024-09-11] MEDS: PANTOPRAZOLE SODIUM 40 MG VIAL IV (08:41)
[2024-09-11] MEDS: CALCIUM CARBONATE 500 MG (200MG ELEMENTAL) TAB CHEW PO (08:41)
[2024-09-11 10:10] VITALS: BMI 19.6
[2024-09-11] MEDS: DIPHENHYDRAMINE HCL 25 MG CAPSULE 50 MG PO (10:45)
[2024-09-11] MEDS: OXYCODONE HCL/ACETAMINOPHEN 5MG/325MG 1 TAB PO (10:45)
[2024-09-11 11:13] VITALS: O2SAT 96
--- NOTE | 2024-09-11 11:33 | CM.NOTE ---
Rounds made with Dr. Bill, pt will discharge to home today. Pt has increased appetite and less pain today. Pt will f/u with [facility] on September 19. Pt will discharge on P.O antibiotics and pain medication.
[2024-09-11] MEDS: HEPARIN SODIUM (PORCINE) PF LOCK FLUSH 500 UNIT/5 ML SYRINGE IV (11:59)
--- NOTE | 2024-09-11 12:07 | PM.DS1 ---
DS: Providers Provider Date of admission: 09/10/24 08:08 Primary care physician: [facility] Consults: 09/10/24 08:57 Consult to Pharmacy Routine Consulting Provider: Reason for consultation: Please [place] me when Med Rec is Updated Has provider been notified: No DS: Diagnosis Discharge Diagnosis (1) Exacerbation of Crohn's disease: (2) Abdominal pain: (3) Rectal bleeding: (4) Failure of outpatient treatment: (5) Anxiety: (6) Severe protein-calorie malnutrition: DS: Summary Hospital Course Hospital Course: Reason for admission: See ER note and H&P for details. 23 y/o female with history of Crohn's to ER with worsening symptoms. Recently with frequent flares and follows with GI at [facility]. Admitted 08/29-08/31 and discharged with cipro/flagyl and prednisone. Over past few days symptoms have worsened. Increased abdominal pain and bloody stool. Severe nausea and vomiting and to ER. CT with diffuse colitis. Hgb 9.7. Admitted for treatment. Hospital course: Started solu-medrol and pain medication. Improved faster than anticipated in hospital. Pain tolerable with medication. Nausea controlled and able to start oral intake. Adjusted to oral pain medication and did well. Mild abdominal pain but tolerable. Scheduled with GI next week. Wants to go home with medication until able to see GI. Discharge home. Will take prednisone tapered over 12 days. Use zofran and percocet PRN. Follow with GI as scheduled. Time Spent with Patient Time attestation: Total time spent providing and/or coordinating discharge services: Time spent: greater than 30 minutes Exam Constitutional Vital Signs, click to edit/add: Last Vital Signs Temp 97.0 F L 09/11/24 08:00 Pulse 68 09/11/24 08:00 Resp 16 09/11/24 08:00 BP 110/74 09/11/24 08:00 Pulse Ox 96 09/11/24 11:13 O2 Del Method Room Air 09/11/24 11:13 Documenting provider has reviewed patient's vital signs: yes Common normals: no apparent distress HENMT Common normals: normocephalic Eye Common normals: PERRL and EOMs intact bilaterally Respiratory Common normals: normal respiratory effort and clear to auscultation bilaterally Cardio Common normals: regular rate, regular rhythm, no gallops, no murmurs and no rub GI Common normals: Normal to inspection, nondistended, normoactive bowel sounds present and soft to palpation Palpation: tender (Mild diffuse TTP); no guarding Extremity Common normals: no pedal edema DS: Data Data Completed and Pending Labs on day of discharge: Labs from last 24 hours 09/11/24 05:18 WBC 21.6 H RBC 3.50 L Hgb 9.0 L Hct 29.4 L MCV 84.0 MCH 25.7 L MCHC 30.6 RDW 19.3 H Plt Count 364 MPV 9.3 L Neut % (Auto) 84.1 H Lymph % (Auto) 11.6 L [place] % (Auto) 3.2 Eos % (Auto) 0.0 L Baso % (Auto) 0.1 L Neut # (Auto) 18.2 H Lymph # (Auto) 2.5 [place] # (Auto) 0.7 Eos # (Auto) 0.0 Baso # (Auto) 0.0 Abs Immat Gran (auto) 0.21 H Imm/Tot Granulo (auto) 1.0 H Sodium 136 Potassium 4.9 Chloride 104 Carbon Dioxide 23.3 Anion Gap 13.6 BUN 7.0 Creatinine 1.26 H Est GFR ( Amer) >60 Est GFR (Non-Af Amer) 52 L BUN/Creatinine Ratio 5.6 Glucose 301 H Calcium 7.9 L C-Reactive Protein 0.71 H Preliminary micro results at discharge 09/09/24 17:20 Urine Culture - Preliminary Urine,Clean Catch Pending - Specimen sent to [facility] Discharge Plan Discharge Disposition: Home, Self-Care Condition: Good Discharge Medications: New oxycodone-acetaminophen 5-325 mg tablet 1 tab PO QID PRN (Reason: pain) 5 Days Qty: 20 0RF ondansetron 4 mg tablet,disintegrating 4 mg PO Q6H PRN (Reason: nausea and vomiting) Qty: 30 0RF prednisone 10 mg tablets,dose pack 10 mg PO DAILY Qty: 39 0RF Rx Instructions: 6 PO daily x 3 days, then 4 PO daily x 3 days, then 2 PO daily x 3 days, then 1 PO daily x 3 days diphenhydramine HCl 50 mg capsule 50 mg PO Q6H PRN (Reason: itching) Qty: 60 0RF Activity: resume usual activities as tolerated Diet: advance to your usual diet Print Language: Greenlandic Patient Instructions: Oxycodone/Acetaminophen (By mouth), Prednisone (By mouth), Diphenhydramine (By mouth), Ondansetron (By mouth) Forms: Portal Instructions Follow Up Appointments: September 25 @ 9am with [place] [id number] Naresh Barnes [phone] Keep scheduled appointments with [facility]
--- NOTE | 2024-09-12 14:51 | CM.DCFOLLOWU ---
Person spoke with: Renee How are you feeling? Legs swelling How is your pain? Still having abdominal pain Did you understand your discharge instructions? Yes Do you have any questions about your discharge instructions? No Were you given any prescriptions at discharge? Yes Were you able to get your prescriptions filled? Yes Do you understand how to take your medications as ordered? Yes Do you have any questions about your follow up appointment and do you plan to keep your follow up appointment? I have appt scheduled with [facility] on September 21- encouraged pt to call to see if appt could be moved up or may need to come back to ER Is there anything else that you would like to discuss? No Questions/Comments/Concerns/Other:
--- NOTE | 2024-09-13 13:36 | CM.NOTE ---
Called in Priscilla to [facility] for positive urine culture. Dr. Bill given results and Revenue Officer instructed to call in Macrobid 100mg BID x7 days dispense #14. 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
== END 2024-09-11 12:34 | disposition home or self-care (01) | DRG 245 ==
LOC: ER 22:06 → MS 09-10 08:11
PROVIDERS: Family Medicine; Physician Assistant; Admitting Provider Family Medicine; Emergency Provider Emergency Medicine; Visit Provider Family Medicine
DX: K50.911 Crohn's disease, unspecified, with rectal bleeding (principal); E43 Unspecified severe protein-calorie malnutrition; D62 Acute posthemorrhagic anemia; F41.9 Anxiety disorder, unspecified; E87.6 Hypokalemia; Z68.1 Body mass index [BMI] 19.9 or less, adult; Z88.0 Allergy status to penicillin; Z88.1 Allergy status to other antibiotic agents; Z88.6 Allergy status to analgesic agent; Z88.8 Allergy status to other drugs, medicaments and biological substances; Z91.048 Other nonmedicinal substance allergy status; Z90.49 Acquired absence of other specified parts of digestive tract
CPT/HCPCS: 36415; 36591; 74176; 74177; 80048; 80053; 81001; 83605; 83690; 83735; 84703; 85025; 85610; 85652; 85730; 86140; 87045; 87046; 87086; 87150; 87186; 87427; 87493; 94667; 94761; 96361; 96374; 96375; 96376; 99285; G0328; J1171; J1200; J1642; J2270; J2405; J2919; J3475; J3480

== ENCOUNTER 2024-10-05 19:46 | Emergency (ER) | payer OTHER, SELFPAY ==
[2024-10-05 20:31] VITALS: BP 108/89; PULSE 90; TEMP 37.7; O2SAT 95; BMI 19.0
--- NOTE | 2024-10-05 21:34 | ED.ABDPAIN1 ---
HPI - Abdominal Pain General Chief Complaint: Abdominal Pain Stated Complaint: ABDOMINAL PAIN Time Seen by Provider: 10/05/24 20:40 Source: patient Mode of arrival: walk-in Limitations: no limitations History of Present Illness HPI narrative: patient well known to the department. History of Crohn's disease. States chronic diarrhea. States fever since yesterday and recurrent vomiting and abdominal pain today. Also states today she has experienced shortness of breath with exertion. No chest pain Related Data Previous Rx's ?Medication ?Instructions ?Recorded diphenhydramine HCl 50 mg capsule 50 mg PO Q6H PRN itching #60 caps 09/11/24 ondansetron 4 mg disintegrating 4 mg PO Q6H PRN nausea and 09/11/24 tablet vomiting #30 tabs oxycodone-acetaminophen 5 mg-325 1 tab PO QID PRN pain 5 days #20 09/11/24 mg tablet tabs prednisone 10 mg tablets in a dose 10 mg PO DAILY #39 ea 09/11/24 pack Allergies Allergy/AdvReac Type Severity Reaction Status Date / Time adhesive Allergy Intermediate Blister Verified 08/07/24 15:01 iron Allergy Intermediate Hives Verified 04/03/24 21:14 ketorolac (From Toradol) Allergy Intermediate hives Verified 04/03/24 21:14 Penicillins Allergy Intermediate Hives Verified 04/03/24 21:14 vancomycin Allergy Intermediate Hives Verified 04/03/24 21:14 tramadol AdvReac Intermediate JAW Verified 08/07/24 15:01 CLENCHING Review of Systems ROS Status of ROS 10 or more systems reviewed and unremarkable except as noted in history and below [facility] Medical History (Updated 10/06/24 @ 00:02 by Lance Gonzalez MD) Severe protein-calorie malnutrition ?E43 - Unspecified severe protein-calorie malnutrition (ICD-10) Exacerbation of Crohn's disease ?K50.90 - Crohn's disease, unspecified, without complications (ICD-10) Anxiety ?F41.9 - Anxiety disorder, unspecified (ICD-10) Leukocytosis ?D72.829 - Elevated white blood cell count, unspecified (ICD-10) Hypokalemia ?E87.6 - Hypokalemia (ICD-10) Hypomagnesemia ?E83.42 - Hypomagnesemia (ICD-10) Crohn's disease with rectal bleeding ?K50.911 - Crohn's disease, unspecified, with rectal bleeding (ICD-10) 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) Crohn's colitis ?K50.10 - Crohn's disease of large intestine without complications (ICD-10) Hypocalcemia ?E83.51 - Hypocalcemia (ICD-10) Exacerbation of Crohn's disease ?K50.90 - Crohn's disease, unspecified, without complications (ICD-10) Abdominal pain ?R10.9 - Unspecified abdominal pain (ICD-10) Nausea and vomiting ?R11.2 - Nausea with vomiting, unspecified (ICD-10) Diarrhea ?R19.7 - Diarrhea, unspecified (ICD-10) IBS (irritable bowel syndrome) ?K58.9 - Irritable bowel syndrome, unspecified (ICD-10) Crohn disease ?K50.90 - Crohn's disease, unspecified, without complications (ICD-10) Surgical History History of colostomy reversal ?Z98.890 - Other specified postprocedural states (ICD-10) History of colon resection ?Z90.49 - Acquired absence of other specified parts of digestive tract (ICD-10) Social History Highest level of school completed/degree received: some college, no degree Little interest or pleasure in doing things: not at all Feeling down, depressed, or hopeless: not at all Exam Constitutional Vital Signs, click to edit/add: Last Vital Signs Temp 100 F 10/05/24 20:31 Pulse 100 H 10/05/24 23:14 Resp 16 10/05/24 23:14 BP 109/82 10/05/24 23:14 Pulse Ox 99 10/05/24 23:14 O2 Del Method Room Air 10/05/24 23:14 Common normals: no apparent distress, average body habitus, oriented x3, no limitations, healthy appearing, alert and well nourished [facility] Common normals: normocephalic and head/scalp atraumatic Eye Common normals: PERRL and EOMs intact bilaterally Respiratory Common normals: normal respiratory effort, no retractions and no use of accessory muscles Cardio Common normals: no JVD, regular rate, regular rhythm and S1 normal heart sound GI Other: abdomen is flat. Diffuse nonspecific tenderness. no guarding Extremity Common normals: normal to inspection and full ROM Neuro Common normals: oriented x3, CN's II-XII intact bilaterally, moves all extremities and no focal motor deficits Psych Appearance: grossly normal Course Vital Signs Vital signs: Vital Signs Temperature 100 F 10/05/24 20:31 Pulse Rate 90 10/05/24 20:31 Respiratory Rate 16 10/05/24 20:31 Blood Pressure 108/89 10/05/24 20:31 Pulse Oximetry 95 10/05/24 20:31 Oxygen Delivery Method Room Air 10/05/24 20:31 Temperature 100 F 10/05/24 20:31 Pulse Rate 100 H 10/05/24 23:14 Respiratory Rate 16 10/05/24 23:14 Blood Pressure 109/82 10/05/24 23:14 Pulse Oximetry 99 10/05/24 23:14 Oxygen Delivery Method Room Air 10/05/24 23:14 MDM - Abdominal Pain MDM Narrative Medical decision making narrative: patient presents complaining of vomiting and abdominal pain related to her Crohn's disease. also has diarrhea but this is chronic. Exam unremarkable except nonspecific gen. tenderness without guarding. labs with WBC 10.5 and Hgb 9.6 which is improved from past visits . BMP without evidence of dehydration abdominal film without acute findings. Patient hydrated in the department. Treated with IV zofran. 2mg Morphine and tylenol. Discharged home in improved and stable condition Lab Data Labs: Lab Results 10/05/24 Range/Units 21:50 WBC 10.5 (4.0-11.0) 10^3/uL RBC 3.25 L (4.20-5.40) 10^6/uL Hgb 9.6 L (12.0-16.0) g/dL Hct 30.1 L (36.0-48.0) % MCV 92.6 (81.0-99.0) fL MCH 29.5 (26.7-34.0) pg MCHC 31.9 (29.9-35.2) g/dL RDW 24.1 H (11.0-15.0) % Plt Count 206 (150-450) 10^3/uL MPV 9.1 L (9.5-13.5) fL Neut % (Auto) 68.6 (43.0-75.0) % Lymph % (Auto) 23.6 (20.5-60.0) % [place] % (Auto) 5.6 (1.7-12.0) % Eos % (Auto) 1.5 (0.9-7.0) % Baso % (Auto) 0.4 (0.2-2.0) % Neut # (Auto) 7.2 H (1.4-6.5) 10^3/uL Lymph # (Auto) 2.5 (1.2-3.8) 10^3/uL [place] # (Auto) 0.6 (0.3-0.8) 10^3/uL Eos # (Auto) 0.2 (0.0-0.7) 10^3/uL Baso # (Auto) 0.0 (0.0-0.1) 10^3/uL Abs Immat Gran (auto) 0.03 (0.00-0.03) 10^3/uL Imm/Tot Granulo (auto) 0.3 (0.0-0.5) % Sodium 136 (136-145) mmol/L Potassium 3.5 (3.5-5.1) mmol/L Chloride 104 (98-107) mmol/L Carbon Dioxide 23.0 (21.0-32.0) mmol/L Anion Gap 12.5 BUN 11.0 (7.0-18.0) mg/dL Creatinine 0.75 (0.55-1.02) mg/dL Est GFR ( Amer) >60 (>=60 mL/min/1.73m^2) Est GFR (Non-Af Amer) >60 (>=60 mL/min/1.73m^2) BUN/Creatinine Ratio 14.7 Glucose 82 (74-106) mg/dL Lactate 0.8 (0.4-2.0) mmol/L Calcium 7.2 L (8.5-10.1) mg/dL Total Bilirubin 0.5 (0.2-1.0) mg/dL AST 15 (15-37) U/L ALT 23 (14-59) U/L Alkaline Phosphatase 139 H (46-116) U/L Total Protein 5.1 L (6.4-8.2) g/dL Albumin 1.9 L (3.4-5.0) g/dL Globulin 3.2 g/dL Albumin/Globulin Ratio 0.6 Lipase <10.0 L (16.0-77.0) U/L Discharge Plan Discharge Chief Complaint: Abdominal Pain Clinical Impression: Abdominal pain, Crohn disease Patient Disposition: Home, Self-Care Prescriptions / Home Meds: No Action oxycodone-acetaminophen 5-325 mg tablet 1 tab PO QID PRN (Reason: pain) 5 Days Qty: 20 0RF ondansetron 4 mg tablet,disintegrating 4 mg PO Q6H PRN (Reason: nausea and vomiting) Qty: 30 0RF prednisone 10 mg tablets,dose pack 10 mg PO DAILY Qty: 39 0RF Rx Instructions: 6 PO daily x 3 days, then 4 PO daily x 3 days, then 2 PO daily x 3 days, then 1 PO daily x 3 days diphenhydramine HCl 50 mg capsule 50 mg PO Q6H PRN (Reason: itching) Qty: 60 0RF Print Language: [place] Instructions: Crohn Disease (ED), Abdominal Pain (ED) Referrals: [facility] [Primary Care Provider] - 1 week
[2024-10-05 22:02] LABS: Basophils Percent Auto 0.4 % (0.2-2.0); Eosinophils Absolute Auto 0.2 10^3/uL (0.0-0.7); Eosinophils Percent Auto 1.5 % (0.9-7.0); Hematocrit 30.1 % (36.0-48.0); Hemoglobin 9.6 g/dL (12.0-16.0); Immature Granulocytes Abs Auto 0.03 10^3/uL (0.00-0.03); Immature Granulocytes Pct Auto 0.3 % (0.0-0.5); Lymphocytes Absolute Auto 2.5 10^3/uL (1.2-3.8); Lymphocytes Percent Auto 23.6 % (20.5-60.0); Mean Corpuscular HGB Conc 31.9 g/dL (29.9-35.2); Mean Corpuscular Hemoglobin 29.5 pg (26.7-34.0); Mean Corpuscular Volume 92.6 fL (81.0-99.0); Mean Platelet Volume 9.1 fL (9.5-13.5); Monocytes Absolute Auto 0.6 10^3/uL (0.3-0.8); Monocytes Percent Auto 5.6 % (1.7-12.0); Neutrophils Absolute Auto 7.2 10^3/uL (1.4-6.5); Neutrophils Percent Auto 68.6 % (43.0-75.0); Platelet Count 206 10^3/uL (150-450); Red Cell Distribution Width 24.1 % (11.0-15.0); White Blood Count 10.5 10^3/uL (4.0-11.0)
[2024-10-05] MEDS: ONDANSETRON PF 4 MG/2 ML VIAL IV (22:04)
[2024-10-05] MEDS: MORPHINE SULFATE 2 MG/ML SYRINGE IV (22:04)
[2024-10-05] MEDS: 0.9 % SODIUM CHLORIDE 1,000 ML 999 ML IV (22:05)
[2024-10-05 22:25] LABS: Red Blood Count 3.25 10^6/uL (4.20-5.40)
[2024-10-05 22:30] LABS: Alanine Aminotransferase 23 U/L (14-59); Albumin Globulin Ratio 0.6; Albumin Level 1.9 g/dL (3.4-5.0); Alkaline Phosphatase 139 U/L (46-116); Anion Gap 12.5; Aspartate Amino Transferase 15 U/L (15-37); BUN Creatinine Ratio 14.7; Bilirubin Total 0.5 mg/dL (0.2-1.0); Calcium 7.2 mg/dL (8.5-10.1); Chloride 104 mmol/L (98-107); Estimated GFR (African America >60 (>=60 mL/min/1.73m^2); Estimated GFR (Non-African Ame >60 (>=60 mL/min/1.73m^2); Globulin 3.2 g/dL; Glucose 82 mg/dL (74-106); Lipase <10.0 U/L (16.0-77.0); Potassium 3.5 mmol/L (3.5-5.1); Sodium 136 mmol/L (136-145); Total Protein 5.1 g/dL (6.4-8.2)
[2024-10-05 22:32] LABS: Lactate/Lactic Acid 0.8 mmol/L (0.4-2.0)
[2024-10-05 23:14] VITALS: BP 109/82; PULSE 100; O2SAT 99
[2024-10-05] MEDS: ACETAMINOPHEN 500 MG TABLET 1000 MG PO (23:56)
--- NOTE | 2024-10-06 00:26 | PC.NURSE ---
Flushed with only saline per patient.
== END 2024-10-06 01:55 | disposition home or self-care (01) ==
PROVIDERS: Emergency Provider Internal Medicine
DX: R10.9 Unspecified abdominal pain (principal); K50.90 Crohn's disease, unspecified, without complications; R50.9 Fever, unspecified
CPT/HCPCS: 36415; 74022; 80053; 83605; 83690; 85025; 96361; 96374; 96375; 99285; J2270; J2405

== ENCOUNTER 2024-10-17 04:13 | Emergency (ER) | payer OTHER, SELFPAY ==
[2024-10-17] VITALS (17 sets, daily range): BP systolic 104–106; BP diastolic 78–82; PULSE 63–77; TEMP 36.7; O2SAT 86–100; BMI 20.5
--- NOTE | 2024-10-17 04:32 | PC.NURSE ---
complains of abdomen pain for the past 2 days ago but 2 hour this abdomen pain has increased. this patient voices no other complaints and shows no signs of distress
--- NOTE | 2024-10-17 04:36 | ED.ABDPAIN1 ---
HPI - Abdominal Pain General Chief Complaint: Abdominal Pain Stated Complaint: ABDOMINAL PAIN Time Seen by Provider: 10/17/24 04:31 Source: patient Mode of arrival: walk-in Limitations: no limitations History of Present Illness HPI narrative: history of crohn's disease. Has chronic diarrhea. Presents this AM complaining of recurrent vomiting and abdominal pain. Also complains of paresthesia of her arms and hands uncontrollably dequan. No fever Related Data Previous Rx's ?Medication ?Instructions ?Recorded diphenhydramine HCl 50 mg capsule 50 mg PO Q6H PRN itching #60 caps 09/11/24 ondansetron 4 mg disintegrating 4 mg PO Q6H PRN nausea and 09/11/24 tablet vomiting #30 tabs oxycodone-acetaminophen 5 mg-325 1 tab PO QID PRN pain 5 days #20 09/11/24 mg tablet tabs prednisone 10 mg tablets in a dose 10 mg PO DAILY #39 ea 09/11/24 pack Allergies Allergy/AdvReac Type Severity Reaction Status Date / Time adhesive Allergy Intermediate Blister Verified 08/07/24 15:01 iron Allergy Intermediate Hives Verified 04/03/24 21:14 ketorolac (From Toradol) Allergy Intermediate hives Verified 04/03/24 21:14 Penicillins Allergy Intermediate Hives Verified 04/03/24 21:14 vancomycin Allergy Intermediate Hives Verified 04/03/24 21:14 tramadol AdvReac Intermediate JAW Verified 08/07/24 15:01 CLENCH[place] Review of Systems ROS Status of ROS 10 or more systems reviewed and unremarkable except as noted in history and below [facility] Medical History (Updated 10/17/24 @ 06:31 by Lance Gonzalez MD) Severe protein-calorie malnutrition ?E43 - Unspecified severe protein-calorie malnutrition (ICD-10) Exacerbation of Crohn's disease ?K50.90 - Crohn's disease, unspecified, without complications (ICD-10) Anxiety ?F41.9 - Anxiety disorder, unspecified (ICD-10) Leukocytosis ?D72.829 - Elevated white blood cell count, unspecified (ICD-10) Hypokalemia ?E87.6 - Hypokalemia (ICD-10) Hypomagnesemia ?E83.42 - Hypomagnesemia (ICD-10) Crohn's disease with rectal bleeding ?K50.911 - Crohn's disease, unspecified, with rectal bleeding (ICD-10) 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) Crohn's colitis ?K50.10 - Crohn's disease of large intestine without complications (ICD-10) Hypocalcemia ?E83.51 - Hypocalcemia (ICD-10) Exacerbation of Crohn's disease ?K50.90 - Crohn's disease, unspecified, without complications (ICD-10) Abdominal pain ?R10.9 - Unspecified abdominal pain (ICD-10) Nausea and vomiting ?R11.2 - Nausea with vomiting, unspecified (ICD-10) Diarrhea ?R19.7 - Diarrhea, unspecified (ICD-10) IBS (irritable bowel syndrome) ?K58.9 - Irritable bowel syndrome, unspecified (ICD-10) Crohn disease ?K50.90 - Crohn's disease, unspecified, without complications (ICD-10) Surgical History History of colostomy reversal ?Z98.890 - Other specified postprocedural states (ICD-10) History of colon resection ?Z90.49 - Acquired absence of other specified parts of digestive tract (ICD-10) Social History Highest level of school completed/degree received: some college, no degree Little interest or pleasure in doing things: not at all Feeling down, depressed, or hopeless: not at all Exam Constitutional Vital Signs, click to edit/add: Last Vital Signs Temp 98.0 F 10/17/24 04:17 Pulse 63 10/17/24 06:00 Resp 16 10/17/24 06:00 BP 106/78 10/17/24 06:00 Pulse Ox 100 10/17/24 06:00 O2 Del Method Room Air 10/17/24 04:17 Common normals: no apparent distress, oriented x3, no limitations, healthy appearing, alert and well nourished HENMT Other: healing abrasions of her face Eye Common normals: PERRL and EOMs intact bilaterally Respiratory Common normals: normal respiratory effort, no retractions, no use of accessory muscles and clear to auscultation bilaterally Cardio Common normals: regular rate, regular rhythm, S1 normal heart sound and S2 normal heart sound GI Other: nonspecific gen tenderness. no guarding Extremity Common normals: normal to inspection and full ROM Neuro Common normals: oriented x3, CN's II-XII intact bilaterally and moves all extremities Psych Appearance: grossly normal Course Vital Signs Vital signs: Vital Signs Temperature 98.0 F 10/17/24 04:17 Pulse Rate 77 10/17/24 04:17 Respiratory Rate 17 10/17/24 04:17 Blood Pressure 106/80 10/17/24 04:17 Pulse Oximetry 100 10/17/24 04:17 Oxygen Delivery Method Room Air 10/17/24 04:17 Temperature 98.0 F 10/17/24 04:17 Pulse Rate 63 10/17/24 06:00 Respiratory Rate 16 10/17/24 06:00 Blood Pressure 106/78 10/17/24 06:00 Pulse Oximetry 100 10/17/24 06:00 Oxygen Delivery Method Room Air 10/17/24 04:17 MDM - Abdominal Pain MDM Narrative Medical decision making narrative: patient presents complaining of generalized paresthesia, spontaneous closing of her hands and Crohns disease. Has chronic diarrhea. Presented complaining of pain and vomiting . states vomiting started this AM. UA sp gravity without evidence of dehydration. Patient has mild anemia which is chronic for her. Labs also revealed hypomagnesemia and hypocalcemia. Abdominal xray per my review without sign of obstuction. potassium 3.3. Both magnesium and calcium supplemented. Patient improved and discharged home . Given prescription of Magnesium and calcium and advised to follow up with her doctor this week to manage her abnormal calcium and magnesium patient has healing superficial abrasions on her face. states she fell a few days ago. They appear to be healing without sign of infection Lab Data Labs: Lab Results 10/17/24 10/17/24 Range/Units 04:20 04:55 WBC 11.5 H (4.0-11.0) 10^3/uL RBC 2.77 L (4.20-5.40) 10^6/uL Hgb 8.3 L (12.0-16.0) g/dL Hct 25.4 L (36.0-48.0) % MCV 91.7 (81.0-99.0) fL MCH 30.0 (26.7-34.0) pg MCHC 32.7 (29.9-35.2) g/dL RDW 20.9 H (11.0-15.0) % Plt Count 299 (150-450) 10^3/uL MPV 8.4 L (9.5-13.5) fL Neut % (Auto) 63.3 (43.0-75.0) % Lymph % (Auto) 28.1 (20.5-60.0) % [place] % (Auto) 7.5 (1.7-12.0) % Eos % (Auto) 0.2 L (0.9-7.0) % Baso % (Auto) 0.1 L (0.2-2.0) % Neut # (Auto) 7.3 H (1.4-6.5) 10^3/uL Lymph # (Auto) 3.2 (1.2-3.8) 10^3/uL [place] # (Auto) 0.9 H (0.3-0.8) 10^3/uL Eos # (Auto) 0.0 (0.0-0.7) 10^3/uL Baso # (Auto) 0.0 (0.0-0.1) 10^3/uL Abs Immat Gran (auto) 0.09 H (0.00-0.03) 10^3/uL Imm/Tot Granulo (auto) 0.8 H (0.0-0.5) % Sodium 144 (136-145) mmol/L Potassium 3.3 L (3.5-5.1) mmol/L Chloride 105 (98-107) mmol/L Carbon Dioxide 30.4 (21.0-32.0) mmol/L Anion Gap 11.9 BUN 8.0 (7.0-18.0) mg/dL Creatinine 0.79 (0.55-1.02) mg/dL Est GFR ( Amer) >60 (>=60 mL/min/1.73m^2) Est GFR (Non-Af Amer) >60 (>=60 mL/min/1.73m^2) BUN/Creatinine Ratio 10.1 Glucose 86 (74-106) mg/dL Lactate 1.9 (0.4-2.0) mmol/L Calcium 5.9 L* (8.5-10.1) mg/dL Magnesium 0.6 L* (1.8-2.4) mg/dL Total Bilirubin 0.3 (0.2-1.0) mg/dL AST 9 L (15-37) U/L ALT 23 (14-59) U/L Alkaline Phosphatase 79 (46-116) U/L Total Protein 5.0 L (6.4-8.2) g/dL Albumin 1.9 L (3.4-5.0) g/dL Globulin 3.1 g/dL Albumin/Globulin Ratio 0.6 Lipase <10.0 L (16.0-77.0) U/L Urine Color Lt. yellow (YELLOW) Urine Clarity Clear (CLEAR) Urine pH 6.5 (5.0-9.0) Ur Specific [place] <=1.005 A (1.005-1.025) Urine Protein Negative (NEG/TRACE) mg/dL Urine Glucose (UA) Negative (NEGATIVE) mg/dL Urine Ketones Negative (NEGATIVE) mg/dL Urine Occult Blood Negative (NEGATIVE) Urine Nitrite Negative (NEGATIVE) Urine Bilirubin Negative (NEGATIVE) Urine Urobilinogen 0.2 (0.2-1.0) EU/dL Ur Leukocyte Esterase Negative (NEGATIVE) Urine RBC None seen (0-2) #/HPF Urine WBC 0-2 A (NONE SEEN) #/HPF Ur Squamous Epith Cells Rare (NONE/RARE) #/LPF Urine Crystals None seen (None Seen) #/HPF Urine Bacteria None seen (NONE SEEN) #/HPF Urine Casts None seen (NONE SEEN) #/LPF Urine Mucus None seen (NONE SEEN) Ur Culture Indicated? No Discharge Plan Discharge Chief Complaint: Abdominal Pain Clinical Impression: Abdominal pain, Hypomagnesemia, Hypocalcemia Patient Disposition: Home, Self-Care Prescriptions / Home Meds: No Action oxycodone-acetaminophen 5-325 mg tablet 1 tab PO QID PRN (Reason: pain) 5 Days Qty: 20 0RF ondansetron 4 mg tablet,disintegrating 4 mg PO Q6H PRN (Reason: nausea and vomiting) Qty: 30 0RF prednisone 10 mg tablets,dose pack 10 mg PO DAILY Qty: 39 0RF Rx Instructions: 6 PO daily x 3 days, then 4 PO daily x 3 days, then 2 PO daily x 3 days, then 1 PO daily x 3 days diphenhydramine HCl 50 mg capsule 50 mg PO Q6H PRN (Reason: itching) Qty: 60 0RF Print Language: Kazakh Instructions: Hypocalcemia (ED), Abdominal Pain (ED), Hypomagnesemia (ED) Additional Instructions: follow up with your doctor in the next couple of days to recheck your labs Referrals: [facility] [Primary Care Provider] - 1 week
[2024-10-17 04:50] LABS: Bilirubin Urine NEGATIVE (NEGATIVE); Blood Urine NEGATIVE (NEGATIVE); Clarity Urine CLEAR (CLEAR); Color Urine LT. YELLOW (YELLOW); Glucose Urine UA NEGATIVE (NEGATIVE); Ketones Urine NEGATIVE (NEGATIVE); Leukocyte Esterase Urine NEGATIVE (NEGATIVE); Nitrite Urine NEGATIVE (NEGATIVE); Protein Urine NEGATIVE (NEG/TRACE); Specific Gravity Urine <=1.005 (1.005-1.025); Urobilinogen Urine 0.2 EU/dL (0.2-1.0); pH Urine 6.5 (5.0-9.0)
[2024-10-17 04:56] LABS: Bacteria Urine NONE SEEN #/HPF (NONE SEEN); Cast Seen? NONE SEEN #/LPF (NONE SEEN); Crystals Seen? None Seen #/HPF (None Seen); Mucus Urine NONE SEEN (NONE SEEN); RBC Urine NONE SEEN #/HPF (0-2); Squamous Epithelial Cell Urine RARE #/LPF (NONE/RARE); Urine Culture Indicated NO; WBC Urine 0-2 #/HPF (NONE SEEN)
[2024-10-17 05:08] LABS: Basophils Percent Auto 0.1 % (0.2-2.0); Eosinophils Percent Auto 0.2 % (0.9-7.0); Hematocrit 25.4 % (36.0-48.0); Hemoglobin 8.3 g/dL (12.0-16.0); Immature Granulocytes Abs Auto 0.09 10^3/uL (0.00-0.03); Immature Granulocytes Pct Auto 0.8 % (0.0-0.5); Lymphocytes Absolute Auto 3.2 10^3/uL (1.2-3.8); Lymphocytes Percent Auto 28.1 % (20.5-60.0); Mean Corpuscular HGB Conc 32.7 g/dL (29.9-35.2); Mean Corpuscular Volume 91.7 fL (81.0-99.0); Mean Platelet Volume 8.4 fL (9.5-13.5); Monocytes Absolute Auto 0.9 10^3/uL (0.3-0.8); Monocytes Percent Auto 7.5 % (1.7-12.0); Neutrophils Absolute Auto 7.3 10^3/uL (1.4-6.5); Neutrophils Percent Auto 63.3 % (43.0-75.0); Platelet Count 299 10^3/uL (150-450); Red Blood Count 2.77 10^6/uL (4.20-5.40); Red Cell Distribution Width 20.9 % (11.0-15.0); White Blood Count 11.5 10^3/uL (4.0-11.0)
[2024-10-17] MEDS: 0.9 % SODIUM CHLORIDE 1,000 ML 999 ML IV (05:10)
[2024-10-17] MEDS: DIPHENHYDRAMINE HCL 25 MG CAPSULE PO (05:15)
[2024-10-17] MEDS: MORPHINE SULFATE 2 MG/ML SYRINGE IV (05:16)
[2024-10-17] MEDS: ONDANSETRON PF 4 MG/2 ML VIAL IV ×2 (05:16→06:59)
[2024-10-17 05:25] LABS: Alanine Aminotransferase 23 U/L (14-59); Albumin Globulin Ratio 0.6; Albumin Level 1.9 g/dL (3.4-5.0); Alkaline Phosphatase 79 U/L (46-116); Anion Gap 11.9; Aspartate Amino Transferase 9 U/L (15-37); BUN Creatinine Ratio 10.1; Bilirubin Total 0.3 mg/dL (0.2-1.0); Carbon Dioxide 30.4 mmol/L (21.0-32.0); Chloride 105 mmol/L (98-107); Estimated GFR (African America >60 (>=60 mL/min/1.73m^2); Estimated GFR (Non-African Ame >60 (>=60 mL/min/1.73m^2); Globulin 3.1 g/dL; Glucose 86 mg/dL (74-106); Lipase <10.0 U/L (16.0-77.0); Potassium 3.3 mmol/L (3.5-5.1); Sodium 144 mmol/L (136-145)
[2024-10-17 05:26] LABS: Calcium 5.9 mg/dL (8.5-10.1); Magnesium 0.6 mg/dL (1.8-2.4)
[2024-10-17 05:27] LABS: Lactate/Lactic Acid 1.9 mmol/L (0.4-2.0)
--- NOTE | 2024-10-17 05:33 | PC.NURSE ---
Dr Gonzalez has been updated about this patient critical calcium=5.9 and magnesium=0.6
[2024-10-17] MEDS: MAGNESIUM SULFATE IN WATER 2 GM/50 ML PREMIX IV (05:59)
[2024-10-17] MEDS: CALCIUM GLUCONATE 1,000 MG/10 ML VIAL 1000 MG IVP (05:59)
--- NOTE | 2024-10-17 06:15 | PC.NURSE ---
this patient sitting upright on the bed awake and alert watching a cooking show on her cell phone. this patient voices no concerns and shows no signs of distress
== END 2024-10-17 07:10 | disposition home or self-care (01) ==
PROVIDERS: Emergency Provider Internal Medicine
DX: R10.9 Unspecified abdominal pain (principal); E83.42 Hypomagnesemia; E83.51 Hypocalcemia; K50.90 Crohn's disease, unspecified, without complications; R20.2 Paresthesia of skin
CPT/HCPCS: 36415; 74019; 80053; 81001; 83605; 83690; 83735; 85025; 96361; 96374; 96375; 96376; 99284; J0612; J2270; J2405; J3475

== ENCOUNTER 2024-11-01 10:23 | Emergency (ER) | payer OTHER, SELFPAY ==
[2024-11-01 10:33] VITALS: BP 113/92; PULSE 105; TEMP 36.8; O2SAT 100; BMI 20.5
--- NOTE | 2024-11-01 10:39 | ED.GENADUL1 ---
HPI HPI - General Adult General Chief complaint: Abdominal Pain Stated complaint: ABDOMINAL PAIN VOMITING Time Seen by Provider: 11/01/24 10:25 History of Present Illness HPI narrative: 24-year-old female presents to the emergency department for 2-day history of abdominal pain and dry heaving. She states her pain is severe and she contacted her doctors in [place] and they told her to go to the emergency department. No fever or hematemesis. The pain is continuous and severe. She has a longstanding history of Crohn's disease. Related Data Home Medications ?Medication ?Instructions ?Recorded ?Confirmed albuterol sulfate 90 mcg/actuation 2 puff inhalation Q6H PRN 11/01/24 11/01/24 aerosol inhaler shortness of breath or wheezing magnesium oxide 400 mg (241.3 mg 400 mg PO QDAY PRN low magnesium 11/01/24 11/01/24 magnesium) tablet melatonin 3 mg tablet 6 mg PO .qhs PRN sleep 11/01/24 11/01/24 prednisone 10 mg tablets in a dose 20 mg PO DAILY 11/01/24 11/01/24 pack Previous Rx's ?Medication ?Instructions ?Recorded diphenhydramine HCl 50 mg capsule 50 mg PO Q6H PRN itching #60 caps 09/11/24 ondansetron 4 mg disintegrating 4 mg PO Q6H PRN nausea and 09/11/24 tablet vomiting #30 tabs fidaxomicin 200 mg tablet (Dificid) 200 mg PO BID 10 days #20 tabs 11/01/24 Allergies Allergy/AdvReac Type Severity Reaction Status Date / Time adhesive Allergy Intermediate Blister Verified 11/01/24 10:29 iron Allergy Intermediate Hives Verified 11/01/24 10:29 ketorolac (From Toradol) Allergy Intermediate hives Verified 11/01/24 10:29 Penicillins Allergy Intermediate Hives Verified 11/01/24 10:29 vancomycin Allergy Intermediate Hives Verified 11/01/24 10:29 tramadol AdvReac Intermediate JAW Verified 11/01/24 10:29 CLENCHING Opioid HPI Opioid Management Most Recent Opioid Data: Last Pain Scale 9 Today, 10:50 Last MAR Pain Assessment Today, 11:21 Last ORT Total Score 14 09/10/24, 08:11 Last ORT Risk Category High Risk 09/10/24, 08:11 Review of Systems ROS Narrative A ten point review of systems is negative except as noted above. [facility] Medical History (Updated 11/01/24 @ 12:52 by Mina Potts MD) Severe protein-calorie malnutrition ?E43 - Unspecified severe protein-calorie malnutrition (ICD-10) Exacerbation of Crohn's disease ?K50.90 - Crohn's disease, unspecified, without complications (ICD-10) Anxiety ?F41.9 - Anxiety disorder, unspecified (ICD-10) Leukocytosis ?D72.829 - Elevated white blood cell count, unspecified (ICD-10) Hypokalemia ?E87.6 - Hypokalemia (ICD-10) Hypomagnesemia ?E83.42 - Hypomagnesemia (ICD-10) Crohn's disease with rectal bleeding ?K50.911 - Crohn's disease, unspecified, with rectal bleeding (ICD-10) 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) Crohn's colitis ?K50.10 - Crohn's disease of large intestine without complications (ICD-10) Hypocalcemia ?E83.51 - Hypocalcemia (ICD-10) Exacerbation of Crohn's disease ?K50.90 - Crohn's disease, unspecified, without complications (ICD-10) Abdominal pain ?R10.9 - Unspecified abdominal pain (ICD-10) Nausea and vomiting ?R11.2 - Nausea with vomiting, unspecified (ICD-10) Diarrhea ?R19.7 - Diarrhea, unspecified (ICD-10) IBS (irritable bowel syndrome) ?K58.9 - Irritable bowel syndrome, unspecified (ICD-10) Crohn disease ?K50.90 - Crohn's disease, unspecified, without complications (ICD-10) Surgical History History of colostomy reversal ?Z98.890 - Other specified postprocedural states (ICD-10) History of colon resection ?Z90.49 - Acquired absence of other specified parts of digestive tract (ICD-10) Social History Highest level of school completed/degree received: some college, no degree Little interest or pleasure in doing things: not at all Feeling down, depressed, or hopeless: not at all Exam Narrative Exam Narrative: Nurses note and vital signs reviewed and patient is not hypoxic. General: The patient is rocking on the bed when I walk into the room Skin: Warm, dry, no pallor noted. There is no rash noted. Head: Normocephalic, atraumatic Eye: Normal conjunctiva, no drainage Ears, Nose, Mouth, and Throat: oral mucosa is moist. Nares patent. Cardiovascular: Regular Rate and Rhythm Respiratory: Patient is in no distress, no accessory muscle use, lungs are clear to auscultation, no wheezing, rales or rhonchi Back: non-tender GI: Diffuse tenderness present, no distention Musculoskeletal: The patient has no evidence of calf tenderness, no pitting edema, symmetrical pulses noted bilaterally Neurological: A&O, normal speech Psychiatric: Cooperative Constitutional Vital Signs, click to edit/add: Last Vital Signs Temp 98.3 F 11/01/24 10:33 Pulse 105 H 11/01/24 10:33 Resp 18 11/01/24 10:33 BP 113/92 H 11/01/24 10:33 Pulse Ox 100 11/01/24 10:33 O2 Del Method Room Air 11/01/24 10:33 Course Vital Signs Vital signs: Vital Signs Temperature 98.3 F 11/01/24 10:33 Pulse Rate 105 H 11/01/24 10:33 Respiratory Rate 18 11/01/24 10:33 Blood Pressure 113/92 H 11/01/24 10:33 Pulse Oximetry 100 11/01/24 10:33 Oxygen Delivery Method Room Air 11/01/24 10:33 Temperature 98.3 F 11/01/24 10:33 Pulse Rate 105 H 11/01/24 10:33 Respiratory Rate 18 11/01/24 10:33 Blood Pressure 113/92 H 11/01/24 10:33 Pulse Oximetry 100 11/01/24 10:33 Oxygen Delivery Method Room Air 11/01/24 10:33 Medical Decision Making [facility] Narrative Medical decision making narrative: WBC is normal. The patient had a positive C. difficile test at [facility] and she was prescribed vancomycin but she has not been taking it because of the side effect. I spoke to her GI physician, Dr. Steve who recommended the patient be prescribed Dificid. This has been accomplished and she is discharged home. She was given a single dose of morphine and Benadryl. Treatment diagnosis and follow-up were discussed with the patient. Differential Diagnosis Differential Diagnosis: Abdominal pain, C. difficile Lab Data Lab results reviewed: Yes I reviewed the patient's lab results Labs: Lab Results 11/01/24 Range/Units 10:47 WBC 7.8 (4.0-11.0) 10^3/uL RBC 2.91 L (4.20-5.40) 10^6/uL Hgb 8.5 L (12.0-16.0) g/dL Hct 26.8 L (36.0-48.0) % MCV 92.1 (81.0-99.0) fL MCH 29.2 (26.7-34.0) pg MCHC 31.7 (29.9-35.2) g/dL RDW 17.5 H (11.0-15.0) % Plt Count 283 (150-450) 10^3/uL MPV 9.0 L (9.5-13.5) fL Neut % (Auto) 69.2 (43.0-75.0) % Lymph % (Auto) 20.7 (20.5-60.0) % [place] % (Auto) 8.4 (1.7-12.0) % Eos % (Auto) 0.6 L (0.9-7.0) % Baso % (Auto) 0.3 (0.2-2.0) % Neut # (Auto) 5.4 (1.4-6.5) 10^3/uL Lymph # (Auto) 1.6 (1.2-3.8) 10^3/uL [place] # (Auto) 0.7 (0.3-0.8) 10^3/uL Eos # (Auto) 0.1 (0.0-0.7) 10^3/uL Baso # (Auto) 0.0 (0.0-0.1) 10^3/uL Abs Immat Gran (auto) 0.06 H (0.00-0.03) 10^3/uL Imm/Tot Granulo (auto) 0.8 H (0.0-0.5) % Sodium 138 (136-145) mmol/L Potassium 4.1 (3.5-5.1) mmol/L Chloride 106 (98-107) mmol/L Carbon Dioxide 24.6 (21.0-32.0) mmol/L Anion Gap 11.5 BUN 12.0 (7.0-18.0) mg/dL Creatinine 0.75 (0.55-1.02) mg/dL Est GFR ( Amer) >60 (>=60 mL/min/1.73m^2) Est GFR (Non-Af Amer) >60 (>=60 mL/min/1.73m^2) BUN/Creatinine Ratio 16.0 Glucose 100 (74-106) mg/dL Calcium 7.9 L (8.5-10.1) mg/dL Total Bilirubin 0.4 (0.2-1.0) mg/dL Direct Bilirubin 0.1 (0.0-0.2) mg/dL AST 13 L (15-37) U/L ALT 16 (14-59) U/L Alkaline Phosphatase 104 (46-116) U/L Total Protein 6.1 L (6.4-8.2) g/dL Albumin 2.3 L (3.4-5.0) g/dL Globulin 3.8 g/dL Albumin/Globulin Ratio 0.6 Amylase 58 (25-115) U/L Lipase <10.0 L (16.0-77.0) U/L Discharge Plan Discharge Chief Complaint: Abdominal Pain Clinical Impression: Abdominal pain, Clostridioides difficile infection Patient Disposition: Home, Self-Care Time of Disposition Decision: 12:50 Condition: Good Mode of Transportation: Private Vehicle Prescriptions / Home Meds: New Dificid 200 mg tablet 200 mg PO BID 10 Days Qty: 20 0RF No Action ondansetron 4 mg tablet,disintegrating 4 mg PO Q6H PRN (Reason: nausea and vomiting) Qty: 30 0RF diphenhydramine HCl 50 mg capsule 50 mg PO Q6H PRN (Reason: itching) Qty: 60 0RF albuterol sulfate 90 mcg/actuation HFA aerosol inhaler 2 puff INHALATION Q6H PRN (Reason: shortness of breath or wheezing) magnesium oxide 400 mg (241.3 mg magnesium) tablet 400 mg PO QDAY PRN (Reason: low magnesium) melatonin 3 mg tablet 6 mg PO .qhs PRN (Reason: sleep) prednisone 10 mg tablets,dose pack 20 mg PO DAILY Rx Instructions: 6 PO daily x 3 days, then 4 PO daily x 3 days, then 2 PO daily x 3 days, then 1 PO daily x 3 days Print Language: [place] Timorese Instructions: C. Diff (Clostridioides Difficile) Infection (ED), Abdominal Pain (ED) Referrals: [facility] [Primary Care Provider] - 1 week
[2024-11-01] MEDS: 0.9 % SODIUM CHLORIDE 1,000 ML 1000 ML IV (10:48)
[2024-11-01] MEDS: ONDANSETRON PF 4 MG/2 ML VIAL IV (10:54)
[2024-11-01 10:57] LABS: Basophils Percent Auto 0.3 % (0.2-2.0); Eosinophils Absolute Auto 0.1 10^3/uL (0.0-0.7); Eosinophils Percent Auto 0.6 % (0.9-7.0); Hematocrit 26.8 % (36.0-48.0); Hemoglobin 8.5 g/dL (12.0-16.0); Immature Granulocytes Abs Auto 0.06 10^3/uL (0.00-0.03); Immature Granulocytes Pct Auto 0.8 % (0.0-0.5); Lymphocytes Absolute Auto 1.6 10^3/uL (1.2-3.8); Lymphocytes Percent Auto 20.7 % (20.5-60.0); Mean Corpuscular HGB Conc 31.7 g/dL (29.9-35.2); Mean Corpuscular Hemoglobin 29.2 pg (26.7-34.0); Mean Corpuscular Volume 92.1 fL (81.0-99.0); Monocytes Absolute Auto 0.7 10^3/uL (0.3-0.8); Monocytes Percent Auto 8.4 % (1.7-12.0); Neutrophils Absolute Auto 5.4 10^3/uL (1.4-6.5); Neutrophils Percent Auto 69.2 % (43.0-75.0); Platelet Count 283 10^3/uL (150-450); Red Blood Count 2.91 10^6/uL (4.20-5.40); Red Cell Distribution Width 17.5 % (11.0-15.0); White Blood Count 7.8 10^3/uL (4.0-11.0)
[2024-11-01 11:16] LABS: Alanine Aminotransferase 16 U/L (14-59); Albumin Globulin Ratio 0.6; Albumin Level 2.3 g/dL (3.4-5.0); Alkaline Phosphatase 104 U/L (46-116); Anion Gap 11.5; Aspartate Amino Transferase 13 U/L (15-37); Bilirubin Direct 0.1 mg/dL (0.0-0.2); Bilirubin Total 0.4 mg/dL (0.2-1.0); Calcium 7.9 mg/dL (8.5-10.1); Carbon Dioxide 24.6 mmol/L (21.0-32.0); Chloride 106 mmol/L (98-107); Estimated GFR (African America >60 (>=60 mL/min/1.73m^2); Estimated GFR (Non-African Ame >60 (>=60 mL/min/1.73m^2); Globulin 3.8 g/dL; Glucose 100 mg/dL (74-106); Lipase <10.0 U/L (16.0-77.0); Potassium 4.1 mmol/L (3.5-5.1); Sodium 138 mmol/L (136-145); Total Protein 6.1 g/dL (6.4-8.2)
[2024-11-01 11:17] LABS: Amylase 58 U/L (25-115)
[2024-11-01] MEDS: DIPHENHYDRAMINE HCL 50 MG/ML VIAL 25 MG IVP (11:21)
[2024-11-01] MEDS: MORPHINE SULFATE 4 MG/ML VIAL IV (11:21)
[2024-11-01 13:23] VITALS: BP 109/82; PULSE 98; O2SAT 100
== END 2024-11-01 13:28 | disposition home or self-care (01) ==
PROVIDERS: Emergency Provider Emergency Medicine
DX: R10.9 Unspecified abdominal pain (principal); K50.90 Crohn's disease, unspecified, without complications; B96.89 Other specified bacterial agents as the cause of diseases classified elsewhere; Z90.49 Acquired absence of other specified parts of digestive tract
CPT/HCPCS: 36415; 36591; 80048; 80076; 82150; 83690; 85025; 96374; 96375; 99284; J1200; J2270; J2405

== ENCOUNTER 2024-11-16 20:24 | Inpatient (IN) | payer OTHER, SELFPAY ==
[2024-11-16] VITALS (20 sets, daily range): BP systolic 102; BP diastolic 88; PULSE 100–136; TEMP 36.7; O2SAT 99–100; BMI 18.3
--- NOTE | 2024-11-16 20:51 | ECG_ITS ---
[facility] Test Date: 2024-11-16 Pat Name: BONNIE JOHANSEN Department: Room: - Gender: Female [employer] Former: : 2000 Requested By: 0923 Order Number: [id number] Benedict MD: CASEY MOLINA M.D. Measurements Intervals Ethan Rate: 131 P: 75 OK: 140 QRS: 83 QRSD: 66 T: 90 QT: 278 QTc: 355 Interpretive Statements 1120 Sinus tachycardia [address] depression [address] & [place] abnormality 8305 Short QTc interval 9150 abnormal ECG Compared to ECG 02/23/2022 21:44:58 ST (T wave) deviation now present Electronically Signed On 11-17-2024 10:42:12 EDT by CASEY MOLINA M.D.
--- NOTE | 2024-11-16 20:57 | ED.GENADUL1 ---
Documented by User: Yoselyn Stephen 11/16/24 21:04 HPI HPI - General Adult General Chief complaint: Shortness of Breath/Dyspnea Stated complaint: short of breath, nausea Time Seen by Provider: 11/16/24 20:40 Source: patient Mode of arrival: walk-in History of Present Illness HPI narrative: 24-year-old female presents here with chief complaint of shortness of breath, nausea vomiting. Patient states she had 2 episodes of vomiting while she walked into the emergency room. She is seen here multiple times for abdominal pain. Last being 2 weeks ago. She states she began abdominal pain after vomiting earlier today. She has had a history of C. difficile recently. She states she did finish her course of antibiotics from that infection. Denies a known history of states she is not have any intercourse. Her abdomen is soft diffuse tenderness on examination. She is tachycardic. Medical history includes Crohn's, severe malnutrition, diarrhea, C. difficile. Related Data Home Medications ?Medication ?Instructions ?Recorded ?Confirmed albuterol sulfate 90 mcg/actuation 2 puff inhalation Q6H PRN 11/01/24 11/16/24 aerosol inhaler shortness of breath or wheezing magnesium oxide 400 mg (241.3 mg 400 mg PO QDAY PRN low magnesium 11/01/24 11/16/24 magnesium) tablet prednisone 10 mg tablets in a dose 20 mg PO DAILY 11/01/24 11/16/24 pack Previous Rx's ?Medication ?Instructions ?Recorded ondansetron 4 mg disintegrating 4 mg PO Q6H PRN nausea and 09/11/24 tablet vomiting #30 tabs Allergies Allergy/AdvReac Type Severity Reaction Status Date / Time adhesive Allergy Intermediate Blister Verified 11/01/24 10:29 iron Allergy Intermediate Hives Verified 11/01/24 10:29 ketorolac (From Toradol) Allergy Intermediate hives Verified 11/01/24 10:29 Penicillins Allergy Intermediate Hives Verified 11/01/24 10:29 vancomycin Allergy Intermediate Hives Verified 11/01/24 10:29 tramadol AdvReac Intermediate JAW Verified 11/01/24 10:29 CLENCHING Opioid HPI Opioid Management Most Recent Opioid Data: Last Pain Scale 9 11/16/24, 21:26 Last MAR Pain Assessment 11/16/24, 21:26 Last ORT Total Score 14 03/24/25, 08:11 Last ORT Risk Category High Risk 09/10/24, 08:11 Review of Systems ROS Status of ROS 10 or more systems reviewed and unremarkable except as noted in history and below [facility] Medical History (Updated 11/17/24 @ 02:41 by Rhett Walters) Severe protein-calorie malnutrition ?E43 - Unspecified severe protein-calorie malnutrition (ICD-10) Exacerbation of Crohn's disease ?K50.90 - Crohn's disease, unspecified, without complications (ICD-10) Anxiety ?F41.9 - Anxiety disorder, unspecified (ICD-10) Leukocytosis ?D72.829 - Elevated white blood cell count, unspecified (ICD-10) Hypokalemia ?E87.6 - Hypokalemia (ICD-10) Hypomagnesemia ?E83.42 - Hypomagnesemia (ICD-10) Crohn's disease with rectal bleeding ?K50.911 - Crohn's disease, unspecified, with rectal bleeding (ICD-10) 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) Crohn's colitis ?K50.10 - Crohn's disease of large intestine without complications (ICD-10) Hypocalcemia ?E83.51 - Hypocalcemia (ICD-10) Exacerbation of Crohn's disease ?K50.90 - Crohn's disease, unspecified, without complications (ICD-10) Abdominal pain ?R10.9 - Unspecified abdominal pain (ICD-10) Nausea and vomiting ?R11.2 - Nausea with vomiting, unspecified (ICD-10) Diarrhea ?R19.7 - Diarrhea, unspecified (ICD-10) IBS (irritable bowel syndrome) ?K58.9 - Irritable bowel syndrome, unspecified (ICD-10) Crohn disease ?K50.90 - Crohn's disease, unspecified, without complications (ICD-10) Surgical History History of colostomy reversal ?Z98.890 - Other specified postprocedural states (ICD-10) History of colon resection ?Z90.49 - Acquired absence of other specified parts of digestive tract (ICD-10) Social History Highest level of school completed/degree received: some college, no degree Little interest or pleasure in doing things: not at all Feeling down, depressed, or hopeless: not at all Exam Narrative Exam Narrative: All Systems are negative except as noted/marked.All systems reviewed and otherwise negative Nurses note and vital signs reviewed and patient is not hypoxic. General: The patient appears thin, not well kept Skin: Warm, dry, no pallor noted. There is no rash noted. Head: Normocephalic, atraumatic Eye: Normal conjunctiva, no drainage, EOMI. PERRL Ears, Nose, Mouth, and Throat: oral mucosa is moist. Nares patent. Mouth without vesicles. Ear canals patent. Tm's without Erythema Cardiovascular: tachycardia Regular Rate and Rhythm Respiratory: Patient is in no distress, no accessory muscle use, lungs are clear to auscultation, no wheezing, rales or rhonchi Back: non-tender, no CVA tenderness bilaterally to percussion. GI: diffuse tenderness, Normal bowel sounds, , no masses appreciated. No rebound, guarding, or rigidity noted. Musculoskeletal: The patient has no evidence of calf tenderness, no pitting edema, symmetrical pulses noted bilaterally Psychiatric: Cooperative Constitutional Vital Signs, click to edit/add: Last Vital Signs Temp 98.0 F 11/16/24 20:28 Pulse 102 H 11/17/24 00:13 Resp 16 11/17/24 00:13 BP 122/84 11/17/24 02:05 Pulse Ox 100 11/17/24 00:13 O2 Del Method Room Air 11/16/24 20:28 Course Vital Signs Vital signs: Vital Signs Temperature 98.0 F 11/16/24 20:28 Pulse Rate 136 H 11/16/24 20:28 Respiratory Rate 18 11/16/24 20:28 Blood Pressure 102/88 11/16/24 20:28 Pulse Oximetry 99 11/16/24 20:28 Oxygen Delivery Method Room Air 11/16/24 20:28 Temperature 98.0 F 11/16/24 20:28 Pulse Rate 102 H 11/17/24 00:13 Respiratory Rate 16 11/17/24 00:13 Blood Pressure 122/84 11/17/24 02:05 Pulse Oximetry 100 11/17/24 00:13 Oxygen Delivery Method Room Air 11/16/24 20:28 Medical Decision Making Medical Records Medical records reviewed: Yes I reviewed the patient's medical records Lab Data Lab results reviewed: Yes I reviewed the patient's lab results Labs: Lab Results 11/16/24 11/16/24 Range/Units 21:08 21:10 WBC 7.0 (4.0-11.0) 10^3/uL RBC 3.41 L (4.20-5.40) 10^6/uL Hgb 9.3 L (12.0-16.0) g/dL Hct 29.7 L (36.0-48.0) % MCV 87.1 (81.0-99.0) fL MCH 27.3 (26.7-34.0) pg MCHC 31.3 (29.9-35.2) g/dL RDW 15.8 H (11.0-15.0) % Plt Count 238 (150-450) 10^3/uL MPV 9.2 L (9.5-13.5) fL Neut % (Auto) 60.8 (43.0-75.0) % Lymph % (Auto) 27.8 (20.5-60.0) % [place] % (Auto) 9.4 (1.7-12.0) % Eos % (Auto) 1.0 (0.9-7.0) % Baso % (Auto) 0.4 (0.2-2.0) % Neut # (Auto) 4.2 (1.4-6.5) 10^3/uL Lymph # (Auto) 1.9 (1.2-3.8) 10^3/uL [place] # (Auto) 0.7 (0.3-0.8) 10^3/uL Eos # (Auto) 0.1 (0.0-0.7) 10^3/uL Baso # (Auto) 0.0 (0.0-0.1) 10^3/uL Abs Immat Gran (auto) 0.04 H (0.00-0.03) 10^3/uL Imm/Tot Granulo (auto) 0.6 H (0.0-0.5) % Sodium 137 (136-145) mmol/L Potassium 3.9 (3.5-5.1) mmol/L Chloride 101 (98-107) mmol/L Carbon Dioxide 25.9 (21.0-32.0) mmol/L Anion Gap 14.0 BUN 14.0 (7.0-18.0) mg/dL Creatinine 0.75 (0.55-1.02) mg/dL Est GFR ( Amer) >60 (>=60 mL/min/1.73m^2) Est GFR (Non-Af Amer) >60 (>=60 mL/min/1.73m^2) BUN/Creatinine Ratio 18.7 Glucose 84 (74-106) mg/dL Calcium 7.8 L (8.5-10.1) mg/dL Total Bilirubin 0.4 (0.2-1.0) mg/dL AST 45 H (15-37) U/L ALT 34 (14-59) U/L Alkaline Phosphatase 165 H (46-116) U/L Total Protein 5.8 L (6.4-8.2) g/dL Albumin 2.0 L (3.4-5.0) g/dL Globulin 3.8 g/dL Albumin/Globulin Ratio 0.5 Lipase <10.0 L (16.0-77.0) U/L Urine Color Yellow (YELLOW) Urine Clarity Slightly cloudy A (CLEAR) Urine pH 6.0 (5.0-9.0) Ur Specific [place] 1.025 (1.005-1.025) Urine Protein 100 A (NEG/TRACE) mg/dL Urine Glucose (UA) Negative (NEGATIVE) mg/dL Urine Ketones Trace A (NEGATIVE) mg/dL Urine Occult Blood Negative (NEGATIVE) Urine Nitrite Negative (NEGATIVE) Urine Bilirubin Small A (NEGATIVE) Urine Urobilinogen 1.0 (0.2-1.0) EU/dL Ur Leukocyte Esterase Negative (NEGATIVE) Urine RBC None seen (0-2) #/HPF Urine WBC 0-2 A (NONE SEEN) #/HPF Ur Squamous Epith Cells Moderate A (NONE/RARE) #/LPF Urine Crystals None seen (None Seen) #/HPF Urine Bacteria Trace A (NONE SEEN) #/HPF Urine Casts Seen A (NONE SEEN) #/LPF Hyaline Casts Few Urine Mucus None seen (NONE SEEN) Ur Culture Indicated? No Urine HCG, Qual Negative (NEGATIVE) ECG Data Interpretation: 2036 tachycardia with rate of 131 bpm, pr internval 140 ms, qrs duration 66ms. no stemi Discharge Plan Discharge Chief Complaint: Shortness of Breath/Dyspnea Clinical Impression: Crohn disease, Abdominal pain, Failure of outpatient treatment Patient Disposition: Admitted as Observation Time of Disposition Decision: 02:41 Documented by User: Rhett Romeo 11/17/24 02:41 HPI HPI - General Adult General Chief complaint: Shortness of Breath/Dyspnea Stated complaint: short of breath, nausea Time Seen by Provider: 11/16/24 20:40 Related Data Home Medications ?Medication ?Instructions ?Recorded ?Confirmed albuterol sulfate 90 mcg/actuation 2 puff inhalation Q6H PRN 11/01/24 11/16/24 aerosol inhaler shortness of breath or wheezing magnesium oxide 400 mg (241.3 mg 400 mg PO QDAY PRN low magnesium 11/01/24 11/16/24 magnesium) tablet prednisone 10 mg tablets in a dose 20 mg PO DAILY 11/01/24 11/16/24 pack Previous Rx's ?Medication ?Instructions ?Recorded ondansetron 4 mg disintegrating 4 mg PO Q6H PRN nausea and 09/11/24 tablet vomiting #30 tabs Allergies Allergy/AdvReac Type Severity Reaction Status Date / Time adhesive Allergy Intermediate Blister Verified 11/01/24 10:29 iron Allergy Intermediate Hives Verified 11/01/24 10:29 ketorolac (From Toradol) Allergy Intermediate hives Verified 11/01/24 10:29 Penicillins Allergy Intermediate Hives Verified 11/01/24 10:29 vancomycin Allergy Intermediate Hives Verified 11/01/24 10:29 tramadol AdvReac Intermediate JAW Verified 11/01/24 10:29 CLENCHING Opioid HPI Opioid Management Most Recent Opioid Data: Last Pain Scale 9 11/16/24, 21:26 Last MAR Pain Assessment 11/16/24, 21:26 Last ORT Total Score 14 09/10/24, 08:11 Last ORT Risk Category High Risk 09/10/24, 08:11 PFS PFSH Medical History (Updated 11/17/24 @ 02:41 by Rhett Walters) Severe protein-calorie malnutrition ?E43 - Unspecified severe protein-calorie malnutrition (ICD-10) Exacerbation of Crohn's disease ?K50.90 - Crohn's disease, unspecified, without complications (ICD-10) Anxiety ?F41.9 - Anxiety disorder, unspecified (ICD-10) Leukocytosis ?D72.829 - Elevated white blood cell count, unspecified (ICD-10) Hypokalemia ?E87.6 - Hypokalemia (ICD-10) Hypomagnesemia ?E83.42 - Hypomagnesemia (ICD-10) Crohn's disease with rectal bleeding ?K50.911 - Crohn's disease, unspecified, with rectal bleeding (ICD-10) 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) Crohn's colitis ?K50.10 - Crohn's disease of large intestine without complications (ICD-10) Hypocalcemia ?E83.51 - Hypocalcemia (ICD-10) Exacerbation of Crohn's disease ?K50.90 - Crohn's disease, unspecified, without complications (ICD-10) Abdominal pain ?R10.9 - Unspecified abdominal pain (ICD-10) Nausea and vomiting ?R11.2 - Nausea with vomiting, unspecified (ICD-10) Diarrhea ?R19.7 - Diarrhea, unspecified (ICD-10) IBS (irritable bowel syndrome) ?K58.9 - Irritable bowel syndrome, unspecified (ICD-10) Crohn disease ?K50.90 - Crohn's disease, unspecified, without complications (ICD-10) Surgical History History of colostomy reversal ?Z98.890 - Other specified postprocedural states (ICD-10) History of colon resection ?Z90.49 - Acquired absence of other specified parts of digestive tract (ICD-10) Social History Highest level of school completed/degree received: some college, no degree Little interest or pleasure in doing things: not at all Feeling down, depressed, or hopeless: not at all Exam Constitutional Vital Signs, click to edit/add: Last Vital Signs Temp 98.0 F 11/16/24 20:28 Pulse 102 H 11/17/24 00:13 Resp 16 11/17/24 00:13 BP 122/84 11/17/24 02:05 Pulse Ox 100 11/17/24 00:13 O2 Del Method Room Air 11/16/24 20:28 Course Vital Signs Vital signs: Vital Signs Temperature 98.0 F 11/16/24 20:28 Pulse Rate 136 H 11/16/24 20:28 Respiratory Rate 18 11/16/24 20:28 Blood Pressure 102/88 11/16/24 20:28 Pulse Oximetry 99 11/16/24 20:28 Oxygen Delivery Method Room Air 11/16/24 20:28 Temperature 98.0 F 11/16/24 20:28 Pulse Rate 102 H 11/17/24 00:13 Respiratory Rate 16 11/17/24 00:13 Blood Pressure 122/84 11/17/24 02:05 Pulse Oximetry 100 11/17/24 00:13 Oxygen Delivery Method Room Air 11/16/24 20:28 Medical Decision Making MDM Narrative Medical decision making narrative: Peripheral IV was established and urine obtained and sent for testing. Blood drawn and sent for evaluation. CT scan of the abdomen pelvis was obtained. We initially ordered this with IV contrast but the patient stated that she was allergic to IV contrast -this was not in her history but I did not want to take any chances and therefore got CT without contrast. CBC did not reveal any elevated white blood cell count. Hemoglobin is 9.3 -she has history of anemia and has required transfusions in the past does not meet criteria for transfusion at this time. Electrolytes are normal and BUN/creatinine are normal as well. LFTs revealed mild elevation of alk phos at 165 and AST at 45 with normal ALT. Total bilirubin is normal at 0.4. Lipase is negative. Urinalysis is contaminant with moderate squamous epithelia CT, according to the radiologist, revealed mild enteritis affecting the small bowel segments in the right lower quadrant just proximal to the surgical anastomosis most consistent with a mild active Crohn's disease. She has mild stranding identified adjacent to segments of the distal small bowel with wall thickening, according to the radiologist. They also noted no large bowel obstruction, free air or abscess. The patient did not feel as if she could go home, complaining that her pain continued and her nausea continued, despite treatment with morphine and Zofran. Call placed to the tele-hospitalist to discuss admission. After discussion, Julissa agreed to have the patient admitted to Dr. Pemberton's service for pain control, liquid diet, reassessment. Dr. Spangler - Gastroenterology - is available for phone consultation but not available to come to the hospital to see the patient. Lab Data Labs: Lab Results 11/16/24 11/16/24 Range/Units 21:08 21:10 WBC 7.0 (4.0-11.0) 10^3/uL RBC 3.41 L (4.20-5.40) 10^6/uL Hgb 9.3 L (12.0-16.0) g/dL Hct 29.7 L (36.0-48.0) % MCV 87.1 (81.0-99.0) fL MCH 27.3 (26.7-34.0) pg MCHC 31.3 (29.9-35.2) g/dL RDW 15.8 H (11.0-15.0) % Plt Count 238 (150-450) 10^3/uL MPV 9.2 L (9.5-13.5) fL Neut % (Auto) 60.8 (43.0-75.0) % Lymph % (Auto) 27.8 (20.5-60.0) % [place] % (Auto) 9.4 (1.7-12.0) % Eos % (Auto) 1.0 (0.9-7.0) % Baso % (Auto) 0.4 (0.2-2.0) % Neut # (Auto) 4.2 (1.4-6.5) 10^3/uL Lymph # (Auto) 1.9 (1.2-3.8) 10^3/uL [place] # (Auto) 0.7 (0.3-0.8) 10^3/uL Eos # (Auto) 0.1 (0.0-0.7) 10^3/uL Baso # (Auto) 0.0 (0.0-0.1) 10^3/uL Abs Immat Gran (auto) 0.04 H (0.00-0.03) 10^3/uL Imm/Tot Granulo (auto) 0.6 H (0.0-0.5) % Sodium 137 (136-145) mmol/L Potassium 3.9 (3.5-5.1) mmol/L Chloride 101 (98-107) mmol/L Carbon Dioxide 25.9 (21.0-32.0) mmol/L Anion Gap 14.0 BUN 14.0 (7.0-18.0) mg/dL Creatinine 0.75 (0.55-1.02) mg/dL Est GFR ( Amer) >60 (>=60 mL/min/1.73m^2) Est GFR (Non-Af Amer) >60 (>=60 mL/min/1.73m^2) BUN/Creatinine Ratio 18.7 Glucose 84 (74-106) mg/dL Calcium 7.8 L (8.5-10.1) mg/dL Total Bilirubin 0.4 (0.2-1.0) mg/dL AST 45 H (15-37) U/L ALT 34 (14-59) U/L Alkaline Phosphatase 165 H (46-116) U/L Total Protein 5.8 L (6.4-8.2) g/dL Albumin 2.0 L (3.4-5.0) g/dL Globulin 3.8 g/dL Albumin/Globulin Ratio 0.5 Lipase <10.0 L (16.0-77.0) U/L Urine Color Yellow (YELLOW) Urine Clarity Slightly cloudy A (CLEAR) Urine pH 6.0 (5.0-9.0) Ur Specific [place] 1.025 (1.005-1.025) Urine Protein 100 A (NEG/TRACE) mg/dL Urine Glucose (UA) Negative (NEGATIVE) mg/dL Urine Ketones Trace A (NEGATIVE) mg/dL Urine Occult Blood Negative (NEGATIVE) Urine Nitrite Negative (NEGATIVE) Urine Bilirubin Small A (NEGATIVE) Urine Urobilinogen 1.0 (0.2-1.0) EU/dL Ur Leukocyte Esterase Negative (NEGATIVE) Urine RBC None seen (0-2) #/HPF Urine WBC 0-2 A (NONE SEEN) #/HPF Ur Squamous Epith Cells Moderate A (NONE/RARE) #/LPF Urine Crystals None seen (None Seen) #/HPF Urine Bacteria Trace A (NONE SEEN) #/HPF Urine Casts Seen A (NONE SEEN) #/LPF Hyaline Casts Few Urine Mucus None seen (NONE SEEN) Ur Culture Indicated? No Urine HCG, Qual Negative (NEGATIVE) ECG Data Attestation: I personally reviewed and interpreted this ECG as follows: Discharge Plan Discharge Chief Complaint: Shortness of Breath/Dyspnea Clinical Impression: Crohn disease, Abdominal pain, Failure of outpatient treatment Patient Disposition: Admitted as Observation Time of Disposition Decision: 02:41
[2024-11-16] MEDS: 0.9 % SODIUM CHLORIDE 1,000 ML 1000 ML IV (21:11)
[2024-11-16] MEDS: DIPHENHYDRAMINE HCL 50 MG/ML VIAL 25 MG IVP (21:26)
[2024-11-16] MEDS: ONDANSETRON PF 4 MG/2 ML VIAL IV (21:26)
[2024-11-16] MEDS: MORPHINE SULFATE 2 MG/ML SYRINGE IV (21:26)
[2024-11-16 21:28] LABS: Basophils Percent Auto 0.4 % (0.2-2.0); Eosinophils Absolute Auto 0.1 10^3/uL (0.0-0.7); Hematocrit 29.7 % (36.0-48.0); Hemoglobin 9.3 g/dL (12.0-16.0); Immature Granulocytes Abs Auto 0.04 10^3/uL (0.00-0.03); Immature Granulocytes Pct Auto 0.6 % (0.0-0.5); Lymphocytes Absolute Auto 1.9 10^3/uL (1.2-3.8); Lymphocytes Percent Auto 27.8 % (20.5-60.0); Mean Corpuscular HGB Conc 31.3 g/dL (29.9-35.2); Mean Corpuscular Hemoglobin 27.3 pg (26.7-34.0); Mean Corpuscular Volume 87.1 fL (81.0-99.0); Mean Platelet Volume 9.2 fL (9.5-13.5); Monocytes Absolute Auto 0.7 10^3/uL (0.3-0.8); Monocytes Percent Auto 9.4 % (1.7-12.0); Neutrophils Absolute Auto 4.2 10^3/uL (1.4-6.5); Neutrophils Percent Auto 60.8 % (43.0-75.0); Platelet Count 238 10^3/uL (150-450); Red Blood Count 3.41 10^6/uL (4.20-5.40); Red Cell Distribution Width 15.8 % (11.0-15.0)
[2024-11-16 21:29] LABS: Bilirubin Urine SMALL (NEGATIVE); Blood Urine NEGATIVE (NEGATIVE); Color Urine YELLOW (YELLOW); Glucose Urine UA NEGATIVE (NEGATIVE); Ketones Urine TRACE mg/dL (NEGATIVE); Leukocyte Esterase Urine NEGATIVE (NEGATIVE); Nitrite Urine NEGATIVE (NEGATIVE); Protein Urine 100 mg/dL (NEG/TRACE); Specific Gravity Urine 1.025 (1.005-1.025)
[2024-11-16 21:31] LABS: Bacteria Urine TRACE #/HPF (NONE SEEN); Cast Seen? SEEN #/LPF (NONE SEEN); Clarity Urine SLIGHTLY CLOUDY (CLEAR); Crystals Seen? None Seen #/HPF (None Seen); Mucus Urine NONE SEEN (NONE SEEN); RBC Urine NONE SEEN #/HPF (0-2); Squamous Epithelial Cell Urine MODERATE #/LPF (NONE/RARE); WBC Urine 0-2 #/HPF (NONE SEEN)
[2024-11-16 21:32] LABS: HCG Qualitative Urine* NEGATIVE (NEGATIVE); Hyaline Casts Urine FEW; Internal Control Within Normal Limits; Urine Culture Indicated NO
[2024-11-16 21:45] LABS: Alanine Aminotransferase 34 U/L (14-59); Albumin Globulin Ratio 0.5; Alkaline Phosphatase 165 U/L (46-116); Aspartate Amino Transferase 45 U/L (15-37); BUN Creatinine Ratio 18.7; Bilirubin Total 0.4 mg/dL (0.2-1.0); Calcium 7.8 mg/dL (8.5-10.1); Carbon Dioxide 25.9 mmol/L (21.0-32.0); Chloride 101 mmol/L (98-107); Estimated GFR (African America >60 (>=60 mL/min/1.73m^2); Estimated GFR (Non-African Ame >60 (>=60 mL/min/1.73m^2); Globulin 3.8 g/dL; Glucose 84 mg/dL (74-106); Lipase <10.0 U/L (16.0-77.0); Potassium 3.9 mmol/L (3.5-5.1); Sodium 137 mmol/L (136-145); Total Protein 5.8 g/dL (6.4-8.2)
[2024-11-17] VITALS (31 sets, daily range): BP systolic 104–122; BP diastolic 72–90; PULSE 83–108; TEMP 36.7–37.3; O2SAT 98–100; BMI 19.4
[2024-11-17] MEDS: ONDANSETRON PF 4 MG/2 ML VIAL IV ×5 (00:13→20:31)
[2024-11-17] MEDS: MORPHINE SULFATE 2 MG/ML SYRINGE IV ×6 (00:13→20:32)
[2024-11-17] MEDS: DIPHENHYDRAMINE HCL 25 MG CAPSULE PO (02:03)
[2024-11-17] MEDS: DEXTROSE 5%-0.9% NACL 1,000 ML 1,000 ML 125 ML IV (04:24)
[2024-11-17 06:23] LABS: Basophils Percent Auto 0.3 % (0.2-2.0); Eosinophils Absolute Auto 0.1 10^3/uL (0.0-0.7); Hematocrit 25.1 % (36.0-48.0); Hemoglobin 7.8 g/dL (12.0-16.0); Immature Granulocytes Abs Auto 0.05 10^3/uL (0.00-0.03); Immature Granulocytes Pct Auto 0.7 % (0.0-0.5); Lymphocytes Absolute Auto 2.2 10^3/uL (1.2-3.8); Lymphocytes Percent Auto 31.5 % (20.5-60.0); Mean Corpuscular HGB Conc 31.1 g/dL (29.9-35.2); Mean Corpuscular Hemoglobin 27.1 pg (26.7-34.0); Mean Corpuscular Volume 87.2 fL (81.0-99.0); Mean Platelet Volume 8.9 fL (9.5-13.5); Monocytes Absolute Auto 0.6 10^3/uL (0.3-0.8); Monocytes Percent Auto 9.1 % (1.7-12.0); Neutrophils Percent Auto 57.4 % (43.0-75.0); Platelet Count 206 10^3/uL (150-450); Red Blood Count 2.88 10^6/uL (4.20-5.40); Red Cell Distribution Width 15.9 % (11.0-15.0)
[2024-11-17 06:41] LABS: Alanine Aminotransferase 28 U/L (14-59); Albumin Globulin Ratio 0.5; Albumin Level 1.7 g/dL (3.4-5.0); Alkaline Phosphatase 132 U/L (46-116); Anion Gap 12.2; Aspartate Amino Transferase 28 U/L (15-37); BUN Creatinine Ratio 11.9; Bilirubin Total 0.4 mg/dL (0.2-1.0); Calcium 7.4 mg/dL (8.5-10.1); Carbon Dioxide 25.4 mmol/L (21.0-32.0); Chloride 105 mmol/L (98-107); Estimated GFR (African America >60 (>=60 mL/min/1.73m^2); Estimated GFR (Non-African Ame >60 (>=60 mL/min/1.73m^2); Globulin 3.2 g/dL; Glucose 81 mg/dL (74-106); Potassium 3.6 mmol/L (3.5-5.1); Sodium 139 mmol/L (136-145); Total Protein 4.9 g/dL (6.4-8.2)
[2024-11-17] MEDS: METHYLPREDNISOLONE SOD SUCC PF 125 MG/2 ML VIAL 60 MG IVP ×2 (08:21→20:31)
[2024-11-17 08:29] LABS: C Reactive Protein 0.86 mg/dL (<=0.50); Magnesium 1.1 mg/dL (1.8-2.4)
[2024-11-17] MEDS: DIPHENHYDRAMINE HCL 50 MG/ML VIAL 25 MG IVP ×3 (09:02→21:12)
--- NOTE | 2024-11-17 10:00 | P.HP_ITS ---
HPI H&P: HPI History of Present Illness Chief complaint: [place] ABD PAIN Narrative: Patient presented to the emergency with increasing nausea vomiting, and increasing abdominal pain more right-sided, consistent with her previous episodes of Crohn's colitis, CT scan confirmed active Crohn's colitis and possible partial small bowel obstruction When I saw patient up in the medical surgical floor, having some mild discomfort at the time but she is been medicated, no other specific complaints, no other prodromal symptoms such as UTI, URI,, she has been currently treated with a prednisone taper for acute colitis but was failing that Opioid HPI Opioid Management Most Recent Pain and Opioid Data: Last Pain Scale 6 Today, 10:52 Last Pain Assessment Today, 04:00 Last MAR Pain Assessment 11/16/24, 21:26 Last ORT Total Score 5 Today, 03:25 Last ORT Risk Category Moderate Risk Today, 03:25 Review of Systems ROS Status of ROS 10 or more systems reviewed and unremark able except as noted in history and below [facility] Medical History (Updated 11/17/24 @ 11:00 by Adrian Pemberton MD) Severe protein-calorie malnutrition ?E43 - Unspecified severe protein-calorie malnutrition (ICD-10) Exacerbation of Crohn's disease ?K50.90 - Crohn's disease, unspecified, without complications (ICD-10) Anxiety ?F41.9 - Anxiety disorder, unspecified (ICD-10) Leukocytosis ?D72.829 - Elevated white blood cell count, unspecified (ICD-10) Hypokalemia ?E87.6 - Hypokalemia (ICD-10) Hypomagnesemia ?E83.42 - Hypomagnesemia (ICD-10) Crohn's disease with rectal bleeding ?K50.911 - Crohn's disease, unspecified, with rectal bleeding (ICD-10) 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) Crohn's colitis ?K50.10 - Crohn's disease of large intestine without complications (ICD-10) Hypocalcemia ?E83.51 - Hypocalcemia (ICD-10) Exacerbation of Crohn's disease ?K50.90 - Crohn's disease, unspecified, without complications (ICD-10) Abdominal pain ?R10.9 - Unspecified abdominal pain (ICD-10) Nausea and vomiting ?R11.2 - Nausea with vomiting, unspecified (ICD-10) Diarrhea ?R19.7 - Diarrhea, unspecified (ICD-10) IBS (irritable bowel syndrome) ?K58.9 - Irritable bowel syndrome, unspecified (ICD-10) Crohn disease ?K50.90 - Crohn's disease, unspecified, without complications (ICD-10) Surgical History History of colostomy reversal ?Z98.890 - Other specified postprocedural states (ICD-10) History of colon resection ?Z90.49 - Acquired absence of other specified parts of digestive tract (ICD- 10) Social History Highest level of school completed/degree received: high school graduate Little interest or pleasure in doing things: not at all Feeling down, depressed, or hopeless: not at all Meds Home Medications and Allergies Home Medications ?Medication ?Instructions ?Recorded ?Confirmed ?Type ondansetron 4 mg disintegrating 4 mg PO Q6H PRN nausea and 09/11/24 11/16/24 Rx tablet vomiting #30 tabs albuterol sulfate 90 mcg/actuation 2 puff inhalation Q 6H PRN 11/01/24 11/16/24 History aerosol inhaler shortness of breath or wheez ing magnesium oxide 400 mg (241.3 mg 400 mg PO QDAY PRN lo w magnesium 11/01/24 11/16/24 History magnesium) tablet prednisone 10 mg tablets in a dose 20 mg PO DAILY 10/1811/16/24 History pack Allergies Allergy/AdvReac Type Severity Reaction Status Date / Time adhesive Allergy Intermediate Blister Verified 11/01/24 10:29 iron Allergy Intermediate Hives Verified 11/01/24 10:29 ketorolac (From Toradol) Allergy Intermediate hives Verified 11/01/24 10:29 Penicillins Allergy Intermediate Hives Verified 11/01/24 10:29 vancomycin Allergy Intermediate Hives Verified 11/01/24 10:29 tramadol AdvReac Intermediate JAW Verified 11/01/24 10:29 CLENCHING Exam Constitutional Vital Signs, click to edit/add: Last Vital Signs Temp 98.2 F 11/17/24 07:47 Pulse 93 H 11/17/24 07:47 Resp 18 11/17/24 07:47 BP 104/72 11/17/24 07:47 Pulse Ox 98 11/17/24 07:47 O2 Del Method Room Air 11/17/24 07:47 Documenting provider has reviewed patient's vital signs: yes Common normals: apparent distress (Mild painful distress) Chest Common normals: inspection of chest normal Respiratory Common normals: normal respiratory effort, no retractions and clear to auscultation bilaterally Cardio Common normals: regular rate, regular rhythm and no murmurs GI Common normals: Normal to inspection, nondistended, normoactive bowel sounds present; negative for soft to palpation (Mild to moderate firmness) and tender (Si gnificant tenderness more right sided, no rebound tenderness) Extremity Common normals: normal to inspection, full ROM, normal capillary refill, no vitaly nt enlargement and no clubbing, cyanosis or edema Results Labs Labs: Short CBC 11/16/24 11/17/24 Range/Units 21:08 06:09 WBC 7.0 7.0 (4.0-11.0) 10^3/uL Hgb 9.3 L 7.8 L (12.0-16.0) g/dL Hct 29.7 L 25.1 L (36.0-48.0) % Plt Count 238 206 (150-450) 10^3/uL BMP 11/16/24 11/17/24 21:08 06:09 Sodium 137 139 Potassium 3.9 3.6 Chloride 101 105 Carbon Dioxide 25.9 25.4 BUN 14.0 10.0 Creatinine 0.75 0.84 Glucose 84 81 Calcium 7.8 L 7.4 L Liver Function 11/16/24 11/17/24 Range/Units 21:08 06:09 Total Bilirubin 0.4 0.4 (0.2-1.0) mg/dL AST 45 H 28 (15-37) U/L ALT 34 28 (14-59) U/L Alkaline Phosphatase 165 H 132 H (46-116) U/L Albumin 2.0 L 1.7 L (3.4-5.0) g/dL Urine 11/16/24 Range/Units 21:10 Urine Color Yellow (YELLOW) Urine Clarity Slightly cloudy A (CLEAR) Urine pH 6.0 (5.0-9.0) Ur Specific [place] 1.025 (1.005-1.025) Urine Protein 100 A (NEG/TRACE) mg/dL Urine Glucose (UA) Negative (NEGATIVE) mg/dL Assessment and Plan Assessment and Plan (1) Clostridioides difficile infection: (2) Hypomagnesemia: (3) Abdominal pain: (4) Severe protein-calorie malnutrition: (5) Exacerbation of Crohn's disease: (6) Anemia due to blood loss: (7) Nausea and vomiting: Qualifiers: Vomiting type: unspecified Qualified Code(s): R11.2 - Nausea with vomiting, unspecified (8) Fatty liver disease, nonalcoholic: Plan Admission findings: Severe pain to the level 10, borderline fever at 99.1, sinus tachycardia, respiratory distress, CT scan with evidence for acute active Crohn's colitis and partial bowel partial small bowel obstruction Acute active Crohn's colitis with failed outpatient treatment with oral prednisone, patient mated for IV steroids, and pain control, question of partial small bowel obstruction will repeat acute abdominal series she is no longer having emesis Severe protein calorie malnutrition-diet supplement History of C. difficile colitis-check stool sample History of acute blood loss anemia-check stool sample Fatty liver disease-monitor as an outpatient liver function test slightly elevated but improved Hypomagnesemia-supplement IV and increase oral intake Asthma-as needed inhalers Hypocalcemia but corrected calcium will be in the normal range Admission status: Patient initially placed in observation bed having significant pain persisting requiring IV medications, maintain IV medications, adding steroids today, medically necessary treatment will span 2 midnights having failed the observational time. Will change patient to inpatient status
[2024-11-17] MEDS: MAGNESIUM SULFATE IN WATER 4 GM/100 ML PIGGYBACK IV (11:48)
[2024-11-17] MEDS: MAGNESIUM OXIDE 400 MG TABLET PO (21:12)
[2024-11-18] VITALS (12 sets, daily range): BP systolic 105–131; BP diastolic 72–89; PULSE 79–99; TEMP 36.3–36.7; O2SAT 98–100
[2024-11-18] MEDS: ONDANSETRON PF 4 MG/2 ML VIAL IV ×6 (00:36→22:45)
[2024-11-18] MEDS: MORPHINE SULFATE 2 MG/ML SYRINGE IV ×7 (00:36→22:46)
[2024-11-18] MEDS: DIPHENHYDRAMINE HCL 50 MG/ML VIAL 25 MG IVP ×4 (03:09→22:44)
[2024-11-18 04:47] LABS: Basophils Percent Auto 0.1 % (0.2-2.0); Hematocrit 24.5 % (36.0-48.0); Hemoglobin 7.8 g/dL (12.0-16.0); Immature Granulocytes Abs Auto 0.07 10^3/uL (0.00-0.03); Immature Granulocytes Pct Auto 0.6 % (0.0-0.5); Lymphocytes Absolute Auto 1.9 10^3/uL (1.2-3.8); Lymphocytes Percent Auto 16.4 % (20.5-60.0); Mean Corpuscular HGB Conc 31.8 g/dL (29.9-35.2); Mean Corpuscular Hemoglobin 27.3 pg (26.7-34.0); Mean Corpuscular Volume 85.7 fL (81.0-99.0); Mean Platelet Volume 9.2 fL (9.5-13.5); Monocytes Absolute Auto 0.3 10^3/uL (0.3-0.8); Monocytes Percent Auto 2.6 % (1.7-12.0); Neutrophils Absolute Auto 9.1 10^3/uL (1.4-6.5); Neutrophils Percent Auto 80.3 % (43.0-75.0); Platelet Count 273 10^3/uL (150-450); Red Blood Count 2.86 10^6/uL (4.20-5.40); Red Cell Distribution Width 15.6 % (11.0-15.0); White Blood Count 11.4 10^3/uL (4.0-11.0)
[2024-11-18 05:01] LABS: Alanine Aminotransferase 22 U/L (14-59); Albumin Globulin Ratio 0.6; Albumin Level 1.9 g/dL (3.4-5.0); Alkaline Phosphatase 132 U/L (46-116); Anion Gap 12.6; Aspartate Amino Transferase 12 U/L (15-37); BUN Creatinine Ratio 6.5; Bilirubin Total 0.2 mg/dL (0.2-1.0); C Reactive Protein 1.19 mg/dL (<=0.50); Calcium 7.7 mg/dL (8.5-10.1); Chloride 104 mmol/L (98-107); Estimated GFR (African America >60 (>=60 mL/min/1.73m^2); Estimated GFR (Non-African Ame >60 (>=60 mL/min/1.73m^2); Globulin 3.3 g/dL; Glucose 150 mg/dL (74-106); Potassium 4.6 mmol/L (3.5-5.1); Sodium 138 mmol/L (136-145); Total Protein 5.2 g/dL (6.4-8.2)
[2024-11-18] MEDS: MAGNESIUM OXIDE 400 MG TABLET PO ×3 (05:36→20:34)
--- NOTE | 2024-11-18 07:00 | XR_ITS ---
The [address] [address] Patient Name: BONNIE JOHANSEN MRN: [id number] date: 2000 Sex: F Assigned Patient Location: MS Current Patient Location: MS Accession/Order Number: [id number] Exam Date: 11/18/2024 08:37 Report Date: 11/18/2024 08:58 At the request of: NUHA ANDREWS MD Procedure: XR abdomen min 2V 2 views of abdomen COMPARISON: 10/17/2024 HISTORY: Follow-up partial small bowel obstruction history Central line placement. No NG tube. THORAX: Lung bases unremarkable. Central line tip overlies the right atrium. FREE AIR: No subdiaphragmatic free air. BOWEL: Mild gaseous intestinal distention. STOOL: No significant stool RENAL STONES: No significant stones present. VASCULAR CALCIFICATIONS: Unremarkable SOFT TISSUE: Unremarkable BONES: Unremarkable POSTSURGICAL CHANGES: Right bowel anastomosis suture. XR/XR abdomen min 2V IMPRESSION: Mild gaseous intestinal distention. No free air. Mild constipation Impression dictated by: Daniel Fernandez M.D. 11/18/2024 8:58 AM Dictation Location: [facility] Electronically authenticated by: [id number] Y Date: 11/18/2024 08:58
--- NOTE | 2024-11-18 07:15 | P.DS_ITS ---
DS: Providers Provider Date of admission: 11/17/24 03:04 Primary care physician: [facility] Consults: 11/17/24 07:58 Consult to Pharmacy Routine Consulting Provider: Reason for consultation: Please Roxana me when Med Rec is Updated Has provider been notified: No DS: Diagnosis Discharge Diagnosis (1) Clostridioides difficile infection: (2) Hypomagnesemia: (3) Abdominal pain: (4) Severe protein-calorie malnutrition: (5) Exacerbation of Crohn's disease: (6) Anemia due to blood loss: (7) Nausea and vomiting: Qualifiers: Vomiting type: unspecified Qualified Code(s): R11.2 - Nausea with vomiting, unspecified (8) Fatty liver disease, nonalcoholic: DS: Summary Hospital Course Hospital Course: Pt left ama before beingseen today Time Spent with Patient Time attestation: Total time spent providing and/or coordinating discharge services: Exam Constitutional Vital Signs, click to edit/add: Last Vital Signs Temp 97.6 F 11/18/24 03:14 Pulse 84 11/18/24 03:14 Resp 20 11/18/24 03:14 BP 105/75 11/18/24 03:14 Pulse Ox 98 11/18/24 05:00 O2 Del Method Room Air 11/18/24 05:00 DS: Data Data Completed and Pending Labs on day of discharge: Labs from last 24 hours 11/18/24 11/17/24 04:41 06:09 WBC 11.4 H RBC 2.86 L Hgb 7.8 L Hct 24.5 L MCV 85.7 MCH 27.3 MCHC 31.8 RDW 15.6 H Plt Count 273 MPV 9.2 L Neut % (Auto) 80.3 H Lymph % (Auto) 16.4 L Ritchie % (Auto) 2.6 Eos % (Auto) 0.0 L Baso % (Auto) 0.1 L Neut # (Auto) 9.1 H Lymph # (Auto) 1.9 Ritchie # (Auto) 0.3 Eos # (Auto) 0.0 Baso # (Auto) 0.0 Abs Immat Gran (auto) 0.07 H Imm/Tot Granulo (auto) 0.6 H Sodium 138 Potassium 4.6 Chloride 104 Carbon Dioxide 26.0 Anion Gap 12.6 BUN 5.0 L Creatinine 0.77 Est GFR ( Amer) >60 Est GFR (Non-Af Amer) >60 BUN/Creatinine Ratio 6.5 Glucose 150 H Calcium 7.7 L Magnesium 1.1 L Total Bilirubin 0.2 AST 12 L ALT 22 Alkaline Phosphatase 132 H C-Reactive Protein 1.19 H 0.86 H Total Protein 5.2 L Albumin 1.9 L Globulin 3.3 Albumin/Globulin Ratio 0.6 Discharge Plan Discharge Discharge Medications: No Action ondansetron 4 mg tablet,disintegrating 4 mg PO Q6H PRN (Reason: nausea and vomiting) Qty: 30 0RF albuterol sulfate 90 mcg/actuation HFA aerosol inhaler 2 puff INHALATION Q6H PRN (Reason: shortness of breath or wheezing) magnesium oxide 400 mg (241.3 mg magnesium) tablet 400 mg PO QDAY PRN (Reason: low magnesium) prednisone 10 mg tablets,dose pack 20 mg PO DAILY Rx Instructions: 6 PO daily x 3 days, then 4 PO daily x 3 days, then 2 PO daily x 3 days, then 1 PO daily x 3 days Print Language: Maldivian
[2024-11-18] MEDS: METHYLPREDNISOLONE SOD SUCC PF 125 MG/2 ML VIAL 60 MG IVP ×3 (08:30→17:54)
[2024-11-18] MEDS: PROSTAT 15 GM PROTEIN/100 CAL 30 ML LIQUID PACKET PO ×2 (08:31→20:33)
--- NOTE | 2024-11-18 09:59 | P.PN_ITS ---
Progress Note: Subjective Subjective Interval history: Patient developed persistent pain she states in the 9-10 range Exam Constitutional Vital Signs, click to edit/add: Last Vital Signs Temp 97.4 F L 11/18/24 07:34 Pulse 79 11/18/24 07:34 Resp 18 11/18/24 07:36 BP 108/72 11/18/24 07:34 Pulse Ox 98 11/18/24 07:34 O2 Del Method Room Air 11/18/24 07:34 Documenting provider has reviewed patient's vital signs: yes Common normals: apparent distress (Mild painful distress) Chest Common normals: inspection of chest normal Respiratory Common normals: normal respiratory effort and no use of accessory muscles Auscultation: no rhonchi and no wheezes Cardio Common normals: regular rate, regular rhythm, S1 normal heart sound and S2 normal heart sound GI Common normals: Normal to inspection, nondistended, normoactive bowel sounds present; negative for soft to palpation (Mild to moderate firmness) and tender (Significant tenderness more right sided, no rebound tenderness) Palpation: tender (Lower abdomen, no rebound) Extremity Common normals: normal to inspection, full ROM, normal capillary refill, no joint enlargement and no clubbing, cyanosis or edema Progress Note: Objective Labs Labs: Short CBC 11/18/24 Range/Units 04:41 WBC 11.4 H (4.0-11.0) 10^3/uL Hgb 7.8 L (12.0-16.0) g/dL Hct 24.5 L (36.0-48.0) % Plt Count 273 (150-450) 10^3/uL BMP 11/18/24 04:41 Sodium 138 Potassium 4.6 Chloride 104 Carbon Dioxide 26.0 BUN 5.0 L Creatinine 0.77 Glucose 150 H Calcium 7.7 L Liver Function 11/18/24 Range/Units 04:41 Total Bilirubin 0.2 (0.2-1.0) mg/dL AST 12 L (15-37) U/L ALT 22 (14-59) U/L Alkaline Phosphatase 132 H (46-116) U/L Albumin 1.9 L (3.4-5.0) g/dL Progress Note: A&P Assessment and Plan (1) Clostridioides difficile infection: (2) Hypomagnesemia: (3) Abdominal pain: (4) Severe protein-calorie malnutrition: (5) Exacerbation of Crohn's disease: (6) Anemia due to blood loss: (7) Nausea and vomiting: Qualifiers: Vomiting type: unspecified Qualified Code(s): R11.2 - Nausea with vomiting, unspecified (8) Fatty liver disease, nonalcoholic: Plan Admission findings: Severe pain to the level 10, borderline fever at 99.1, sinus tachycardia, respiratory distress, CT scan with evidence for acute active Crohn's colitis and partial bowel partial small bowel obstruction Acute active Crohn's colitis with failed outpatient treatment with oral prednisone,-so far minimal response to the twice daily dosing of IV steroids, I will increase it to 4 times daily with an increased dose this morning to 125, acute abdominal series did not show any obstruction, just constipation, repeat acute abdominal series in a.m. Constipation-try patient on lactulose and daily MiraLAX Severe protein calorie malnutrition-diet supplement History of C. difficile colitis-check stool sample, but patient without diarrhea currently History of acute blood loss anemia-check stool sample Fatty liver disease-monitor as an outpatient liver function test slightly elevated but improved Hypomagnesemia-supplement IV and increase oral intake Asthma-as needed inhalers Hypocalcemia but corrected calcium will be in the normal range Admission status: Patient initially placed in observation bed having significant pain persisting requiring IV medications, maintain IV medications, adding steroids today, medically necessary treatment will span 2 midnights having failed the observational time. Will change patient to inpatient status ?
[2024-11-18] MEDS: PANTOPRAZOLE SODIUM 40 MG VIAL IV (10:39)
[2024-11-18] MEDS: POLYETHYLENE GLYCOL 3350 17 GM POWDER PACKET PO (10:39)
[2024-11-18] MEDS: SUCRALFATE 1 GM TABLET PO ×3 (10:39→20:34)
[2024-11-18] MEDS: ENSURE ORIGINAL 237 ML BOTTLE PO (20:33)
[2024-11-18] MEDS: HYOSCYAMINE SULFATE 0.125 MG TAB.SUBL SL (20:33)
[2024-11-19] VITALS (8 sets, daily range): BP systolic 106–140; BP diastolic 72–84; PULSE 80–100; TEMP 36.3–36.6; O2SAT 97–100
[2024-11-19] MEDS: METHYLPREDNISOLONE SOD SUCC PF 125 MG/2 ML VIAL 60 MG IVP ×3 (00:32→11:26)
[2024-11-19] MEDS: MORPHINE SULFATE 2 MG/ML SYRINGE IV ×3 (02:54→11:26)
[2024-11-19] MEDS: DIPHENHYDRAMINE HCL 50 MG/ML VIAL 25 MG IVP ×2 (04:51→11:26)
[2024-11-19 05:30] LABS: Basophils Percent Auto 0.1 % (0.2-2.0); Hematocrit 24.3 % (36.0-48.0); Hemoglobin 7.4 g/dL (12.0-16.0); Immature Granulocytes Pct Auto 0.9 % (0.0-0.5); Lymphocytes Absolute Auto 1.9 10^3/uL (1.2-3.8); Mean Corpuscular HGB Conc 30.5 g/dL (29.9-35.2); Mean Corpuscular Hemoglobin 26.6 pg (26.7-34.0); Mean Corpuscular Volume 87.4 fL (81.0-99.0); Mean Platelet Volume 9.4 fL (9.5-13.5); Monocytes Absolute Auto 0.4 10^3/uL (0.3-0.8); Monocytes Percent Auto 3.6 % (1.7-12.0); Neutrophils Absolute Auto 8.2 10^3/uL (1.4-6.5); Neutrophils Percent Auto 77.4 % (43.0-75.0); Platelet Count 326 10^3/uL (150-450); Red Blood Count 2.78 10^6/uL (4.20-5.40); Red Cell Distribution Width 15.7 % (11.0-15.0); White Blood Count 10.6 10^3/uL (4.0-11.0)
[2024-11-19 05:52] LABS: Alanine Aminotransferase 19 U/L (14-59); Albumin Globulin Ratio 0.6; Albumin Level 1.8 g/dL (3.4-5.0); Alkaline Phosphatase 116 U/L (46-116); Anion Gap 12.3; Aspartate Amino Transferase 7 U/L (15-37); BUN Creatinine Ratio 16.7; Bilirubin Total 0.1 mg/dL (0.2-1.0); C Reactive Protein <0.50 mg/dL (<=0.50); Calcium 7.9 mg/dL (8.5-10.1); Carbon Dioxide 27.4 mmol/L (21.0-32.0); Chloride 106 mmol/L (98-107); Estimated GFR (African America >60 (>=60 mL/min/1.73m^2); Estimated GFR (Non-African Ame >60 (>=60 mL/min/1.73m^2); Globulin 3.2 g/dL; Glucose 182 mg/dL (74-106); Potassium 4.7 mmol/L (3.5-5.1); Sodium 141 mmol/L (136-145)
--- NOTE | 2024-11-19 06:00 | P.DS_ITS ---
DS: Providers Provider Date of admission: 11/17/24 03:04 Primary care physician: [facility] Consults: 11/17/24 07:58 Consult to Pharmacy Routine Consulting Provider: Reason for consultation: Please [place] me when Med Rec is Updated Has provider been notified: No DS: Diagnosis Discharge Diagnosis (1) Clostridioides difficile infection: (2) Hypomagnesemia: (3) Abdominal pain: (4) Severe protein-calorie malnutrition: (5) Exacerbation of Crohn's disease: (6) Anemia due to blood loss: (7) Nausea and vomiting: Qualifiers: Vomiting type: unspecified Qualified Code(s): R11.2 - Nausea with vomiting, unspecified (8) Fatty liver disease, nonalcoholic: Plan Admission findings: Severe pain to the level 10, borderline fever at 99.1, sinus tachycardia, respiratory distress, CT scan with evidence for acute active Crohn's colitis and partial bowel partial small bowel obstruction Acute active Crohn's colitis with failed outpatient treatment with oral prednisone, pain improved today Constipation-try patient on lactulose and daily MiraLAX Severe protein calorie malnutrition-diet supplement History of C. difficile colitis-stool sample pending History of acute blood loss anemia-stool sample pending Fatty liver disease-monitor as an outpatient liver function test slightly elevated but improved Hypomagnesemia-supplement IV and increase oral intake Asthma-as needed inhalers Hypocalcemia but corrected calcium will be in the normal range Admission status: Patient initially placed in observation bed having significant pain persisting requiring IV medications, maintain IV medications, adding steroi ds today, medically necessary treatment will span 2 midnights having failed the observational time. Will change patient to inpatient status DS: Summary Hospital Course Hospital Course: Patient with a history of acute colitis, presented to the emergency room after she was treated with oral prednisone for acute exacerbation of her Crohn's colitis. In ER CT scan consistent with active colitis right lower quadrant, she was placed on IV steroids, twice daily dosing initially, 4 times a day dosing yesterday, pain is improved today, will see how she progresses this morning if able to eat well and pain is fairly well-controlled she can be discharged to home in improving condition. Medications see list with prednisone taper, follow-up with PCP this week. Only other issues that she describes was constipation but that has resolved, acute abdominal series with a questionable small bowel obstruction, repeat acute abdominal series did not confirm Time Spent with Patient Time attestation: Total time spent providing and/or coordinating discharge services: Exam Constitutional Vital Signs, click to edit/add: Last Vital Signs Temp 97.5 F L 11/19/24 04:50 Pulse 84 11/19/24 04:50 Resp 16 11/19/24 04:50 BP 106/72 11/19/24 04:50 Pulse Ox 98 11/19/24 04:51 O2 Del Method Room Air 11/19/24 04:50 Documenting provider has reviewed patient's vital signs: yes Common normals: apparent distress (Mild painful distress) Chest Common normals: inspection of chest normal Respiratory Common normals: normal respiratory effort and clear to auscultation bilaterally Auscultation: no rhonchi and no wheezes Cardio Common normals: regular rate, regular rhythm and no murmurs Heart sounds: no murmurs GI Common normals: Normal to inspection, nondistended, normoactive bowel sounds present; negative for soft to palpation (Mild to moderate firmness) and tender (Significant tenderness more right sided, no rebound tenderness) Palpation: tender (Minimal tenderness right lower quadrant today, much improved) Extremity Common normals: normal to inspection, full ROM, normal capillary refill, no joint enlargement and no clubbing, cyanosis or edema DS: Data Data Completed and Pending Labs on day of discharge: Labs from last 24 hours 11/19/24 05:00 WBC 10.6 RBC 2.78 L Hgb 7.4 L Hct 24.3 L MCV 87.4 MCH 26.6 L MCHC 30.5 RDW 15.7 H Plt Count 326 MPV 9.4 L Neut % (Auto) 77.4 H Lymph % (Auto) 18.0 L [place] % (Auto) 3.6 Eos % (Auto) 0.0 L Baso % (Auto) 0.1 L Neut # (Auto) 8.2 H Lymph # (Auto) 1.9 [place] # (Auto) 0.4 Eos # (Auto) 0.0 Baso # (Auto) 0.0 Abs Immat Gran (auto) 0.10 H Imm/Tot Granulo (auto) 0.9 H Sodium 141 Potassium 4.7 Chloride 106 Carbon Dioxide 27.4 Anion Gap 12.3 BUN 12.0 Creatinine 0.72 Est GFR ( Amer) >60 Est GFR (Non-Af Amer) >60 BUN/Creatinine Ratio 16.7 Glucose 182 H Calcium 7.9 L Total Bilirubin 0.1 L AST 7 L ALT 19 Alkaline Phosphatase 116 C-Reactive Protein <0.50 Total Protein 5.0 L Albumin 1.8 L Globulin 3.2 Albumin/Globulin Ratio 0.6 Discharge Plan Discharge Disposition: Home, Self-Care Discharge Medications: New prednisone 10 mg tablet 50 mg PO DAILY Qty: 47 0RF Rx Instructions: 5/day for 3 days. 4/day for 3 days, 3/day for 3 days, 2/day for 3 days, 1/day for 3 days, 1/2 /day for 4 days hyoscyamine sulfate 0.125 mg Tablet, Sublingual 0.125 mg sublingual QID PRN (Reason: Cramping) Qty: 30 0RF Continued ondansetron 4 mg tablet,disintegrating 4 mg PO Q6H PRN (Reason: nausea and vomiting) Qty: 30 0RF albuterol sulfate 90 mcg/actuation HFA aerosol inhaler 2 puff INHALATION Q6H PRN (Reason: shortness of breath or wheezing) magnesium oxide 400 mg (241.3 mg magnesium) tablet 400 mg PO QDAY PRN (Reason: low magnesium) Discontinued prednisone 10 mg tablets,dose pack 20 mg PO DAILY Rx Instructions: 6 PO daily x 3 days, then 4 PO daily x 3 days, then 2 PO daily x 3 days, then 1 PO daily x 3 days Print Language: Slovenian Forms: Portal Instructions Follow Up Appointments: November 22 @ 10am with Dr. Hollins [facility], [address], [place] [phone]
[2024-11-19] MEDS: MAGNESIUM OXIDE 400 MG TABLET PO (06:49)
[2024-11-19] MEDS: SUCRALFATE 1 GM TABLET PO ×2 (06:49→11:26)
--- NOTE | 2024-11-19 08:28 | XR_ITS ---
The [address] [address] Patient Name: BONNIE JOHANSEN MRN: [id number] date: 2000 Sex: F Assigned Patient Location: MS Current Patient Location: MS Accession/Order Number: [id number] Exam Date: 11/19/2024 08:57 Report Date: 11/19/2024 09:02 At the request of: NUHA ANDREWS MD Procedure: XR abdomen min 2V ABDOMEN SERIES COMPARISON: 11/18/[address] 11/16/2024 CLINICAL DATA: Follow-up possible small bowel obstruction. Supine and upright views of the abdomen and pelvis were obtained. There is continued air and stool within the colon, greater on the left. There is apparent wall thickening involving the descending colon. There is anastomotic suture at the splenic flexure. No dilated small bowel loops are identified. The small bowel loops which were mildly distended on CT contained fluid. No free air or significant air-fluid levels are seen. No soft tissue masses or suspect renal calculi are noted. There is subtle dextroscoliotic curvature. XR/XR abdomen min 2V IMPRESSION: NONSPECIFIC BOWEL GAS PATTERN, DESCRIBED. Impression dictated by: Alma Land M.D. 11/19/2024 9:02 AM Dictation Location: [place] [address] Electronically authenticated by: [id number] Y Date: 11/19/2024 09:02
--- NOTE | 2024-11-19 08:52 | CM.NOTE ---
Rounds made with Dr. Pemberton, pt will discharge to home today. Pt will f/u with PCP next week. Pt up ambulatory in room, no discharge needs identified.
[2024-11-19] MEDS: POLYETHYLENE GLYCOL 3350 17 GM POWDER PACKET PO (09:55)
[2024-11-19] MEDS: ENSURE ORIGINAL 237 ML BOTTLE PO (09:55)
[2024-11-19] MEDS: PANTOPRAZOLE SODIUM 40 MG VIAL IV (09:55)
[2024-11-19] MEDS: PROSTAT 15 GM PROTEIN/100 CAL 30 ML LIQUID PACKET PO (09:55)
--- NOTE | 2024-11-19 15:45 | NUTR.NU ---
Pt w/several previous hospital stays was admitted 11/17/24 w/Crohn?s flare. New dx include non-alcoholic fatty liver disease and C. diff infection. CBW 48.1 kg shows no significant changes; pt remains w/in IBWR per BMI 19.4. PO intakes of regular diet average 75%. Nutritional supplements are also provided. Pt has previously been educated on high PRO/low fiber diet to reduce GI distress and Crohn?s symptoms. Pt meets ASPEN criteria for moderate PCM; however, albumin level of 1.8 puts her in the severe PCM category per NIH criteria. Pt has Dietitian?s contact info and is encouraged to phone or email with any nutritional questions or concerns. Will continue to follow PRN
--- NOTE | 2024-11-20 14:53 | CM.DCFOLLOWU ---
1st attempt 6/3 no answer
--- NOTE | 2024-11-21 11:46 | CM.DCFOLLOWU ---
Person spoke with: Renee How are you feeling? Much better How is your pain? No pain Did you understand your discharge instructions? Yes Do you have any questions about your discharge instructions? No Were you given any prescriptions at discharge? Yes Were you able to get your prescriptions filled? Yes Do you understand how to take your medications as ordered? Yes Do you have any questions about your follow up appointment and do you plan to keep your follow up appointment? No appointment scheduled and will go to appt. Is there anything else that you would like to discuss? No Questions/Comments/Concerns/Other:
== END 2024-11-19 12:07 | disposition home or self-care (01) | DRG 245 ==
LOC: ER 11-17 02:41 → MS 11-17 03:22
PROVIDERS: Physician Assistant; Registered Nurse; Admitting Provider Family Medicine; Emergency Provider Emergency Medicine; Visit Provider Family Medicine
DX: K50.90 Crohn's disease, unspecified, without complications (principal); R10.9 Unspecified abdominal pain; Z90.49 Acquired absence of other specified parts of digestive tract; E83.42 Hypomagnesemia; E43 Unspecified severe protein-calorie malnutrition; R11.2 Nausea with vomiting, unspecified; K76.0 Fatty (change of) liver, not elsewhere classified; R06.03 Acute respiratory distress; J45.909 Unspecified asthma, uncomplicated; E83.51 Hypocalcemia; D50.0 Iron deficiency anemia secondary to blood loss (chronic); K59.00 Constipation, unspecified; Z68.1 Body mass index [BMI] 19.9 or less, adult; Z87.19 Personal history of other diseases of the digestive system
CPT/HCPCS: 36415; 36591; 71046; 74019; 74176; 80053; 81001; 82947; 83690; 83735; 84703; 85025; 86140; 87045; 87046; 87427; 87493; 93005; 94761; 96361; 96374; 96375; 96376; 99285; G0328; J1200; J2270; J2405; J2919; J3475

== ENCOUNTER 2025-01-25 19:38 | Emergency (ER) | payer OTHER, SELFPAY ==
[2025-01-25 19:43] VITALS: BP 104/69; PULSE 113; TEMP 36.9; O2SAT 100; BMI 22.9
--- NOTE | 2025-01-25 20:29 | XR_ITS ---
The [address] [address] Patient Name: BONNIE JOHANSEN MRN: [id number] date: 2000 Sex: F Assigned Patient Location: ER Current Patient Location: ER Accession/Order Number: [id number] Exam Date: 01/25/2025 21:03 Report Date: 01/25/2025 21:05 At the request of: ROSAS GOODMAN DO Procedure: XR chest 2V PA AND LATERAL CHEST: CLINICAL HISTORY: SOB COMPARISON: 11/16/2024 FINDINGS: Left-sided Ogtcjf-e-Ctuh unchanged. Unremarkable cardiomediastinal silhouette. There are patchy opacities both lung bases. No effusion or pneumothorax. XR/XR chest 2V IMPRESSION: Patchy opacities both lung bases most confluent right lung base noted. This could suggest developing airspace disease. Recommend follow-up to resolution. Impression dictated by: Emerson Fuentes M.D. 01/25/2025 9:05 PM Dictation Location: [place] [address] Electronically authenticated by: [id number] Y Date: 01/25/2025 21:05
--- NOTE | 2025-01-25 20:32 | XR_ITS ---
The [address] [address] Patient Name: BONNIE JOHANSEN MRN: [id number] date: 2000 Sex: F Assigned Patient Location: ER Current Patient Location: ER Accession/Order Number: [id number] Exam Date: 01/25/2025 21:06 Report Date: 01/25/2025 21:09 At the request of: ROSAS GOODMAN DO Procedure: XR abdomen 1V Upright spine views INDICATION: Pain Comparison 11/19/2024 FINDINGS: Suture material right mid to lower quadrant. Nonspecific bowel gas pattern. No definite bowel obstruction. No radiopaque calculi overlying the renal shadows. Minimal levocurvature lower lumbosacral junction XR/XR abdomen 1V IMPRESSION: Nonspecific bowel gas pattern. No evidence of free air. Impression dictated by: Emerson Fuentes M.D. 01/25/2025 9:09 PM Dictation Location: [place] [address] Electronically authenticated by: [id number] Y Date: 01/25/2025 21:09
[2025-01-25] MEDS: 0.9 % SODIUM CHLORIDE 1,000 ML 1000 ML IV (21:15)
[2025-01-25] MEDS: diphenhydrAMINE HCL 25 MG in 0.9 % SODIUM CHLORIDE 100 ML 301.5 MG IV (21:22)
[2025-01-25] MEDS: FAMOTIDINE/PF 20 MG/2 ML VIAL IV (21:25)
[2025-01-25] MEDS: MORPHINE SULFATE 4 MG/ML VIAL IV (21:27)
[2025-01-25 21:34] LABS: Hemoglobin 7.7 g/dL (12.0-16.0); Mean Corpuscular HGB Conc 33.3 g/dL (29.9-35.2); Mean Corpuscular Hemoglobin 26.1 pg (26.7-34.0); Mean Corpuscular Volume 78.3 fL (81.0-99.0); Platelet Count 71 10^3/uL (150-450); Red Blood Count 2.95 10^6/uL (4.20-5.40); White Blood Count 3.0 10^3/uL (4.0-11.0)
[2025-01-25 21:45] LABS: Alanine Aminotransferase 71 U/L (14-59); Albumin Globulin Ratio 0.7; Albumin Level 2.1 g/dL (3.4-5.0); Alkaline Phosphatase 897 U/L (46-116); Anion Gap 11.0; Aspartate Amino Transferase 113 U/L (15-37); Blood Urea Nitrogen 20.0 mg/dL (7.0-18.0); Calcium 8.0 mg/dL (8.5-10.1); Carbon Dioxide 24.2 mmol/L (21.0-32.0); Chloride 103 mmol/L (98-107); Estimated GFR (African America >60 (>=60 mL/min/1.73m^2); Estimated GFR (Non-African Ame >60 (>=60 mL/min/1.73m^2); Globulin 3.0 g/dL; Glucose 87 mg/dL (74-106); Hematocrit 23.1 % (36.0-48.0); Lipase <10.0 U/L (16.0-77.0); Magnesium 1.4 mg/dL (1.8-2.4); Potassium 4.2 mmol/L (3.5-5.1); Sodium 134 mmol/L (136-145); Total Protein 5.1 g/dL (6.4-8.2)
[2025-01-25 21:57] LABS: Band Neutrophils Absolute 0.0 10^3/uL (0.0-0.3); Segmented Neut Absolute Manual 2.10 10^3/uL (1.4-6.5); Segmented Neutrophils % Manual 70.0 (43.0-75.0)
[2025-01-25 21:58] LABS: Basophils Abs Manual 0.06 10^3/uL (0.00-0.10); Basophils Percent Manual 2.0 % (0.2-2.0); Eosinophils Absolute Manual 0.03 10^3/uL (0.00-0.70); Eosinophils Percent Manual 1.0 % (0.9-7.0); Lymphocytes Absolute Manual 0.63 10^3/uL (1.20-3.80); Lymphocytes Percent Manual 21.0 % (20.5-60.0); Metamyelocytes Absolute Manual 0.03; Monocytes Absolute Manual 0.12 10^3/uL (0.30-0.80); Monocytes Percent Manual 4.0 % (1.7-12.0)
[2025-01-25] MEDS: MAGNESIUM OXIDE 400 MG TABLET PO (22:31)
--- NOTE | 2025-01-26 01:03 | ED_ITS ---
HPI HPI - General Adult General Chief complaint: Abdominal Pain Stated complaint: SOB ABDOMINAL PAIN Time Seen by Provider: 01/25/25 20:07 Source: patient Mode of arrival: walk-in Limitations: no limitations History of Present Illness HPI narrative: Patient is a 24-year-old female, well-known to emergency department, presenting to the emergency department with a 3-day history of worsening abdominal pain. Patient states she has a history of chronic abdominal pain secondary to her history of Crohn's disease. She is on Skyrizi for this, and is also s/p right hemicolectomy. She states that she has had persistent vomiting and decreased p.o. intake over the last few days. She denies any fevers or chills. No diarrhea, constipation, hematochezia, coffee-ground emesis, or melena. She mentions some mild shortness of breath, but no chest pain, cough, or flulike symptoms. Related Data Home Medications ?Medication ?Instructions ?Recorded ?Confirmed albuterol sulfate 90 mcg/actuation 2 puff inhalation Q 6H PRN 11/01/24 01/25/25 aerosol inhaler shortness of breath or wheez ing magnesium oxide 400 mg (241.3 mg 400 mg PO QDAY PRN lo w magnesium 11/01/24 01/25/25 magnesium) tablet Previous Rx's ?Medication ?Instructions ?Recorded ondansetron 4 mg disintegrating 4 mg PO Q6H PRN nausea and 09/11/24 tablet vomiting #30 tabs hyoscyamine sulfate 0.125 mg 0.125 mg sublingual QID P RN 11/19/24 sublingual tablet Cramping #30 tabs prednisone 10 mg tablet 50 mg (5 x 10 mg) PO DAILY # 47 tabs 11/19/24 Allergies Allergy/AdvReac Type Severity Reaction Status Date / Time adhesive Allergy Intermediate Blister Verified 01/25/25 19:47 iron Allergy Intermediate Hives Verified 01/25/25 19:47 ketorolac (From Toradol) Allergy Intermediate hives Verified 01/25/25 19:47 Penicillins Allergy Intermediate Hives Verified 01/25/25 19:47 vancomycin Allergy Intermediate Hives Verified 01/25/25 19:47 tramadol AdvReac Intermediate JAW Verified 01/25/25 19:47 CLENCHING Opioid HPI Opioid Management Most Recent Opioid Data: Last Pain Scale 9 01/25/25, 21:27 Last MAR Pain Assessment 01/25/25, 21:27 Last ORT Total Score 5 11/17/24, 03:25 Last ORT Risk Category Moderate Risk 11/17/24, 03:25 Review of Systems ROS Status of ROS 10 or more systems reviewed and unremark able except as noted in history and below [facility] Medical History (Updated 01/25/25 @ 22:40 by Nikolas Floyd DO) Fatty liver disease, nonalcoholic ?K76.0 - Fatty (change of) liver, not elsewhere classified (ICD-10) Clostridioides difficile infection ?A49.8 - Other bacterial infections of unspecified site (ICD-10) Hypomagnesemia ?E83.42 - Hypomagnesemia (ICD-10) Crohn disease ?K50.90 - Crohn's disease, unspecified, without complications (ICD-10) Abdominal pain ?R10.9 - Unspecified abdominal pain (ICD-10) Failure of outpatient treatment ?Z78.9 - Other specified health status (ICD-10) Severe protein-calorie malnutrition ?E43 - Unspecified severe protein-calorie malnutrition (ICD-10) Exacerbation of Crohn's disease ?K50.90 - Crohn's disease, unspecified, without complications (ICD-10) Anxiety ?F41.9 - Anxiety disorder, unspecified (ICD-10) Leukocytosis ?D72.829 - Elevated white blood cell count, unspecified (ICD-10) Hypokalemia ?E87.6 - Hypokalemia (ICD-10) Hypomagnesemia ?E83.42 - Hypomagnesemia (ICD-10) Crohn's disease with rectal bleeding ?K50.911 - Crohn's disease, unspecified, with rectal bleeding (ICD-10) 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) Crohn's colitis ?K50.10 - Crohn's disease of large intestine without complications (ICD-10) Hypocalcemia ?E83.51 - Hypocalcemia (ICD-10) Exacerbation of Crohn's disease ?K50.90 - Crohn's disease, unspecified, without complications (ICD-10) Abdominal pain ?R10.9 - Unspecified abdominal pain (ICD-10) Nausea and vomiting ?R11.2 - Nausea with vomiting, unspecified (ICD-10) Diarrhea ?R19.7 - Diarrhea, unspecified (ICD-10) IBS (irritable bowel syndrome) ?K58.9 - Irritable bowel syndrome, unspecified (ICD-10) Crohn disease ?K50.90 - Crohn's disease, unspecified, without complications (ICD-10) Surgical History History of colostomy reversal ?Z98.890 - Other specified postprocedural states (ICD-10) History of colon resection ?Z90.49 - Acquired absence of other specified parts of digestive tract (ICD- 10) Social History Highest level of school completed/degree received: high school graduate Little interest or pleasure in doing things: not at all Feeling down, depressed, or hopeless: not at all Exam Narrative Exam Narrative: CONSTITUTIONAL: Well-appearing, answering questions and following commands appropriately SKIN: Was warm and dry. EYES: No scleral icterus or conjunctival pallor EARS, NOSE, THROAT: Tacky mucous membranes RESPIRATORY: Clear to auscultation bilaterally, no wheezes, crackles, or stridor, no use of accessory muscles CARDIOVASCULAR: Normal rate and regular rhythm. There is no S3, S4, murmur, rub. GASTROINTESTINAL: Abdomen is mildly tender to palpation throughout. Non- distended. There is no guarding or rebound tenderness MUSCULOSKELETAL: No peripheral edema. NEUROLOGIC: Patient is awake and alert. Facies were symmetrical. Constitutional Vital Signs, click to edit/add: Last Vital Signs Temp 98.4 F 01/25/25 19:43 Pulse 113 H 01/25/25 19:43 Resp 16 01/25/25 19:43 BP 104/69 01/25/25 19:43 Pulse Ox 100 01/25/25 19:43 O2 Del Method Room Air 01/25/25 19:43 Course Vital Signs Vital signs: Vital Signs Temperature 98.4 F 01/25/25 19:43 Pulse Rate 113 H 01/25/25 19:43 Respiratory Rate 16 01/25/25 19:43 Blood Pressure 104/69 01/25/25 19:43 Pulse Oximetry 100 01/25/25 19:43 Oxygen Delivery Method Room Air 01/25/25 19:43 Temperature 98.4 F 01/25/25 19:43 Pulse Rate 113 H 01/25/25 19:43 Respiratory Rate 16 01/25/25 19:43 Blood Pressure 104/69 01/25/25 19:43 Pulse Oximetry 100 01/25/25 19:43 Oxygen Delivery Method Room Air 01/25/25 19:43 Medical Decision Making MDM Narrative Medical decision making narrative: Patient is a 24-year-old female presenting to the emergency department with 3- day history of abdominal pain, vomiting, and mild shortness of breath. On review of external documentation, she has a known history of Crohn's disease s/p right hemicolectomy. Vital signs on arrival are significant for mild tachycardia, otherwise were within normal limits. She is afebrile and hemodynamically stable. She has mild generalized tenderness to palpation without peritoneal signs. Differential diagnosis includes acute on chronic nonspecific abdominal pain, dehydration, or associated electrolyte/metabolic derangements. I have low concern for an acute Crohn's flare or complication such as intra-abdominal abscess or toxic megacolon given that she has no bloody stools, is minimally tender on exam, and is afebrile. She appears quite comfortable and is watching Netflix on her laptop. IV was established and laboratory studies were obtained. Plain films of the chest and abdomen were ordered. She was treated with IV morphine, IV Benadryl, and 1 L bolus normal saline. Laboratory studies were overall unremarkable and unchanged from November. She is anemic but at her baseline. Mild leukopenia. No significant electrolyte or metabolic derangement. She was mildly hypomagnesemic, this was replaced with oral magnesium oxide. Lipase not elevated. test negative. Chest x-ray independently reviewed/interpreted by myself demonstrated no acute cardiopulmonary process. Abdominal x-rays demonstrated no evidence of bowel obstruction or free air On reevaluation, patient appears quite comfortable. She feels comfortable being discharged and continuing care at home. I do believe the patient is stable for discharge at this time. They were instructed to follow up with her GI doctor as needed. Return precautions were given including any new or worsening symptoms. Patient understands and agrees to the plan. Medical Records Medical records reviewed: Yes I reviewed the patient's medical records Lab Data Lab results reviewed: Yes I reviewed the patient's lab results Labs: Lab Results 01/25/25 Range/Units 21:10 WBC 3.0 L (4.0-11.0) 10^3/uL RBC 2.95 L (4.20-5.40) 10^6/uL Hgb 7.7 L (12.0-16.0) g/dL Hct 23.1 L* (36.0-48.0) % MCV 78.3 L (81.0-99.0) fL MCH 26.1 L (26.7-34.0) pg MCHC 33.3 (29.9-35.2) g/dL RDW 20.1 H (11.0-15.0) % Plt Count 71 L (150-450) 10^3/uL MPV 11.3 (9.5-13.5) fL Seg Neuts % (Manual) 70.0 (43.0-75.0) Band Neutrophils % 1.0 (0-5) % Lymphocytes % (Manual) 21.0 (20.5-60.0) % Monocytes % (Manual) 4.0 (1.7-12.0) % Eosinophils % (Manual) 1.0 (0.9-7.0) % Basophils % (Manual) 2.0 (0.2-2.0) % Metamyelocytes % 1.0 Neutrophils # (Manual) 2.10 (1.4-6.5) 10^3/uL Band Neutrophils # 0.0 (0.0-0.3) 10^3/uL Lymphocytes # (Manual) 0.63 L (1.20-3.80) 10^3/uL Monocytes # (Manual) 0.12 L (0.30-0.80) 10^3/uL Eosinophils # (Manual) 0.03 (0.00-0.70) 10^3/uL Basophils # (Manual) 0.06 (0.00-0.10) 10^3/uL Metamyelocytes # 0.03 Sodium 134 L (136-145) mmol/L Potassium 4.2 (3.5-5.1) mmol/L Chloride 103 (98-107) mmol/L Carbon Dioxide 24.2 (21.0-32.0) mmol/L Anion Gap 11.0 BUN 20.0 H (7.0-18.0) mg/dL Creatinine 1.08 H (0.55-1.02) mg/dL Est GFR ( Amer) >60 (>=60 mL/min/1.73m^2) Est GFR (Non-Af Amer) >60 (>=60 mL/min/1.73m^2) BUN/Creatinine Ratio 18.5 Glucose 87 (74-106) mg/dL Calcium 8.0 L (8.5-10.1) mg/dL Magnesium 1.4 L (1.8-2.4) mg/dL Total Bilirubin 4.1 H (0.2-1.0) mg/dL AST 113 H (15-37) U/L ALT 71 H (14-59) U/L Alkaline Phosphatase 897 H (46-116) U/L Total Protein 5.1 L (6.4-8.2) g/dL Albumin 2.1 L (3.4-5.0) g/dL Globulin 3.0 g/dL Albumin/Globulin Ratio 0.7 Lipase <10.0 L (16.0-77.0) U/L Serum HCG, Qual Negative (NEGATIVE) Imaging Data Chest x-ray: Radiologist's impression: ITS Impressions Chest X-Ray 01/25/25 20:29 IMPRESSION: Patchy opacities both lung bases most confluent right lung base noted. This could suggest developing airspace disease. Recommend follow-up to resolution. Impression dictated by: Emerson Fuentes M.D. 01/25/2025 9:05 PM Dictation Location: [facility] Electronically authenticated by: [id number] Y Date: 01/25/2025 21:05 Abdomen X-Ray 01/25/25 20:32 IMPRESSION: Nonspecific bowel gas pattern. No evidence of free air. Impression dictated by: Emerson Fuentes M.D. 01/25/2025 9:09 PM Dictation Location: [employer] Electronically authenticated by: [id number] Y Date: 01/25/2025 21:09 Discharge Plan Discharge Chief Complaint: Abdominal Pain Clinical Impression: Abdominal pain Qualifiers: Abdominal location: generalized Qualified Code(s): R10.84 - Generalized abdominal pain Patient Disposition: Home, Self-Care Time of Disposition Decision: 22:40 Condition: Good Mode of Transportation: Private Vehicle Prescriptions / Home Meds: No Action ondansetron 4 mg tablet,disintegrating 4 mg PO Q6H PRN (Reason: nausea and vomiting) Qty: 30 0RF prednisone 10 mg tablet 50 mg PO DAILY Qty: 47 0RF Rx Instructions: 5/day for 3 days. 4/day for 3 days, 3/day for 3 days, 2/day for 3 days, 1/day for 3 days, 1/2 /day for 4 days hyoscyamine sulfate 0.125 mg Tablet, Sublingual 0.125 mg sublingual QID PRN (Reason: Cramping) Qty: 30 0RF albuterol sulfate 90 mcg/actuation HFA aerosol inhaler 2 puff INHALATION Q6H PRN (Reason: shortness of breath or wheezing) magnesium oxide 400 mg (241.3 mg magnesium) tablet 400 mg PO QDAY PRN (Reason: low magnesium) Print Language: Andorran Instructions: Abdominal Pain (ED) Referrals: [facility] [Primary Care Provider] - 1 week Discharge Date/Time: 01/25/25 22:52
== END 2025-01-25 22:52 | disposition home or self-care (01) ==
PROVIDERS: Emergency Provider Student in an Organized Health Care Education/Training Program; PCP Nurse Practitioner
DX: R10.84 Generalized abdominal pain (principal); R11.10 Vomiting, unspecified; R06.02 Shortness of breath; K50.90 Crohn's disease, unspecified, without complications; Z90.49 Acquired absence of other specified parts of digestive tract
CPT/HCPCS: 36415; 71046; 74018; 80053; 83690; 83735; 84703; 85007; 85027; 96361; 96365; 96375; 99285; J1200; J2270; J3490